=== PATIENT | female | born 1995 | race Hispanic/Latino ===

== ENCOUNTER 2019-02-08 10:06 | Emergency (ER) | payer OTHER ==
[2019-02-08 10:45] LABS: Absolute Lymphocytes (CBC) 0.9 K/uL (0.7-4.9); Basophils % 0.5 % (0-1.3); Hematocrit 38.2 % (36.0-45.0); Lymphocytes % 22.3 % (15.3-44.8); MPV 8.6 fL (7.6-11.3)
--- NOTE | 2019-02-08 11:03 | RAD REPORT ---
EXAM DESCRIPTION: CT - Head Brain Wo Cont - 02/08/2019 10:46 am CLINICAL HISTORY: WEAKNESS Headache, drowsiness COMPARISON: No comparisons TECHNIQUE: All CT scans are performed using dose optimization technique as appropriate and may inclu de automated exposure control or mA/KV adjustment according to patient size. FINDINGS: No intracranial hemorrhage, hydrocephalus or extra-axial fluid collection.No areas of brai n edema or evidence of midline shift. The paranasal sinuses and mastoids are clear. The calvarium is intact. IMPRESSION: No acute intracranial abnormality.
[2019-02-08 11:05] LABS: ALT/SGPT 16 U/L (12-78); AST/SGOT 16 U/L (15-37); Albumin 3.9 g/dL (3.4-5.0); Alkaline Phosphatase 38 U/L (45-117); BUN Blood Urea Nitrogen 9 mg/dL (7-18); Bicarbonate 28 mmol/L (21-32); Bilirubin Direct 0.1 mg/dL (0-0.2); Bilirubin Total 0.4 mg/dL (0.2-1.0); Glucose Level 89 mg/dL (74-106); Magnesium 2.2 mg/dL (1.8-2.4); Potassium 4.2 mmol/L (3.5-5.1); Sodium Level 140 mmol/L (136-145); Thyroid Stimulating Hormone 0.012 uIU/mL (0.360-3.740)
[2019-02-08 11:06] LABS: Barbiturates NEGATIVE (NEGATIVE); Benzodiazepines NEGATIVE (NEGATIVE); Cocaine NEGATIVE (NEGATIVE); METHAMPHETAM POSITIVE (NEGATIVE); Methadone NEGATIVE (NEGATIVE); Opiates NEGATIVE (NEGATIVE); Phencyclidine NEGATIVE (NEGATIVE); THC Cannibis NEGATIVE (NEGATIVE)
[2019-02-08 11:15] LABS: Urine RBC <5 /HPF (NONE SEEN)
[2019-02-08 11:16] LABS: Urine Bacteria NONE SEEN /HPF (<20); Urine Culture Reflex Order NOT NEEDED
--- NOTE | 2019-02-08 11:36 | EKG ---
Test Date: 2019-02-08 Test Time: 10:17:26 Overnight Caregiver: MEGAN MEASUREMENT RESULTS: Intervals: Rate: 88 NM: 122 QRSD: 78 QT: 364 QTc: 440 [place]: P: 29 NM: 122 QRS: 67 T: 59 INTERPRETIVE STATEMENTS: Normal sinus rhythm RSR' or QR pattern in V1 suggests right ventricular conduction delay Borderline ECG No previous ECG available for comparison Electronically Signed On 02-08-19 11:35:56 CDT by Boni Schneider
[2019-02-08] MEDS ORDERED: NA CHLORIDE 0.9% 1,000 ML ONE (12:50)
--- NOTE | 2019-02-08 13:13 | ER ---
Nurse's Notes [facility] Name: Brenda Moody Age: 23 yrs Sex: Female : 1995 Arrival Date: 02/08/2019 Time: 10:11 Bed 13 Private MD: Diagnosis: Chronic fatigue, unspecified Presentation: 02/08 10:13 Presenting complaint: EMS states: PT was in PCP office when EMS was called because of wh being lethargic. Pt states she is feeling weak and has chronic fatigue. Pt states she has Hx of Hypothyroidism and medication was just changed recently. Pt states she is always feeling tired and heavy. Transition of care: patient was received from another setting of care (ambulatory primary care physician practice), Dr Ronak PEDRO. Onset of symptoms was February 08, 2019. Risk Assessment: Do you want to hurt yourself or someone else? Patient reports no desire to harm self or others. Initial Sepsis Screen: Does the patient meet any 2 criteria? No. Patient's initial sepsis screen is negative. Does the patient have a suspected source of infection? No. Patient's initial sepsis screen is negative. Care prior to arrival: None. 10:13 Method Of Arrival: EMS: [facility] 10:13 Acuity: SHAHAB 3 Triage Assessment: 10:21 General: Appears in no apparent distress. General: Behavior is calm, cooperative, wh appropriate for age. Pain: Denies pain. 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 - Social history:: Smoking status: Patient/guardian denies using tobacco. - Ebola Screening: : Patient negative for fever greater than or equal to 101.5 degrees Fahrenheit, and additional compatible Ebola Virus Disease symptoms Patient denies exposure to infectious person. - Family history:: pertinent for chronic fatigue syndrome. - Hospitalizations: : No recent hospitalization is reported. Screenin:16 Abuse screen: Denies threats or abuse. Denies injuries from another. Nutritional wh screening: No deficits noted. Tuberculosis screening: No symptoms or risk factors identified. Fall Risk None identified. Assessment: 10:59 General: Appears in no apparent distress. General: Behavior is calm, lethargic. Reports wh fatigue for since 1 month ago. Pain: Denies pain. Neuro: Level of Consciousness is awake, alert, obeys commands, Oriented to person, place, time, situation, Appropriate for age Grain Combiner are equal bilaterally Reports weakness. Neuro: Reports. Cardiovascular: Heart tones S1 S2 Rhythm is regular. Respiratory: Airway is patent Respiratory effort is even, unlabored, Respiratory pattern is regular, symmetrical. GI: Abdomen is flat, non-distended, Abd is soft and non tender X 4 quads. : No signs and/or symptoms were reported regarding the genitourinary system. EENT: No signs and/or symptoms were reported regarding the EENT system. Derm: Skin is intact, is healthy with good turgor, Skin is pink, warm \T\ dry. normal. Musculoskeletal: Circulation, motion, and sensation intact. 11:45 Reassessment: Patient appears in no apparent distress at this time. No changes from previously documented assessment. Patient and/or family updated on plan of care and expected duration. Pain level reassessed. Patient is alert, oriented x 3, equal unlabored respirations, skin warm/dry/pink. 12:41 Reassessment: Patient appears in no apparent distress at this time. No changes from previously documented assessment. Patient and/or family updated on plan of care and expected duration. Pain level reassessed. Patient is alert, oriented x 3, equal unlabored respirations, skin warm/dry/pink. 13:36 Reassessment: Patient appears in no apparent distress at this time. No changes from previously documented assessment. Patient and/or family updated on plan of care and expected duration. Pain level reassessed. Patient is alert, oriented x 3, equal unlabored respirations, skin warm/dry/pink. Patient denies pain at this time. Patient states feeling better. Patient states symptoms have improved. Vital Signs: 10:20 BP 107 / 72; Pulse 96; Resp 20; Temp 99.2; Pulse Ox 100% ; wh 11:01 BP 111 / 73; Pulse 87; Resp 20; Pulse Ox 100% on R/A; 11:45 BP 101 / 69; Pulse 80; Resp 16; Pulse Ox 100% on R/A; 12:41 BP 96 / 65; Pulse 76; Resp 16; Pulse Ox 100% ; 13:36 BP 114 / 72; Pulse 70; Resp 18; Pulse Ox 99% on R/A; ED Course: 10:11 Patient arrived in ED. rn 10:11 Ulises Hussein MD is Attending Physician. rn 10:12 Jim Martinez is Primary Nurse. 10:16 Triage completed. 10:19 Arm band placed on right wrist. 10:20 Bed in low position. Call light in reach. Side rails up X 1. personnel monitor on. Pulse ox on. NIBP on. 10:20 Inserted saline lock: 20 gauge in right antecubital area, using aseptic technique. Blood collected. 10:21 Patient has correct armband on for positive identification. Warm blanket given. Cardiac [facility] monitor on. Pulse ox on. NIBP on. 10:46 CT Head Brain wo Cont In Process Unspecified. [facility] 11:02 Urine collected: clean catch specimen, clear, Amount Voided: 240mL EKG done, by ED [facility] staff, reviewed by Ulises Hussein MD. 11:02 Urine Drug Screen Sent. [facility] 11:02 Urine Microscopic Only Sent. [facility] 13:36 No provider procedures requiring assistance completed. 13:39 IV discontinued, intact, bleeding controlled, No redness/swelling at site. Administered Medications: 12:53 Drug: NS 0.9% 1000 ml Route: IV; Rate: 1000 ml; Site: right antecubital; 13:37 Follow up: Response: No adverse reaction; IV Status: Completed infusion Outcome: 13:12 Discharge ordered by . rn 13:40 Discharged to home ambulatory. 13:40 Condition: good 13:40 Discharge instructions given to patient, Instructed on discharge instructions, follow up and referral plans. POC Weakness and Fatigue Demonstrated understanding of instructions, follow-up care, POC 13:40 Patient left the ED. Signatures: Dispatcher [employer] EDKY Ulises Hussein MD MD rn Martinez, Maria Jim Lu Corrections: (The following items were deleted from the chart) 13:39 13:28 Patient did not have IV access during this emergency room visit. IV discontinued, wh Pressure dressing applied, mh5
--- NOTE | 2019-02-08 13:13 | EDPHYS ---
Physician Documentation [facility] Name: Brenda Moody Age: 23 yrs Sex: Female : 1995 Arrival Date: 02/08/2019 Time: 10:11 Bed 13 Private MD: ED Physician Ulises Hussein HPI: 02/08 10:43 This 23 yrs old Female presents to ER via EMS with complaints of weakness. rn 10:43 Reports has chronic fatigue syndrome and was seen by pcp today, sent here for fatigue. rn Patient reports takes her medication including thyroid supplement, vyvanse, and bipolar meds. This happens weekly to monthly, twin sister with same symptoms. Has been worked up numerous times and no diagnosis made. Reports eating well. No fever/injury/chest pain/sob/vomiting/diarrhea. Denies overdose.. Onset: The symptoms/episode began/occurred 1 week(s) ago. Severity of symptoms: At their worst the symptoms were moderate in the emergency department the symptoms are unchanged. The patient has experienced similar episodes in the past. The patient has been recently seen by a physician: the patient's primary care provider. 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 - Social history:: Smoking status: Patient/guardian denies using tobacco. - Ebola Screening: : Patient negative for fever greater than or equal to 101.5 degrees Fahrenheit, and additional compatible Ebola Virus Disease symptoms Patient denies exposure to infectious person. - Family history:: pertinent for chronic fatigue syndrome. - Hospitalizations: : No recent hospitalization is reported. ROS: 10:43 Constitutional: Negative for fever, chills, and weight loss, Eyes: Negative for injury, rn pain, redness, and discharge, Neck: Negative for injury, pain, and swelling, Cardiovascular: Negative for chest pain, palpitations, and edema, Respiratory: Negative for shortness of breath, cough, wheezing, and pleuritic chest pain, Abdomen/GI: Negative for abdominal pain, nausea, vomiting, diarrhea, and constipation, MS/Extremity: Negative for injury and deformity, Skin: Negative for injury, rash, and discoloration, Neuro: Negative for headache, numbness, tingling, and seizure. Exam: 10:43 Constitutional: This is a well developed, well nourished patient who is awake, alert, rn and in no acute distress. Flat affect and slow to respond. Head/Face: Normocephalic, atraumatic. Eyes: Pupils dilated but reactive and equal, no nystagmus ENT: MMM Neck: Trachea midline, no thyromegaly or masses palpated, and no cervical lymphadenopathy. Supple, full range of motion without nuchal rigidity, or vertebral point tenderness. No Meningismus. Cardiovascular: Regular rate and rhythm with a normal S1 and S2. No gallops, murmurs, or rubs. Normal PMI, no JVD. No pulse deficits. Respiratory: Lungs have equal breath sounds bilaterally, clear to auscultation and percussion. No rales, rhonchi or wheezes noted. No increased work of breathing, no retractions or nasal flaring. Abdomen/GI: Soft, non-tender, with normal bowel sounds. No distension or tympany. No guarding or rebound. No evidence of tenderness throughout. Skin: Warm, dry with normal turgor. Normal color with no rashes, no lesions, and no evidence of cellulitis. MS/ Extremity: Pulses equal, no cyanosis. Neurovascular intact. Full, normal range of motion. Equal circumference. Neuro: Awake and alert, GCS 15, oriented to person, place, time, and situation. Cranial nerves II-XII grossly intact. Motor strength 4/5 in all extremities. Sensory grossly intact. Cerebellar exam normal. Vital Signs: 10:20 BP 107 / 72; Pulse 96; Resp 20; Temp 99.2; Pulse Ox 100% ; wh 11:01 BP 111 / 73; Pulse 87; Resp 20; Pulse Ox 100% on R/A; wh 11:45 BP 101 / 69; Pulse 80; Resp 16; Pulse Ox 100% on R/A; wh 12:41 BP 96 / 65; Pulse 76; Resp 16; Pulse Ox 100% ; wh 13:36 BP 114 / 72; Pulse 70; Resp 18; Pulse Ox 99% on R/A; MDM: 10:12 Patient medically screened. rn 13:08 Differential Diagnosis dehydration, chronic fatigue syndrome, electrolyte disorder. . rn Data reviewed: vital signs, nurses notes, lab test result(s), radiologic studies, CT scan, and as a result, I will discharge patient. Counseling: I had a detailed discussion with the patient and/or guardian regarding: lab results, radiology results. Counseling: I had a detailed discussion with the patient and/or guardian regarding: the need for outpatient follow up, to return to the emergency department if symptoms worsen or persist or if there are any questions or concerns that arise at home. Response to treatment: the patient's symptoms have mildly improved after treatment, and as a result, I will discharge patient. Special discussion: I discussed with the patient/guardian in detail that at this point there is no indication for admission to the hospital. It is understood, however, that if the symptoms persist or worsen the patient needs to return immediately for re-evaluation. ED course: Pt states slightly improved, states this happens frequently. She tells me she drove herself to clinic today. And plans on walking back to clinic. No acute findings on ct head or bloodwork. Will dc home. Reeval does not show any meningeal signs, denies headache or neck pain. . 02/08 10:13 Order name: CBC with Diff; Complete Time: :41 rn 02/08 10:13 Order name: Basic Metabolic Panel; Complete Time: : rn 02/08 10:13 Order name: Urine Drug Screen; Complete Time: : rn 02/08 10:13 Order name: Urine Microscopic Only; Complete Time: :41 rn 02/08 10:13 Order name: Magnesium; Complete Time: :41 rn 02/08 10:13 Order name: TSH; Complete Time: :41 rn 02/08 10:13 Order name: T4 Free; Complete Time: : rn 02/08 10:13 Order name: Acetaminophen; Complete Time: :41 rn 02/08 10:13 Order name: ETOH Level; Complete Time: 11:41 rn 02/08 10:13 Order name: Hepatic Function; Complete Time: 11:41 rn 02/08 10:13 Order name: Salicylate; Complete Time: 12:47 rn 02/08 10:13 Order name: CT Head Brain wo Cont; Complete Time: 11:41 rn 02/08 11:20 Order name: Urine Dipstick--Ancillary (enter results) 02/08 11:21 Order name: Urine --Ancillary (enter results) 02/08 10:13 Order name: IV Start; Complete Time: 10:31 rn 02/08 10:13 Order name: Urine Test (obtain specimen); Complete Time: 10:53 rn 02/08 10:13 Order name: Urine Dipstick-Ancillary (obtain specimen); Complete Time: 10:53 rn 02/08 10:13 Order name: EKG; Complete Time: 10:15 rn 02/08 10:13 Order name: EKG - Nurse/Tech; Complete Time: 10:32 rn 02/08 10:13 Order name: Labs collected and sent; Complete Time: 10:32 rn Administered Medications: 12:53 Drug: NS 0.9% 1000 ml Route: IV; Rate: 1000 ml; Site: right antecubital; 13:37 Follow up: Response: No adverse reaction; IV Status: Completed infusion Disposition: 02/08/19 13:12 Discharged to Home. Impression: Chronic fatigue, unspecified. - Condition is Stable. - Discharge Instructions: Weakness, Fatigue. - Medication Reconciliation Form, Thank You Letter, Antibiotic Education, Prescription Opioid Use, Work release form form. - Follow up: Private Physician; When: As needed; Reason: Recheck today's complaints, Re-evaluation by your physician. - Problem is chronic. - Symptoms have improved. Signatures: Dispatcher [employer] EDUlises Smith MD MD rn Habalo, Winsy Corrections: (The following items were deleted from the chart) 13:40 13:12 02/08/2019 13:12 Discharged to Home. Impression: Chronic fatigue, unspecified. Condition is Stable. Forms are Medication Reconciliation Form, Thank You Letter, Antibiotic Education, Prescription Opioid Use. Follow up: Private Physician; When: As needed; Reason: Recheck today's complaints, Re-evaluation by your physician. Problem is chronic. Symptoms have improved. rn
[2019-02-08 13:58] VITALS: BP 114/72; O2SAT 99
[2019-02-08 14:04] VITALS: TEMP 97.5
[2019-02-08 14:16] LABS: Urine Blood NEGATIVE (NEG); Urine Glucose NEGATIVE (NEG); Urine Protein NEGATIVE (NEG); Urine pH 8.5 (5.0-7.0)
== END 2019-02-08 13:40 | disposition home or self-care (01) ==
LOC: ER 10:06
DX: R53.82 Chronic fatigue, unspecified (principal); E03.9 Hypothyroidism, unspecified
CPT/HCPCS: 93005; 85025; 80048; 36415; 80320; 83735; 80329 ×2; 81025; 80076; 80307 ×8; 84443; 84439; 70450; 96360; 99285; J7030; 81003; 81015

== ENCOUNTER 2019-04-11 12:40 | Emergency (ER) | payer OTHER ==
--- OUTSIDE RECORDS SUMMARY | 2019-04-11 12:42 | XMS REPORT ---
:1995 Author Organization e[employer] Care Team Providers Name Role Phone Adriano Simons Provider Role Unavailable Allergies No Known Allergies Problems Problem Type Condition Code Onset Dates Condition Status Problem Depression with anxiety F41.8 Active Problem Hypothyroidism, unspecified type E03.9 Active Problem Chronic fatigue R53.82 Active Assessment Hypothyroidism, unspecified type E03.9 Active Problem Bipolar II disorder major depressive F31.81 Active with atypical features Problem Seasonal allergies J30.2 Active Problem 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 Active Problem History of suicide attempt Z91.5 Active Problem Daytime somnolence R40.0 Active Problem Abnormal laboratory test R89.9 Active Problem Vitamin D insufficiency E55.9 Active Problem History of cold sores Z86.19 Active Problem Vitamin B12 deficiency E53.8 Active Medications Medication Code Code Instructions Start End Status Dosage System Date Date Synthroid [facility] 73993986625 125 MCG Orally Mar 16, Active 0.5 Once a day 2019 tablet on an empty stonach in the morning Levothyroxine ND 68674668151 50 MCG Orally Inactive 1 tablet Sodium Once a day on an empty stomach in the morning Results No Known Results Summary Purpose eClinicalWorks Submission
--- OUTSIDE RECORDS SUMMARY | 2019-04-11 12:42 | XMS REPORT ---
:1995 Author Organization [employer] Care Team Providers Name Role Phone SimonsAdriano Provider Role Unavailable Allergies, Adverse Reactions, Alerts Substance Reaction Event Type N.K.D.A. Info Not Available Non Drug Allergy Problems Problem Type Condition Code Onset Dates Condition Status Problem Depression with anxiety F41.8 Active Problem Hypothyroidism, unspecified type E03.9 Active Problem Chronic fatigue R53.82 Active Problem 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 Active Assessment History of cold sores Z86.19 Active Problem History of suicide attempt Z91.5 Active Assessment Encounter for surveillance of Z30.41 Active contraceptive pills Assessment History of suicide attempt Z91.5 Active Problem Daytime somnolence R40.0 Active Problem Abnormal laboratory test R89.9 Active Problem Vitamin D insufficiency E55.9 Active Problem History of cold sores Z86.19 Active Problem Vitamin B12 deficiency E53.8 Active Assessment Seasonal allergies J30.2 Active Assessment Depression with anxiety F41.8 Active Assessment Vitamin D insufficiency E55.9 Active Assessment Vitamin B12 deficiency E53.8 Active Assessment Bipolar II disorder major depressive F31.81 Active with atypical features Assessment Daytime somnolence R40.0 Active Assessment 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 Active Assessment Hypothyroidism, unspecified type E03.9 Active Problem Bipolar II disorder major depressive F31.81 Active with atypical features Assessment Noncompliance w/medication treatment Z91.14 Active due to intermit use of medication Assessment Chronic fatigue R53.82 Active Problem Seasonal allergies J30.2 Active Medications Medication Code Code Instructions Start End Status Dosage System Date Date Olanzapine [facility] 77531537670 2.5 MG Orally Active 1 tablet Once a day Prozac [facility] 37240507246 10 MG Orally Active 1 capsule Once a day Acyclovir ND 24578957177 400 MG Orally Active 1 tablet Three times a day Levothyroxine ND 22161162615 75 MCG Orally Active 1 tablet Sodium Once a day on an empty stomach in the morning Taytulla [facility] 47359706064 1-20 MG-MCG(24) Active 1 capsule Orally Once a day Brock [facility] 05006319360 50 MG Orally Mar 14, Active 1 capsule Once a day 2018 in the morning Josette [facility] 31488213709 2 MG Orally Active 1 tablet Once a day Results Name Result Date Reference Range Unit Abnormality Flag CBC With Differential/Platelet ----Lymphs 30 [id number] Not Estab. % ----Neutrophils 62 [id number] Not Estab. % ----Baso (Absolute) 0.0 [id number] 0.0-0.2 x10E3/uL ----Hemoglobin 12.2 45952486 11.1-15.9 g/dL ----Eos (Absolute) 0.1 [id number] 0.0-0.4 x10E3/uL ----Hematocrit 37.5 43692144 34.0-46.6 % ----Monocytes(Absolute) 0.4 [id number] 0.1-0.9 x10E3/uL ----MCV 80 04182261 79-97 fL ----Lymphs (Absolute) 1.7 95483728 0.7-3.1 x10E3/uL ----MCH 26.0 [id number] 26.6-33.0 pg L ----Neutrophils 3.4 [id number] 1.4-7.0 x10E3/uL (Absolute) ----MCHC 32.5 47280225 31.5-35.7 g/dL ----Immature 0 [id number] Not Estab. % Granulocytes ----Basos 0 [id number] Not Estab. % ----RDW 13.9 18213438 12.3-15.4 % ----Immature Grans (Abs) 0.0 [id number] 0.0-0.1 x10E3/uL ----Eos 1 79673842 Not Estab. % ----WBC 5.5 37239474 3.4-10.8 x10E3/uL ----Platelets 377 [id number] 150-450 x10E3/uL ----RBC 4.69 69594144 3.77-5.28 x10E6/uL ----Monocytes 7 [id number] Not Estab. % Thyroid Panel With TSH ----TSH 0.027 [id number] 0.450-4.500 uIU/mL L ----Thyroxine (T4) 9.5 05272779 4.5-12.0 ug/dL ----T3 Uptake 25 20190314 24-39 % ----Free Thyroxine Index 2.4 [id number] 1.2-4.9 Comp. Metabolic Panel (14) (CMP) ----Sodium 141 94151167 134-144 mmol/L ----BUN/Creatinine Ratio 16 [id number] 9-23 ----Chloride 103 03323659 96-106 mmol/L ----Potassium 4.1 36336868 3.5-5.2 mmol/L ----Calcium 9.1 70267313 8.7-10.2 mg/dL ----Protein, Total 6.8 89013680 6.0-8.5 g/dL ----Carbon Dioxide, 19 20190314 20-29 mmol/L L Total ----A/G Ratio 1.5 24318210 1.2-2.2 ----eGFR If NonAfricn Am 126 [id number] >59 mL/min/1.73 ----Bilirubin, Total <0.2 58926556 0.0-1.2 mg/dL ----eGFR If Africn Am 145 [id number] >59 mL/min/1.73 ----Albumin 4.1 98287742 3.5-5.5 g/dL ----BUN 10 18340154 6-20 mg/dL ----Globulin, Total 2.7 24928861 1.5-4.5 g/dL ----Creatinine 0.64 63438951 0.57-1.00 mg/dL ----ALT (SGPT) 7 [id number] 0-32 IU/L ----Glucose 143 11025084 65-99 mg/dL H ----Alkaline Phosphatase 37 [id number] 39-117 IU/L L ----AST (SGOT) 16 [id number] 0-40 IU/L Summary Purpose eClinicalWorks Submission
--- OUTSIDE RECORDS SUMMARY | 2019-04-11 12:42 | XMS REPORT ---
[...] Start End Status Dosage System Date Date Levothyroxine [facility] 03663832681 75 MCG Orally Active 1 tablet Sodium Once a day on an empty stomach in the morning Acyclovir [facility] 24198614282 400 MG Orally Active 1 tablet Three times a day Taytulla [facility] 36398450158 1-20 MG-MCG(24) Active 1 capsule Orally Once a day Vyvanse [facility] 58252363380 40 MG Orally Feb 24, Active 1 capsule Once a day 2019 in the morning Olanzapine [facility] 34509987954 2.5 MG Orally Active 1 tablet Once a day Prozac [facility] 03180180973 10 MG Orally Active 1 capsule Once a day Abilify [facility] 92975646675 2 MG Orally Active 1 tablet Once a day Results No Known Results Summary Purpose eClinicalWorks Submission
--- NOTE | 2019-04-11 12:58 | RAD REPORT ---
EXAM DESCRIPTION: CT - Ct Stroke Brain Wo Cont - 04/11/2019 12:53 pm CLINICAL HISTORY: stroke protocol CVA symptomology COMPARISON: Head Brain Wo Cont dated 02/08/2019 TECHNIQUE: All CT scans are performed using dose optimization technique as appropriate and may inclu de automated exposure control or mA/KV adjustment according to patient size. FINDINGS: No intracranial hemorrhage, hydrocephalus or extra-axial fluid collection.No areas of brai n edema or evidence of midline shift. The paranasal sinuses and mastoids are clear. The calvarium is intact. IMPRESSION: No acute intracranial abnormality. The findings were discussed with Rajendra Hendrix in the ER on 03/12/2019 at 12:50 p.m. by telephone.
[2019-04-11 13:16] LABS: Absolute Lymphocytes (CBC) 1.3 K/uL (0.7-4.9); Hematocrit 37.5 % (36.0-45.0); Lymphocytes % 25.6 % (15.3-44.8); MPV 7.6 fL (7.6-11.3); RBC Red Blood Cell Count 4.77 M/uL (3.86-4.86)
[2019-04-11 13:19] LABS: Protime INR 0.97
--- NOTE | 2019-04-11 13:24 | RAD REPORT ---
EXAM DESCRIPTION: RAD - Chest Single View - 04/11/2019 1:18 pm CLINICAL HISTORY: stroke protocol Chest pain. COMPARISON: No comparisons FINDINGS: Portable technique limits examination quality. The lungs are grossly clear. The heart is normal in size. No displaced fractures. IMPRESSION: No acute intrathoracic process suspected.
[2019-04-11 13:29] LABS: BUN Blood Urea Nitrogen 8 mg/dL (7-18); Bicarbonate 28 mmol/L (21-32); Glucose Level 70 mg/dL (74-106); Potassium 4.1 mmol/L (3.5-5.1); Sodium Level 141 mmol/L (136-145)
--- NOTE | 2019-04-11 13:45 | RAD REPORT ---
EXAM DESCRIPTION: MRI - Brain Wo Cont - 04/11/2019 1:37 pm CLINICAL HISTORY: right facial weakness and numbness CVA symptomology COMPARISON: Ct Stroke Brain Wo Cont dated 04/11/2019 TECHNIQUE: Multi-sequence, multiplanar MR imaging of the brain was performed without contrast. FINDINGS: No intracranial hemorrhage, hydrocephalus or extra-axial fluid collections. No edema or sh ift of midline structures. No findings to suspect brain mass. DWI is negative for acute CVA. Midline structures are normally formed. The paranasal sinuses appear clear. Trace bilateral mastoid effusion. IMPRESSION: Negative for acute CVA or other acute intracranial abnormality.
[2019-04-11 15:13] LABS: Urine Bacteria <20 /HPF (<20); Urine Culture Reflex Order NOT NEEDED; Urine RBC <5 /HPF (NONE SEEN)
--- NOTE | 2019-04-11 15:17 | ER ---
Nurse's Notes [facility] Name: Brenda Moody Age: 24 yrs Sex: Female : 1995 Arrival Date: 04/11/2019 Time: 12:43 Bed 25 Private MD: Diagnosis: Slurred speech;Paresthesia of skin Presentation: 04/11 12:40 No acute neurological deficit is noted. The patients blood glucose was checked before ca1 arriving to the hospital and was found to be normal. 12:45 Presenting complaint: Patient states: started 45 minutes ago. Pt started to have ca1 trouble speaking, facial drooping on the L side, numbness and tingling on the face, weakness side unspecified. Pt drove herself to the ER. Transition of care: patient was not received from another setting of care. Onset of symptoms was April 11, 2019 at 12:00. Risk Assessment: Do you want to hurt yourself or someone else? Patient reports no desire to harm self or others. Initial Sepsis Screen: Does the patient meet any 2 criteria? No. Patient's initial sepsis screen is negative. Does the patient have a suspected source of infection? No. Patient's initial sepsis screen is negative. Care prior to arrival: None. 12:45 Method Of Arrival: Wheelchair ca1 12:45 Acuity: SHAHAB 2 ca1 Triage Assessment: 12:45 The onset of the patients symptoms was April 11, 2019 at 12:00. ca1 12:45 Neuro: Reports difficulty speaking. ca1 12:45 General: Appears in no apparent distress. comfortable, Behavior is calm, cooperative, ca1 appropriate for age. 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 ca1 Stroke Activation: Symptom onset < 3 hours Physician: Stroke Attending; Name: ; Notified At: ; Arrived At: Physician: Chief Stroke Resident; Name: ; Notified At: ; Arrived At: Physician: Stroke Resident; Name: ; Notified At: ; Arrived At: Physician: ED Attending; Name: ; Notified At: ; Arrived At: Physician: ED Resident; Name: ; Notified At: ; Arrived At: Historical: - Allergies: 13:56 No Known Allergies; ca1 - Home Meds: 13:56 Abilify 2 mg Oral tab daily [Active]; levothyroxine 50 mcg tab 1 tab once daily ca1 [Active]; Taytulla ( Control Pills) [Active]; olanzapine oral oral [Active]; Fluoxetine Oral [Active]; - PMHx: 13:56 Hypothyroidism; Endometrosis; ca1 - Immunization history:: Adult Immunizations up to date, Flu vaccine is not up to date. - Family history:: not pertinent. - Ebola Screening: : Patient negative for fever greater than or equal to 101.5 degrees Fahrenheit, and additional compatible Ebola Virus Disease symptoms. - Social history:: Smoking status: Patient/guardian denies using tobacco, Patient uses alcohol, occasionally. - Hospitalizations: : No recent hospitalization is reported. Screenin:05 Abuse screen: Denies threats or abuse. Denies injuries from another. Nutritional ca1 screening: No deficits noted. Tuberculosis screening: No symptoms or risk factors identified. Fall Risk IV access (20 points). Gait- Weak (10 pts.). Total Holt Fall Scale indicates Low Risk Score (25-44 pts). Fall prevention measures have been instituted. Side Rails Up X 2 Frequent Obs/Assesments occuring. Assessment: 12:44 Reassessment: Code stroke called. Patient transported to CT VIA wheelchair by meño Zepeda RN. 13:05 General: Appears in no apparent distress. uncomfortable, Behavior is calm, cooperative, ca1 appropriate for age. Neuro: Level of Consciousness is awake, alert, obeys commands, Oriented to person, place, time, situation, Appropriate for age Electrotyper Helper are equal bilaterally Weakness in bilateral leg(s) Gait is unsteady, Speech is slurred, Facial droop on left, Pupils are PERRLA, Intact sensation on both extremities. C/O numbness on R side of face. . Cardiovascular: Heart tones S1 S2 present Capillary refill < 3 seconds Patient's skin is warm and dry. Respiratory: Airway is patent Respiratory effort is even, unlabored, Respiratory pattern is regular, symmetrical, Breath sounds are clear bilaterally. GI: Abdomen is flat, non-distended, Bowel sounds present X 4 quads. Abd is soft and non tender X 4 quads. : No deficits noted. No signs and/or symptoms were reported regarding the genitourinary system. EENT: No deficits noted. No signs and/or symptoms were reported regarding the EENT system. Derm: Skin is intact, is healthy with good turgor, Skin is pink, warm \T\ dry. Musculoskeletal: Circulation, motion, and sensation intact. Capillary refill < 3 seconds, Range of motion: intact in all extremities. 13:45 VAN Scoring: Arm Drift: Patients demonstrates NO arm weakness. Patient is VAN Negative. ca1 Patient has been NPO before screening. The patient is alert, and able to follow commands. The patient does not exhibit slurred or garbled speech. The patient is not exhibiting difficulty speaking. The patient is exhibiting difficulty understanding words. The patient is able to swallow own secretions with no drooling or need for suction. Patient tolerated one teaspoon of water. No drooling, immediate coughing, gurgling, or clearing of the throat was noted. The patient tolerated 90mL of water. No drooling, immediate coughing, gurgling, or clearing of the throat was noted. The patient passed the bedside swallow screening. Oral medications may be given as ordered. Contact Physician for further diet orders. Provider notified of bedside swallow screening results: Katelyn Woods RN. 13:47 Reassessment: Pt back from MRI. Reassessment: Patient appears in no apparent distress ca1 at this time. Speech is normal at this time. Swallow screen done. Passed. Requested for her cellphone to be handed to her. Using her phone at this time. Pain: Denies pain. Neuro: Speech is normal, Facial symmetry appears normal. 14:40 Reassessment: Patient appears in no apparent distress at this time. Patient is alert, ca1 oriented x 3, equal unlabored respirations, skin warm/dry/pink. Speech normal. Facial symmetry normal. 15:20 Reassessment: Patient appears in no apparent distress at this time. No changes from ca1 previously documented assessment. Patient is alert, oriented x 3, equal unlabored respirations, skin warm/dry/pink. Vital Signs: 12:45 BP 122 / 85; Pulse 83; Resp 17 S; Temp 99.5(O); Pulse Ox 100% on R/A; ca1 13:47 BP 131 / 82; Pulse 85; Resp 18 S; Pulse Ox 100% on R/A; Weight 54.43 kg (R); Height 5 ca1 ft. 3 in. (160.02 cm) (R); Pain 0/10; 14:40 BP 117 / 79; Pulse 84; Resp 16 S; Pulse Ox 100% on R/A; ca1 15:20 BP 110 / 79; Pulse 85; Resp 17 S; Pulse Ox 100% on R/A; ca1 13:47 Body Mass Index 21.26 (54.43 kg, 160.02 cm) ca1 NIH Stroke Scale Scores: 13:10 NIHSS Score: 3 ca1 13:35 NIHSS Score: 3 tavern operator Course: 12:43 Patient arrived in ED. aj1 12:44 Ulises Hussein MD is Attending Physician. rn 12:45 Arm band placed on right wrist. ca1 12:54 CT Stroke Brain w/o Contrast In Process Unspecified. EDMS 13:01 Katelyn Woods, RN is Primary Nurse. ca1 13:05 Patient has correct armband on for positive identification. Placed in gown. Bed in low ca1 position. Call light in reach. Side rails up X2. hall monitor on. Pulse ox on. NIBP on. Warm blanket given. 13:09 EKG done, by appliance service technician. reviewed by Ulises Hussein MD. at1 13:12 No provider procedures requiring assistance completed. Inserted saline lock: 20 gauge ca1 in left antecubital area, using aseptic technique. Blood collected. 13:16 Triage completed. ca1 13:19 Stroke CXR 1 View In Process Unspecified. EDMS 13:21 Brain Wo Cont MRI In Process Unspecified. EDMS 13:21 Patient moved to MRI via stretcher. ca1 15:30 IV discontinued, intact, bleeding controlled, No redness/swelling at site. Pressure ca1 dressing applied. Administered Medications: No medications were administered Point of Care Testing: Blood Glucose: 13:10 Blood Glucose: 78 mg/dL; ca1 Ranges: Outcome: 15:16 Discharge ordered by . rn 15:30 Discharged to home ambulatory. ca1 15:30 Condition: stable 15:30 Discharge instructions given to patient, Instructed on discharge instructions, follow up and referral plans. Demonstrated understanding of instructions, follow-up care. 15:34 Patient left the ED. ca1 NIH Stroke Scale - NIH Stroke Score Date: 04/11/2019 Time: 13:10 Total Score = 3 1a. Level of Consciousness (LOC) - 0(Alert) 1b. Level of Consciousness (LOC) (Year \T\ Age) - 0(Both) 1c. LOC Commands (Open \T\ Closes Eyes/Industrial Welder) - 0(Both) 2. Best Gaze (Lateral Gaze Paresis) - 0(Normal) 3. Visual Field Loss - 0(No visual loss) 4. Facial Palsy - 1(Minor Paralysis) 5a. Left Arm: Motor (10-second hold) - 0(No drift) 5b. Right Arm: Motor (10-second hold) - 0(No drift) 6a. Left Leg: Motor (5-second hold - always test supine) - 0(No drift) 6b. Right Leg: Motor (5-second hold - always test supine) - 0(No drift) 7. Limb Ataxia (finger/nose \T\ heel/nye - test with eyes open) - 0(Absent) 8. Sensory Loss (pinprick arms/legs/face) - 0(Normal) 9. Best Language: Aphasia (description/naming/reading) - 1(Mild to moderate aphasia) 10. Dysarthria (speech clarity - read or repeat words) - 1(Mild to Moderate) 11. Extinction and Inattention (visual/tactile/auditory/spatial/personal) - 0(No abnormality) Initials: ca1 NIH Stroke Scale - NIH Stroke Score Date: 04/11/2019 Time: 13:35 Total Score = 3 1a. Level of Consciousness (LOC) - 0(Alert) 1b. Level of Consciousness (LOC) (Year \T\ Age) - 0(Both) 1c. LOC Commands (Open \T\ Closes Eyes/Industrial Welder) - 0(Both) 2. Best Gaze (Lateral Gaze Paresis) - 0(Normal) 3. Visual Field Loss - 0(No visual loss) 4. Facial Palsy - 1(Minor Paralysis) 5a. Left Arm: Motor (10-second hold) - 0(No drift) 5b. Right Arm: Motor (10-second hold) - 0(No drift) 6a. Left Leg: Motor (5-second hold - always test supine) - 0(No drift) 6b. Right Leg: Motor (5-second hold - always test supine) - 0(No drift) 7. Limb Ataxia (finger/nose \T\ heel/nye - test with eyes open) - 0(Absent) 8. Sensory Loss (pinprick arms/legs/face) - 1(Mild to moderate loss) 9. Best Language: Aphasia (description/naming/reading) - 0(No aphasia) 10. Dysarthria (speech clarity - read or repeat words) - 1(Mild to Moderate) 11. Extinction and Inattention (visual/tactile/auditory/spatial/personal) - 0(No abnormality) Initials: rn Signatures: Dispatcher [employer] EDOmaira Juarez, RN RN aj1 Ulises Hussein MD MD rn Smirch, Shelby, RN RN ss [place], medical doctor EKG Tat1 Katelyn Woods RN RN ca1 Corrections: (The following items were deleted from the chart) 12:50 12:44 Reassessment: Code stroke called. Patient transported to CT VIA wheelchair by Darya Roberts RN 13:18 12:45 BP 122 / 85; Pulse 83bpm; Resp 17bpm; Spontaneous; Pulse Ox 100% RA; ca1 ca1 13:57 13:47 Neuro: Speech is normal, ca1 ca1 13:57 13:47 Reassessment: Patient appears in no apparent distress at this time. ca1 Speech is normal at this time. Swallow screen done. Passed. Requested for her cellphone to be handed to her. Using her phone at this time. ca1 15:21 15:20 Reassessment: Patient appears in no apparent distress at this time. ca1 Patient is alert, oriented x 3, equal unlabored respirations, skin warm/dry/pink. ca1
--- NOTE | 2019-04-11 15:18 | EDPHYS ---
Physician Documentation [facility] Name: Brenda Moody Age: 24 yrs Sex: Female : 1995 Arrival Date: 04/11/2019 Time: 12:43 Bed 25 Private MD: ED Physician Ulises Hussein HPI: 04/11 13:00 This 24 yrs old Female presents to ER via Unassigned with complaints of facial rn weakness and numbness. 13:00 Patient reports approx 45 min prior to arrival began with total body pain, generalized rn weakness, numbness and weakness of right side of face. I have seen her before for chronic fatigue syndrome where she becomes so weak that she cannot move or speak for hours, has had multiple negative stroke and neuro w/u, patient states feels similar except for facial symptoms. No head injury. + recent cold symptoms.. 13:00 The patient presents to the emergency department with weakness of the right side of the rn face, entire body, generalized weakness. Onset: The symptoms/episode began/occurred 45 minute(s) ago. Associated signs and symptoms: Pertinent positives: weakness, Pertinent negatives: chills, fever, neck stiffness, paresthesias, seizure, syncope, near-syncope, blurred vision, double vision, visual field changes, loss of vision. Severity of symptoms: At their worst the symptoms were moderate in the emergency department the symptoms have improved. Current symptoms: generalized weakness. The patient has experienced similar episodes in the past. 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 - Family history:: not pertinent. - Ebola Screening: : Patient negative for fever greater than or equal to 101.5 degrees Fahrenheit, and additional compatible Ebola Virus Disease symptoms. - Social history:: Smoking status: Patient/guardian denies using tobacco, Patient uses alcohol, occasionally. - Hospitalizations: : No recent hospitalization is reported. ROS: 13:00 Constitutional: Negative for fever, chills, and weight loss, Eyes: Negative for injury, rn pain, redness, and discharge, Neck: Negative for injury, pain, and swelling, Cardiovascular: Negative for chest pain, palpitations, and edema, Respiratory: Negative for shortness of breath, cough, wheezing, and pleuritic chest pain, Abdomen/GI: Negative for abdominal pain, nausea, vomiting, diarrhea, and constipation, MS/Extremity: Negative for injury and deformity, Skin: Negative for injury, rash, and discoloration, Neuro: Negative for headache, and seizure. Exam: 13:00 Constitutional: This is a well developed, well nourished patient who is awake, alert, rn and in no acute distress. Appears anxious and able to ambulate from wheelchair to bed Head/Face: Normocephalic, atraumatic. Eyes: Pupils equal round and reactive to light, extra-ocular motions intact. Lids and lashes normal. Conjunctiva and sclera are non-icteric and not injected. Cornea within normal limits. Periorbital areas with no swelling, redness, or edema. ENT: MMM Neck: Trachea midline, no thyromegaly or masses palpated, and no cervical lymphadenopathy. Supple, full range of motion without nuchal rigidity, or vertebral point tenderness. No Meningismus. Cardiovascular: Regular rate and rhythm. No pulse deficits. Respiratory: No increased work of breathing, no retractions or nasal flaring. Abdomen/GI: Soft, non-tender MS/ Extremity: Pulses equal, no cyanosis. Neurovascular intact. Full, normal range of motion. Equal circumference. Neuro: Awake and alert, GCS 15, oriented to person, place, time, and situation. Unable to elevated right eyebrow, unable to fully smile on left side of mouth, no ptosis. 4/5 strength in all extremities and able to ambulate without assistance. Normal sensation of all 4 extremities. + decreased sensation to soft touch right lower face. 13:07 ECG was reviewed by the Attending Physician. rn Vital Signs: 12:45 BP 122 / 85; Pulse 83; Resp 17 S; Temp 99.5(O); Pulse Ox 100% on R/A; ca1 13:47 BP 131 / 82; Pulse 85; Resp 18 S; Pulse Ox 100% on R/A; Weight 54.43 kg (R); Height 5 ca1 ft. 3 in. (160.02 cm) (R); Pain 0/10; 14:40 BP 117 / 79; Pulse 84; Resp 16 S; Pulse Ox 100% on R/A; ca1 15:20 BP 110 / 79; Pulse 85; Resp 17 S; Pulse Ox 100% on R/A; ca1 13:47 Body Mass Index 21.26 (54.43 kg, 160.02 cm) ca1 NIH Stroke Scale Scores: 13:10 NIHSS Score: 3 ca1 13:35 NIHSS Score: 3 rn MDM: 12:44 Patient medically screened. rn 15:11 Data reviewed: vital signs, nurses notes, lab test result(s), EKG, radiologic studies, rn CT scan, MRI, and as a result, I will discharge patient. Counseling: I had a detailed discussion with the patient and/or guardian regarding: the historical points, exam findings, and any diagnostic results supporting the discharge/admit diagnosis, lab results, radiology results, the need for outpatient follow up, to return to the emergency department if symptoms worsen or persist or if there are any questions or concerns that arise at home. Response to treatment: the patient's symptoms have markedly improved after treatment, the patient's symptoms have resolved after treatment, the patient's condition has returned to base line, the patient is now symptom free, patient is well hydrated. and as a result, I will discharge patient. Special discussion: I discussed with the patient/guardian in detail that at this point there is no indication for admission to the hospital. It is understood, however, that if the symptoms persist or worsen the patient needs to return immediately for re-evaluation. Based on the history and exam findings, there is no indication for further emergent testing or inpatient evaluation. I discussed with the patient/guardian the need to see the neurologist for further evaluation of the symptoms. ED course: Symptoms have entirely resolved, CT head/labs/ekg/MRI brain negative. Normal vitals. Will dc home given neg w/u, resolution of symptoms, and similar to previous severe fatigue/unexplained neurological episodes. . 04/11 12:49 Order name: Basic Metabolic Panel; Complete Time: 13:34 ss 04/11 12:49 Order name: CBC with Diff; Complete Time: 13:34 ss 04/11 12:49 Order name: Protime (+inr); Complete Time: 13:34 ss 04/11 12:49 Order name: Ptt, Activated; Complete Time: 13:34 ss 04/11 12:57 Order name: Urine Microscopic Only; Complete Time: 15:17 rn 04/11 13:21 Order name: Glucose, Ancillary Testing; Complete Time: 13:34 EDMS 12 12:49 Order name: CT Stroke Brain w/o Contrast; Complete Time: 13:34 ss 04/11 12:49 Order name: Stroke CXR 1 View; Complete Time: 13:34 ss 04/11 12:49 Order name: EKG; Complete Time: 12:50 ss 04/11 12:49 Order name: Accucheck; Complete Time: 14:00 ss 04/11 12:49 Order name: Cardiac monitoring; Complete Time: 13:02 ss 04/11 12:49 Order name: EKG - Nurse/Tech; Complete Time: 14:00 ss 04/11 12:49 Order name: IV Saline Lock; Complete Time: 13:02 ss 04/11 13:00 Order name: Brain Wo Cont MRI; Complete Time: 14:04 rn 04/11 12:49 Order name: Labs collected and sent; Complete Time: 13:02 ss 04/11 12:49 Order name: NPO; Complete Time: 13:02 ss 04/11 12:49 Order name: O2 Per Protocol; Complete Time: 13:02 ss 04/11 12:49 Order name: O2 Sat Monitoring; Complete Time: 13:02 ss 04/11 12:49 Order name: Stroke Swallow Screen; Complete Time: 14:00 ss 04/11 12:57 Order name: Urine Test (obtain specimen); Complete Time: 15:20 rn 04/11 12:57 Order name: Urine Dipstick-Ancillary (obtain specimen); Complete Time: 15:20 rn EC:07 Rate is 85 beats/min. Rhythm is regular. QRS [place] is Normal. ND interval is normal. QRS rn interval is normal. QT interval is normal. No Q waves. T waves are Normal. No ST changes noted. Clinical impression: Normal ECG. Interpreted by me. Reviewed by me. Administered Medications: No medications were administered Point of Care Testing: Blood Glucose: 13:10 Blood Glucose: 78 mg/dL; ca1 Ranges: Critical Glucose Levels:Adult <50 mg/dl or >400 mg/dl <40 mg/dl or >180 mg/dl Disposition: 04/11/19 15:16 Discharged to Home. Impression: Slurred speech, Paresthesia of skin. - Condition is Stable. - Discharge Instructions: Paresthesia, Weakness. - Medication Reconciliation Form, Thank You Letter, Antibiotic Education, Prescription Opioid Use, Work release form form. - Follow up: Private Physician; When: As needed; Reason: Recheck today's complaints, Re-evaluation by your physician. - Problem is new. - Symptoms have improved. NIH Stroke Scale - NIH Stroke Score Date: 04/11/2019 Time: 13:10 Total Score = 3 1a. Level of Consciousness (LOC) - 0(Alert) 1b. Level of Consciousness (LOC) (Year \T\ Age) - 0(Both) 1c. LOC Commands (Open \T\ Closes Eyes/Ammonia Technician) - 0(Both) 2. Best Gaze (Lateral Gaze Paresis) - 0(Normal) 3. Visual Field Loss - 0(No visual loss) 4. Facial Palsy - 1(Minor Paralysis) 5a. Left Arm: Motor (10-second hold) - 0(No drift) 5b. Right Arm: Motor (10-second hold) - 0(No drift) 6a. Left Leg: Motor (5-second hold - always test supine) - 0(No drift) 6b. Right Leg: Motor (5-second hold - always test supine) - 0(No drift) 7. Limb Ataxia (finger/nose \T\ heel/nye - test with eyes open) - 0(Absent) 8. Sensory Loss (pinprick arms/legs/face) - 0(Normal) 9. Best Language: Aphasia (description/naming/reading) - 1(Mild to moderate aphasia) 10. Dysarthria (speech clarity - read or repeat words) - 1(Mild to Moderate) 11. Extinction and Inattention (visual/tactile/auditory/spatial/personal) - 0(No abnormality) Initials: ca1 NIH Stroke Scale - NIH Stroke Score Date: 04/11/2019 Time: 13:35 Total Score = 3 1a. Level of Consciousness (LOC) - 0(Alert) 1b. Level of Consciousness (LOC) (Year \T\ Age) - 0(Both) 1c. LOC Commands (Open \T\ Closes Eyes/Ammonia Technician) - 0(Both) 2. Best Gaze (Lateral Gaze Paresis) - 0(Normal) 3. Visual Field Loss - 0(No visual loss) 4. Facial Palsy - 1(Minor Paralysis) 5a. Left Arm: Motor (10-second hold) - 0(No drift) 5b. Right Arm: Motor (10-second hold) - 0(No drift) 6a. Left Leg: Motor (5-second hold - always test supine) - 0(No drift) 6b. Right Leg: Motor (5-second hold - always test supine) - 0(No drift) 7. Limb Ataxia (finger/nose \T\ heel/nye - test with eyes open) - 0(Absent) 8. Sensory Loss (pinprick arms/legs/face) - 1(Mild to moderate loss) 9. Best Language: Aphasia (description/naming/reading) - 0(No aphasia) 10. Dysarthria (speech clarity - read or repeat words) - 1(Mild to Moderate) 11. Extinction and Inattention (visual/tactile/auditory/spatial/personal) - 0(No abnormality) Initials: rn Signatures: Dispatcher [employer] EDMS Ulises Hussein MD MD rn Smirch, Shelby, RN RN ss AcKatelyn watkins RN RN ca1 Corrections: (The following items were deleted from the chart) 15:34 15:16 04/11/2019 15:16 Discharged to Home. Impression: Slurred speech; ca1 Paresthesia of skin. Condition is Stable. Forms are Medication Reconciliation Form, Thank You Letter, Antibiotic Education, Prescription Opioid Use. Follow up: Private Physician; When: As needed; Reason: Recheck today's complaints, Re-evaluation by your physician. Problem is new. Symptoms have improved. rn
[2019-04-11 17:04] VITALS: O2SAT 100
[2019-04-11 17:05] VITALS: TEMP 99.5
[2019-04-11 17:08] VITALS: BP 110/79
--- NOTE | 2019-04-12 06:21 | EKG ---
Test Date: 2019-04-11 Test Time: 13:05:24 Per Diem Nurse: JAYJAY MEASUREMENT RESULTS: Intervals: Rate: 85 FL: 126 QRSD: 76 QT: 370 QTc: 440 [place]: P: 18 FL: 126 QRS: 53 T: 51 INTERPRETIVE STATEMENTS: Normal sinus rhythm Normal ECG Compared to ECG 02/08/2019 10:17:26 No significant changes Electronically Signed On 04-12-19 06:20:44 BLINDSTITCH LINING FELLER by Boni Schneider
== END 2019-04-11 15:34 | disposition home or self-care (01) ==
LOC: ER 12:40
DX: R47.81 Slurred speech (principal); E03.9 Hypothyroidism, unspecified
CPT/HCPCS: 36415; 70450; 70551; 71045; 80048; 81015; 82947; 85025; 85610; 85730; 93005; 99285

== ENCOUNTER 2019-06-01 10:22 | Emergency (ER) | payer OTHER ==
--- OUTSIDE RECORDS SUMMARY | 2019-06-01 10:25 | XMS REPORT ---
[...] End Status Dosage System Date Date Levothyroxine [facility] 10470493279 75 MCG Orally Active 1 tablet Sodium Once a day on an empty stomach in the morning Acyclovir [facility] 87921044625 400 MG Orally Active 1 tablet Three times a day Taytulla [facility] 99445033230 1-20 MG-MCG(24) Active 1 capsule Orally Once a day Vyvanse [facility] 57819628360 40 MG Orally Feb 24, Active 1 capsule Once a day 2019 in the morning Olanzapine [facility] 33671629003 2.5 MG Orally Active 1 tablet Once a day Prozac [facility] 98719054851 10 MG Orally Active 1 capsule Once a day Abilify [facility] 54670074030 2 MG Orally Active 1 tablet Once a day Results No Known Results Summary Purpose eClinicalWorks Submission
--- OUTSIDE RECORDS SUMMARY | 2019-06-01 10:25 | XMS REPORT ---
[...] End Status Dosage System Date Date Olanzapine [facility] 88250454686 2.5 MG Orally Active 1 tablet Once a day Prozac [facility] 19932126487 10 MG Orally Active 1 capsule Once a day Acyclovir ND 10226885833 400 MG Orally Active 1 tablet Three times a day Levothyroxine ND 00551589334 75 MCG Orally Active 1 tablet Sodium Once a day on an empty stomach in the morning Taytulla [facility] 79169701941 1-20 MG-MCG(24) Active 1 capsule Orally Once a day Brock [facility] 10147378067 50 MG Orally Mar 14, Active 1 capsule Once a day 2018 in the morning Josette [facility] 29790455575 2 MG Orally Active 1 tablet Once a day Results Name Result Date Reference Range Unit Abnormality Flag CBC With Differential/Platelet ----Lymphs 30 [id number] Not Estab. % ----Neutrophils 62 [id number] Not Estab. % ----Baso (Absolute) 0.0 [id number] 0.0-0.2 x10E3/uL ----Hemoglobin 12.2 34414476 11.1-15.9 g/dL ----Eos (Absolute) 0.1 52058888 0.0-0.4 x10E3/uL ----Hematocrit 37.5 96430635 34.0-46.6 % ----Monocytes(Absolute) 0.4 42203460 0.1-0.9 x10E3/uL ----MCV 80 16382976 79-97 fL ----Lymphs (Absolute) 1.7 90977083 0.7-3.1 x10E3/uL ----MCH 26.0 90884283 26.6-33.0 pg L ----Neutrophils 3.4 43393354 1.4-7.0 x10E3/uL (Absolute) ----MCHC 32.5 88487631 31.5-35.7 g/dL ----Immature 0 47057410 Not Estab. % Granulocytes ----Basos 0 04221663 Not Estab. % ----RDW 13.9 10353608 12.3-15.4 % ----Immature Grans (Abs) 0.0 73220051 0.0-0.1 x10E3/uL ----Eos 1 82960903 Not Estab. % ----WBC 5.5 73063462 3.4-10.8 x10E3/uL ----Platelets 377 36722241 150-450 x10E3/uL ----RBC 4.69 68205213 3.77-5.28 x10E6/uL ----Monocytes 7 08665886 Not Estab. % Thyroid Panel With TSH ----TSH 0.027 [id number] 0.450-4.500 uIU/mL L ----Thyroxine (T4) 9.5 86499954 4.5-12.0 ug/dL ----T3 Uptake 25 20190314 24-39 % ----Free Thyroxine Index 2.4 65707725 1.2-4.9 Comp. Metabolic Panel (14) (CMP) ----Sodium 141 31707621 134-144 mmol/L ----BUN/Creatinine Ratio 16 20190314 9-23 ----Chloride 103 99110949 96-106 mmol/L ----Potassium 4.1 81484553 3.5-5.2 mmol/L ----Calcium 9.1 52205293 8.7-10.2 mg/dL ----Protein, Total 6.8 78303396 6.0-8.5 g/dL ----Carbon Dioxide, 19 20190314 20-29 mmol/L L Total ----A/G Ratio 1.5 98870247 1.2-2.2 ----eGFR If NonAfricn Am 126 35218452 >59 mL/min/1.73 ----Bilirubin, Total <0.2 27005153 0.0-1.2 mg/dL ----eGFR If Africn Am 145 99573114 >59 mL/min/1.73 ----Albumin 4.1 77337176 3.5-5.5 g/dL ----BUN 10 28982875 6-20 mg/dL ----Globulin, Total 2.7 28418827 1.5-4.5 g/dL ----Creatinine 0.64 00000603 0.57-1.00 mg/dL ----ALT (SGPT) 7 12819736 0-32 IU/L ----Glucose 143 25071414 65-99 mg/dL H ----Alkaline Phosphatase 37 34592750 39-117 IU/L L ----AST (SGOT) 16 20190314 0-40 IU/L Summary Purpose eClinicalWorks Submission
--- OUTSIDE RECORDS SUMMARY | 2019-06-01 10:26 | XMS REPORT ---
:1995 Author Organization eClinicalWorks Care Team Providers Name Role Phone SimonsAbbieh Provider Role Unavailable Allergies, Adverse Reactions, Alerts [...] depressive F31.81 Active with atypical features Assessment Multiple joint pain M25.50 Active Assessment Hypothyroidism, unspecified type E03.9 Active Problem Bipolar II disorder major depressive F31.81 Active with atypical features Assessment Noncompliance w/medication treatment Z91.14 Active due to intermit use of medication Assessment Chronic fatigue R53.82 Active Problem Seasonal allergies J30.2 Active Medications Medication Code Code Instructions Start End Status Dosage System Date Date Levothyroxine [facility] 24996494241 75 MCG Orally Inactive 1 tablet Sodium Once a day on an empty stomach in the morning Prozac [facility] 84324317474 10 MG Orally Active 1 capsule Once a day Olanzapine ND 42310265353 2.5 MG Orally Active 1 tablet Once a day Vyvanse [facility] 31437561866 50 MG Orally Apr 12, Active 1 capsule Once a day 2019 in the morning Abilify [facility] 45505574250 2 MG Orally Active 1 tablet Once a day Acyclovir [facility] 88747332188 400 MG Orally Active 1 tablet Three times a day Synthroid [facility] 05807832663 125 MCG Orally Active 0.5 Once a day tablet on an empty stonach in the morning [facility] 00542941811 1-20 MG-MCG(24) Active 1 capsule Orally Once a day Results No Known Results Summary Purpose eClinicalWorks Submission
--- OUTSIDE RECORDS SUMMARY | 2019-06-01 10:26 | XMS REPORT ---
[...] End Status Dosage System Date Date Synthroid [facility] 54836321693 125 MCG Orally Mar 16, Active 0.5 Once a day 2019 tablet on an empty stonach in the morning Levothyroxine ND 15496789478 50 MCG Orally Inactive 1 tablet Sodium Once a day on an empty stomach in the morning Results No Known Results Summary Purpose eClinicalWorks Submission
--- OUTSIDE RECORDS SUMMARY | 2019-06-01 10:26 | XMS REPORT ---
:1995 Author Organization eClinicalWorks Care Team Providers Name Role Phone Ronak Adriano Provider Role Unavailable Allergies No Known Allergies [...] Problem Vitamin B12 deficiency E53.8 Active Assessment Hypothyroidism, unspecified type E03.9 Active Problem Bipolar II disorder major depressive F31.81 Active with atypical features Assessment Chronic fatigue R53.82 Active Problem Seasonal allergies J30.2 Active Medications No Known Medications Results No Known Results Summary Purpose eClinicalWorks Submission
--- OUTSIDE RECORDS SUMMARY | 2019-06-01 10:26 | XMS REPORT ---
:1995 Author Organization eClinicalWorks Care Team Providers Name Role Phone Abbie Simonsh Provider Role Unavailable Allergies, Adverse Reactions, Alerts Substance Reaction Event Type N.K.D.A. Info Not Available Non Drug Allergy Problems Problem Type Condition Code Onset Dates Condition Status Assessment Family history of attention deficit Z81.8 Active hyperactivity disorder (ADHD) Assessment Inattention R41.840 Active Assessment Multiple joint pain M25.50 Active Problem Seasonal allergies J30.2 Active Assessment Noncompliance w/medication Z91.14 Active treatment due to intermit use of medication Problem Depression with anxiety F41.8 Active Assessment History of suicide attempt Z91.5 Active Problem Chronic fatigue R53.82 Active Problem Vitamin D insufficiency E55.9 Active Problem Hypothyroidism, unspecified type E03.9 Active Problem Daytime somnolence R40.0 Active Problem 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 Active Assessment Vitamin D insufficiency E55.9 Active Assessment History of cold sores Z86.19 Active Problem Inattention R41.840 Active Assessment Encounter for surveillance of Z30.41 Active contraceptive pills Problem History of cold sores Z86.19 Active Problem Abnormal laboratory test R89.9 Active Problem Vitamin B12 deficiency E53.8 Active Problem History of suicide attempt Z91.5 Active Assessment Depression with anxiety F41.8 Active Assessment Hypothyroidism, unspecified type E03.9 Active Assessment Vitamin B12 deficiency E53.8 Active Assessment Seasonal allergies J30.2 Active Problem Bipolar II disorder major F31.81 Active depressive with atypical features Assessment Chronic fatigue R53.82 Active Assessment Bipolar II disorder major F31.81 Active depressive with atypical features Medications Medication Code Code Instructions Start End Status Dosage System Date Date Levothyroxine [facility] 83280571465 75 MCG Orally Inactive 1 tablet Sodium Once a day on an empty stomach in the morning Synthroid ND 11597146516 125 MCG Orally Inactive 0.5 Once a day tablet on an empty stonach in the morning Taytulla [facility] 96068534002 1-20 MG-MCG(24) Active 1 capsule Orally Once a day Acyclovir [facility] 65623464086 400 MG Orally Active 1 tablet Three times a day Prozac [facility] 45393523849 10 MG Orally Active 1 capsule Once a day Vyvanse [facility] 16332982239 50 MG Orally Active 1 capsule Once a day in the morning Olanzapine [facility] 85938999950 2.5 MG Orally Active 1 tablet Once a day Abilify [facility] 93052221411 2 MG Orally Active 1 tablet Once a day Results No Known Results Summary Purpose eClinicalWorks Submission
--- OUTSIDE RECORDS SUMMARY | 2019-06-01 10:26 | XMS REPORT ---
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
--- OUTSIDE RECORDS SUMMARY | 2019-06-01 10:27 | XMS REPORT ---
:1995 Author Organization eClinicalWorks Care Team Providers Name Role Phone Ronak [facility] Provider Role Unavailable Allergies No Known Allergies Problems Problem Type Condition Code Onset Dates Condition Status Problem Hypothyroidism, unspecified type E03.9 Active Problem Abnormal laboratory test R89.9 Active Problem Vitamin D insufficiency E55.9 Active Problem Bipolar II disorder major F31.81 Active depressive with atypical features Problem Seasonal allergies J30.2 Active Problem Depression with anxiety F41.8 Active Problem Chronic fatigue R53.82 Active Problem Non-seasonal allergic rhinitis, J30.89 Active unspecified trigger Problem 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 Active Problem Inattention R41.840 Active Problem History of cold sores Z86.19 Active Problem Vitamin B12 deficiency E53.8 Active Problem Daytime somnolence R40.0 Active Problem History of suicide attempt Z91.5 Active Medications No Known Medications Results No Known Results Summary Purpose eClinicalWorks Submission
--- OUTSIDE RECORDS SUMMARY | 2019-06-01 10:27 | XMS REPORT ---
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 Active Problem Inattention R41.840 Active Problem History of cold sores Z86.19 Active Problem Vitamin B12 deficiency E53.8 Active Problem Daytime somnolence R40.0 Active Problem History of suicide attempt Z91.5 Active Assessment History of suicide attempt Z91.5 Active Assessment Depression with anxiety F41.8 Active Problem Bipolar II disorder major F31.81 Active depressive with atypical features Problem Seasonal allergies J30.2 Active Assessment Bipolar II disorder major F31.81 Active depressive with atypical features Problem Depression with anxiety F41.8 Active Problem Chronic fatigue R53.82 Active Medications No Known Medications Results No Known Results Summary Purpose eClinicalWorks Submission
--- OUTSIDE RECORDS SUMMARY | 2019-06-01 10:27 | XMS REPORT ---
:1995 Author Organization eClinicalWorks Care Team Providers Name Role Phone Ronak Adriano Provider Role Unavailable Allergies, Adverse Reactions, Alerts Substance Reaction Event Type N.K.D.A. Info Not Available Non Drug Allergy Problems Problem Type Condition Code Onset Dates Condition Status Assessment Non-seasonal allergic rhinitis, J30.89 Active unspecified trigger Assessment Family history of attention deficit Z81.8 Active hyperactivity disorder (ADHD) Assessment Inattention R41.840 Active Assessment Multiple joint pain M25.50 Active Assessment Noncompliance w/medication Z91.14 Active treatment due to intermit use of medication Problem Depression with anxiety F41.8 Active Assessment History of suicide attempt Z91.5 Active Problem Chronic fatigue R53.82 Active Assessment Encounter for surveillance of Z30.41 Active contraceptive pills Problem Hypothyroidism, unspecified type E03.9 Active Problem Abnormal laboratory test R89.9 Active Problem Vitamin D insufficiency E55.9 Active Problem Non-seasonal allergic rhinitis, J30.89 Active unspecified trigger Problem 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 Active Assessment Vitamin B12 deficiency E53.8 Active Assessment Vitamin D insufficiency E55.9 Active Problem Inattention R41.840 Active Assessment History of cold sores Z86.19 Active Problem History of cold sores Z86.19 Active Problem Vitamin B12 deficiency E53.8 Active Problem Daytime somnolence R40.0 Active Problem History of suicide attempt Z91.5 Active Assessment Hypothyroidism, unspecified type E03.9 Active Assessment Chronic fatigue R53.82 Active Assessment Seasonal allergies J30.2 Active Assessment Depression with anxiety F41.8 Active Problem Bipolar II disorder major F31.81 Active depressive with atypical features Problem Seasonal allergies J30.2 Active Assessment Bipolar II disorder major F31.81 Active depressive with atypical features Medications Medication Code Code Instructions Start End Status Dosage System Date Date Lamotrigine ND 15093374001 25 MG Orally May 16, Active 1 tablet Once a day 2019 Acyclovir ND 07020895053 400 MG Orally Active 1 tablet Three times a day Levothyroxine ND 18511075413 75 MCG Orally Inactive 1 tablet Sodium Once a day on an empty stomach in the morning Prozac [facility] 02241307465 10 MG Orally Active 1 capsule Once a day Taytulla [facility] 63376830974 1-20 MG-MCG(24) Active 1 capsule Orally Once a day Olanzapine [facility] 17330597787 2.5 MG Orally Inactive 1 tablet Once a day Synthroid [facility] 29302607496 125 MCG Orally Inactive 0.5 Once a day tablet on an empty stonach in the morning Fluoxetine HCl [facility] 37226687357 10 MG Orally Active 1 capsule Once a day Vyvanse [facility] 31538361895 50 MG Orally May 16, Active 1 capsule Once a day 2019 in the morning Abilify [facility] 40742296948 2 MG Orally Active 1 tablet Once a day Results No Known Results Summary Purpose eClinicalWorks Submission
--- OUTSIDE RECORDS SUMMARY | 2019-06-01 10:28 | XMS REPORT ---
[...] features Problem Seasonal allergies J30.2 Active Assessment Chronic fatigue R53.82 Active Problem Depression with anxiety F41.8 Active Problem Chronic fatigue R53.82 Active Medications Medication Code Code Instructions Start End Date Status Dosage System Date Vyvanse ND 19483258522 60 MG Orally May 31, Active 1 capsule Once a day 2019 in the morning Vyvanse [facility] 04429181270 40 MG Orally Feb 24, Inactive 1 capsule Once a day 2018 in the morning Results No Known Results Summary Purpose eClinicalWorks Submission
[2019-06-01] MEDS ORDERED: KETOROLAC 30 MG/ML INJ ONE (10:37)
[2019-06-01] MEDS ORDERED: NA CHLORIDE 0.9% 1,000 ML ONE (10:37)
[2019-06-01 10:49] LABS: Absolute Lymphocytes (CBC) 1.5 K/uL (0.7-4.9); Basophils % 0.7 % (0-1.3); Hematocrit 38.7 % (36.0-45.0); Lymphocytes % 27.5 % (15.3-44.8); MPV 7.8 fL (7.6-11.3); RBC Red Blood Cell Count 4.82 M/uL (3.86-4.86)
[2019-06-01 10:54] LABS: Protime INR 1.19
[2019-06-01 11:10] LABS: ALT/SGPT 25 U/L (12-78); AST/SGOT 16 U/L (15-37); Albumin 3.6 g/dL (3.4-5.0); Alkaline Phosphatase 53 U/L (45-117); BUN Blood Urea Nitrogen 10 mg/dL (7-18); Bicarbonate 25 mmol/L (21-32); Bilirubin Direct 0.1 mg/dL (0-0.2); Bilirubin Total 0.5 mg/dL (0.2-1.0); Glucose Level 83 mg/dL (74-106); Protein, Total 7.1 g/dL (6.4-8.2); Sodium Level 140 mmol/L (136-145)
[2019-06-01 11:48] LABS: Urine Blood TRACE (NEG); Urine Glucose NEGATIVE (NEG); Urine Protein NEGATIVE (NEG); Urine Specific Gravity 1.015 (1.005-1.030); Urine pH 7.5 (5.0-7.0)
[2019-06-01 11:50] LABS: Barbiturates NEGATIVE (NEGATIVE); Benzodiazepines NEGATIVE (NEGATIVE); Cocaine NEGATIVE (NEGATIVE); METHAMPHETAM POSITIVE (NEGATIVE); Methadone NEGATIVE (NEGATIVE); Opiates NEGATIVE (NEGATIVE); Phencyclidine NEGATIVE (NEGATIVE); THC Cannibis NEGATIVE (NEGATIVE)
--- NOTE | 2019-06-01 12:05 | EDPHYS ---
Physician Documentation [facility] Name: Brenda Moody Age: 24 yrs Sex: Female : 1995 Arrival Date: 06/01/2019 Time: 10: Bed 5 Private MD: ED Physician Ulises Hussein HPI: 06/01 10:32 This 24 yrs old Female presents to ER via EMS with complaints of Lethargy. cp 10:32 fatigue, joint pain and body aches. cp 10:32 Onset: The symptoms/episode began/occurred 3 day(s) ago. cp 10:32 Severity of symptoms: in the emergency department the symptoms are unchanged despite cp home interventions. Historical: - Allergies: 10:31 No Known Allergies; hb - Home Meds: 10:31 Abilify 2 mg Oral tab daily [Active]; acyclovir 400 mg Oral tab 1 tab three times a day hb [Active]; Fluoxetine Oral [Active]; levothyroxine 50 mcg tab 1 tab once daily [Active]; olanzapine Oral [Active]; Taytulla ( Control Pills) [Active]; Vyvanse 60 mg Oral cap 1 cap once daily [Active]; - PMHx: 10:31 Hypothyroidism; Endometrosis; Bipolar disorder; hb - Immunization history:: Adult Immunizations up to date. - Social history:: Smoking status: Patient denies any tobacco usage or history of. - Ebola Screening: : No symptoms or risks identified at this time. ROS: 10:40 Constitutional: Positive for fatigue, Negative for chills, fever, poor PO intake. cp 10:40 Eyes: Negative for injury, pain, redness, and discharge. cp 10:40 ENT: Negative for drainage from ear(s), ear pain, sore throat, difficulty swallowing, difficulty handling secretions. 10:40 Cardiovascular: Negative for chest pain, edema, palpitations. 10:40 Respiratory: Negative for cough, shortness of breath, wheezing. 10:40 Abdomen/GI: Negative for abdominal pain, nausea, vomiting, and diarrhea, anorexia. 10:40 : Negative for urinary symptoms. 10:40 Skin: Negative for cellulitis, rash. 10:40 Neuro: Positive for weakness, Negative for altered mental status, dizziness, headache. 10:40 All other systems are negative. Exam: 10:45 Constitutional: The patient appears in no acute distress, alert, awake, cp non-diaphoretic, non-toxic, well developed, well nourished. 10:45 Head/Face: Normocephalic, atraumatic. cp 10:45 Eyes: Periorbital structures: appear normal, Pupils: equal, round, and reactive to cp light and accomodation, Extraocular movements: intact throughout, Conjunctiva: normal, no exudate, no injection, Sclera: no appreciated abnormality, Lids and lashes: appear normal, bilaterally. 10:45 ENT: External ear(s): are unremarkable, Ear canal(s): are normal, clear, TM's: cp dullness, bilaterally, Nose: is normal, Mouth: Lips: moist, Oral mucosa: pink and intact, moist, Posterior pharynx: Airway: no evidence of obstruction, patent, erythema, is not appreciated, exudate, is not appreciated. 10:45 Neck: ROM/movement: is normal, is supple, no meningismus, no nuchal rigidity, Lymph nodes: no appreciated lymphadenopathy. 10:45 Chest/axilla: Inspection: normal, Palpation: crepitus, is not appreciated, tenderness, that is moderate, of the anterior aspect of right upper chest and anterior aspect of left upper chest. 10:45 Cardiovascular: Rate: normal, Rhythm: regular, Heart sounds: murmur, not appreciated, rub, not appreciated, gallop, not appreciated, JVD: is not appreciated. 10:45 Respiratory: the patient does not display signs of respiratory distress, Respirations: normal, no use of accessory muscles, no retractions, no splinting, no tachypnea, labored breathing, is not present, Breath sounds: are clear throughout, no decreased breath sounds, no stridor, no wheezing. 10:45 Abdomen/GI: Inspection: abdomen appears normal, Bowel sounds: active, all quadrants, Palpation: abdomen is soft and non-tender, in all quadrants, rebound tenderness, is not appreciated, voluntary guarding, is not appreciated, involuntary guarding, is not appreciated. 10:45 Skin: cellulitis, is not appreciated, no rash present. 10:45 Neuro: Orientation: to person, place \T\ time. Mentation: is normal, Motor: moves all fours, general weakness without focal deficits, Sensation: no obvious gross deficits. 11:11 ECG was reviewed by the Attending Physician. Vital Signs: 10:31 BP 127 / 89; Pulse 95; Resp 16; Temp 97.9; Pulse Ox 100% on R/A; Weight 58.97 kg; hb Height 5 ft. 5 in. (165.10 cm); Pain 0/10; 10:31 Body Mass Index 21.63 (58.97 kg, 165.10 cm) hb MDM: 10:32 Patient medically screened. 11:50 Data reviewed: vital signs, nurses notes, lab test result(s), EKG. 11:50 Test interpretation: by ED physician or midlevel provider: ECG. cp 11:50 ED course: Patient found to have left ED without notifying staff and prior to cp reevaluation and discussion of labs, EKG. 06/01 10:31 Order name: Acetaminophen; Complete Time: 11:12 cp 06/01 11:12 Interpretation: Within normal limits. 06/01 10:31 Order name: Basic Metabolic Panel; Complete Time: 11:12 cp 06/01 11:12 Interpretation: Normal except: CL 108; GFR 80; CA 8.2. cp 06/01 10:31 Order name: CBC with Diff; Complete Time: 11:12 cp 06/01 11:13 Interpretation: Normal except: MCH 26.4. cp 06/01 10:31 Order name: ETOH Level; Complete Time: 11:12 cp 06/01 11:13 Interpretation: Within normal limits. cp 06/01 10:31 Order name: Hepatic Function; Complete Time: 11:12 cp 06/01 11:45 Interpretation: Normal except: A/G 1.0. cp 06/01 10:31 Order name: PT-INR; Complete Time: 11:12 cp 06/01 10:31 Order name: Ptt, Activated; Complete Time: 11:12 cp 06/01 10:31 Order name: Salicylate; Complete Time: 11:44 cp 06/01 11:44 Interpretation: Within normal limits. 06/01 10:31 Order name: Urine Drug Screen cp 06/01 11:37 Order name: Urine Dipstick--Ancillary (enter results) em1 06/01 11:37 Order name: Urine --Ancillary (enter results) em1 06/01 10:31 Order name: Urine Test (obtain specimen); Complete Time: 11:15 06/01 10:31 Order name: EKG; Complete Time: 10:32 cp 06/01 10:31 Order name: EKG - Nurse/Tech; Complete Time: 11:15 cp 06/01 10:31 Order name: IV Saline Lock; Complete Time: 10:34 cp 06/01 10:31 Order name: Labs collected and sent; Complete Time: 10:46 cp 06/01 10:31 Order name: Urine Dipstick-Ancillary (obtain specimen); Complete Time: 11:15 cp EC:11 Rate is 89 beats/min. Rhythm is regular. [place] interval is normal. QRS interval is normal. cp QT interval is normal. Interpreted by me. Reviewed by me. Administered Medications: 10:40 Drug: NS 0.9% 1000 ml Route: IV; Rate: 1 bolus; Site: right antecubital; sg 11:15 Follow up: IV Status: Completed infusion; IV Intake: 1000ml em 11:13 Drug: TORadol - Ketorolac 15 mg Route: IVP; Site: right antecubital; em Disposition: 12:07 Co-signature as Attending Physician, Ulises Hussein MD. rn Disposition: 06/01/19 12:05 Patient left the facility after being seen by provider. - Patient left due to unknown. Signatures: Dispatcher [employer] Chaitanya Pires RN RN sg Munoz, Edgar, RN RN em Nieto, Roman, MD MD rn Page, Corey, PA PA cp Baxter, Heather, RN RN Corrections: (The following items were deleted from the chart) 11:12 11:12 Normal except: CL 108; GFR 80. cp cp 12:05/31 10:45 Constitutional: The patient appears in no acute distress, alert, awake, cp non-diaphoretic, non-toxic, well developed, well nourished, cp 06/01 12:05/31 10:45 Head/Face: Normocephalic, atraumatic. cp cp 06/01 12:05/31 10:45 Eyes: Periorbital structures: appear normal, Pupils: equal, round, and cp reactive to light and accomodation, Extraocular movements: intact throughout, Conjunctiva: normal, no exudate, no injection, Sclera: no appreciated abnormality, Lids and lashes: appear normal, bilaterally, cp 06/01 11:05/31 10:45 ENT: External ear(s): are unremarkable, Ear canal(s): are normal, clear, cp TM's: dullness, bilaterally, Nose: is normal, Mouth: Lips: moist, Oral mucosa: pink and intact, moist, Posterior pharynx: is normal, airway is patent, no erythema, no exudate, cp 06/01 11:05/31 10:45 Neck: ROM/movement: is normal, is supple, without pain, no range of motions cp limitations, no meningismus, no nuchal rigidity, Lymph nodes: no appreciated lymphadenopathy, cp 06/01 11:05/31 10:45 Chest/axilla: Inspection: normal, Palpation: is normal, no crepitus, no cp tenderness, cp 06/01 11:05/31 10:45 Cardiovascular: Rate: normal, Rhythm: regular, cp cp 06/01 11:05/31 10:45 Respiratory: the patient does not display signs of respiratory distress, cp Respirations: normal, no use of accessory muscles, no retractions, no splinting, no tachypnea, labored breathing, is not present, Breath sounds: are clear throughout, no decreased breath sounds, no stridor, no wheezing, cp 06/01 11:05/31 10:45 Abdomen/GI: Inspection: abdomen appears normal, Palpation: abdomen is soft cp and non-tender, in all quadrants, cp 06/01 11:05/31 10:45 Skin: cellulitis, is not appreciated, no rash present. cp cp 06/01 11:05/31 10:45 Neuro: Orientation: to person, place \T\ time. Mentation: is normal, Motor: cp moves all fours, general weakness without focal deficits, Sensation: no obvious gross deficits, cp
--- NOTE | 2019-06-01 12:05 | ER ---
Nurse's Notes [facility] Name: Brenda Moody Age: 24 yrs Sex: Female : 1995 Arrival Date: 06/01/2019 Time: : Bed 5 Private MD: Diagnosis: Presentation: 06/01 10:24 Presenting complaint: EMS states: Mother called EMS because she stopped answering hb questions while on the phone, on scene pt was initially slow to answer or ignoring prompts, then reported feeling lethargic for 2-3 days. AOx4, NS 500 mls administered to 18g RAC SEC ACCOUNTANT. Transition of care: patient was not received from another setting of care. Onset of symptoms was June 01, 2019. Risk Assessment: Do you want to hurt yourself or someone else? Patient reports no desire to harm self or others. Initial Sepsis Screen: Does the patient meet any 2 criteria? No. Patient's initial sepsis screen is negative. Does the patient have a suspected source of infection? No. Patient's initial sepsis screen is negative. Care prior to arrival: IV initiated. 18 GA, in the right antecubital area. 10:24 Method Of Arrival: EMS: [facility] 10:24 Acuity: SHAHAB 3 hb Triage Assessment: 10:31 General: Appears in no apparent distress. Behavior is cooperative, flat. Pain: Denies hb pain. EENT: No signs and/or symptoms were reported regarding the EENT system. Neuro: Level of Consciousness is awake, alert, obeys commands, Oriented to person, place, time, situation. Cardiovascular: Capillary refill < 3 seconds Patient's skin is warm and dry. Respiratory: Airway is patent Respiratory effort is even, unlabored, Respiratory pattern is regular, symmetrical, Breath sounds are clear bilaterally. GI: No signs and/or symptoms were reported involving the gastrointestinal system. : No signs and/or symptoms were reported regarding the genitourinary system. Derm: Skin is pink, warm \T\ dry. Musculoskeletal: No signs and/or symptoms reported regarding the musculoskeletal system. Historical: - Allergies: : No Known Allergies; hb - Home Meds: : Abilify 2 mg Oral tab daily [Active]; acyclovir 400 mg Oral tab 1 tab three times a day hb [Active]; Fluoxetine Oral [Active]; levothyroxine 50 mcg tab 1 tab once daily [Active]; olanzapine Oral [Active]; Taytulla ( Control Pills) [Active]; Vyvanse 60 mg Oral cap 1 cap once daily [Active]; - PMHx: 10:31 Hypothyroidism; Endometrosis; Bipolar disorder; hb - Immunization history:: Adult Immunizations up to date. - Social history:: Smoking status: Patient denies any tobacco usage or history of. - Ebola Screening: : No symptoms or risks identified at this time. Screenin:32 Abuse screen: Denies threats or abuse. Denies injuries from another. Nutritional hb screening: No deficits noted. Tuberculosis screening: No symptoms or risk factors identified. Fall Risk None identified. Assessment: 10:32 General: see triage. hb Vital Signs: 10:31 BP 127 / 89; Pulse 95; Resp 16; Temp 97.9; Pulse Ox 100% on R/A; Weight 58.97 kg; hb Height 5 ft. 5 in. (165.10 cm); Pain 0/10; 10:31 Body Mass Index 21.63 (58.97 kg, 165.10 cm) hb ED Course: 10:23 Patient arrived in ED. hb 10:24 Randy Qiu PA is PHCP. cp 10:24 Ulises Hussein MD is Attending Physician. cp 10:27 Emmanuel Nation RN is Primary Nurse. em 10:28 Triage completed. hb 10:31 Arm band placed on. hb 10:31 Maintain EMS IV. Dressing intact. Good blood return noted. Site clean \T\ dry. Gauge \T\ sg site: 18 RAC. 10:32 Patient has correct armband on for positive identification. Bed in low position. Call hb light in reach. Side rails up X 1. 10:40 Initial lab(s) drawn, by me, sent to lab. sg 11:16 EKG done, by supply tech. reviewed by Randy RUCKER. at1 Administered Medications: 10:40 Drug: NS 0.9% 1000 ml Route: IV; Rate: 1 bolus; Site: right antecubital; sg 11:15 Follow up: IV Status: Completed infusion; IV Intake: 1000ml em 11:13 Drug: TORadol - Ketorolac 15 mg Route: IVP; Site: right antecubital; em Intake: 11:15 IV: 1000ml; Total: 1000ml. em Outcome: 12:05 Patient left the ED. hb Signatures: Chaitanya Anand, RN RN sg Emmanuel Nation, RN RN em Nano [employer]s, internet ecommerce specialist EKG Tat1 Randy Qiu PA PA cp Baxter, Heather, RN RN hb
[2019-06-01 12:23] VITALS: BP 127/89; TEMP 97.9; O2SAT 100
--- NOTE | 2019-06-02 08:37 | EKG ---
Test Date: 2019-06-01 Test Time: 11:11:31 Director Of Physical Education: JAYJAY MEASUREMENT RESULTS: Intervals: Rate: 89 FL: 134 QRSD: 80 QT: 378 QTc: 459 Ferron: P: 36 FL: 134 QRS: 68 T: 56 INTERPRETIVE STATEMENTS: Normal sinus rhythm Normal ECG Compared to ECG 04/11/2019 13:05:24 No significant changes Electronically Signed On 06-02-19 08:36:28 ROOFING LABORER by Boni Schneider
== END 2019-06-01 12:05 | disposition left against medical advice (07) ==
LOC: ER 10:22
DX: R53.1 Weakness (principal); E03.9 Hypothyroidism, unspecified; F31.9 Bipolar disorder, unspecified
CPT/HCPCS: 96361; 93005; 85025; 80048; 36415; 80320; 80329 ×2; 81025; 85610; 80076; 80307 ×8; 85730; 81003; 96374; 99284; J7030

== ENCOUNTER 2019-06-27 07:54 | Emergency (ER) | payer OTHER ==
--- OUTSIDE RECORDS SUMMARY | 2019-06-27 07:55 | XMS REPORT ---
[...] End Status Dosage System Date Date Levothyroxine [facility] 97158357974 75 MCG Orally Active 1 tablet Sodium Once a day on an empty stomach in the morning Acyclovir [facility] 68067940638 400 MG Orally Active 1 tablet Three times a day Taytulla [facility] 18427231770 1-20 MG-MCG(24) Active 1 capsule Orally Once a day Vyvanse [facility] 63551422320 40 MG Orally Feb 24, Active 1 capsule Once a day 2019 in the morning Olanzapine [facility] 80403310966 2.5 MG Orally Active 1 tablet Once a day Prozac [facility] 00253013264 10 MG Orally Active 1 capsule Once a day Abilify [facility] 88589692391 2 MG Orally Active 1 tablet Once a day Results No Known Results Summary Purpose eClinicalWorks Submission
--- OUTSIDE RECORDS SUMMARY | 2019-06-27 07:56 | XMS REPORT ---
[...] End Status Dosage System Date Date Levothyroxine [facility] 30659799127 75 MCG Orally Inactive 1 tablet Sodium Once a day on an empty stomach in the morning Prozac [facility] 31963717030 10 MG Orally Active 1 capsule Once a day Olanzapine ND 27205451335 2.5 MG Orally Active 1 tablet Once a day Vyvanse [facility] 26685822031 50 MG Orally Apr 12, Active 1 capsule Once a day 2019 in the morning Abilify [facility] 95460813520 2 MG Orally Active 1 tablet Once a day Acyclovir [facility] 41763191536 400 MG Orally Active 1 tablet Three times a day Synthroid [facility] 80515507841 125 MCG Orally Active 0.5 Once a day tablet on an empty stonach in the morning [facility] 77800831647 1-20 MG-MCG(24) Active 1 capsule Orally Once a day Results No Known Results Summary Purpose eClinicalWorks Submission
--- OUTSIDE RECORDS SUMMARY | 2019-06-27 07:56 | XMS REPORT ---
[...] End Status Dosage System Date Date Synthroid [facility][NOTE 3] 90944590063 125 MCG Orally Mar 16, Active 0.5 Once a day 2019 tablet on an empty stonach in the morning Levothyroxine ND 62699531090 50 MCG Orally Inactive 1 tablet Sodium Once a day on an empty stomach in the morning Results No Known Results Summary Purpose eClinicalWorks Submission
--- OUTSIDE RECORDS SUMMARY | 2019-06-27 07:56 | XMS REPORT ---
[...] End Status Dosage System Date Date Levothyroxine [facility] 80133664084 75 MCG Orally Inactive 1 tablet Sodium Once a day on an empty stomach in the morning Synthroid ND 17136606940 125 MCG Orally Inactive 0.5 Once a day tablet on an empty stonach in the morning Taytulla [facility] 43950881522 1-20 MG-MCG(24) Active 1 capsule Orally Once a day Acyclovir [facility] 41689110384 400 MG Orally Active 1 tablet Three times a day Prozac [facility] 03635502186 10 MG Orally Active 1 capsule Once a day Vyvanse [facility] 40598605156 50 MG Orally Active 1 capsule Once a day in the morning Olanzapine [facility] 47613587224 2.5 MG Orally Active 1 tablet Once a day Abilify [facility] 20313911904 2 MG Orally Active 1 tablet Once a day Results No Known Results Summary Purpose eClinicalWorks Submission
--- OUTSIDE RECORDS SUMMARY | 2019-06-27 07:56 | XMS REPORT ---
:1995 Author Organization eClinicalWorks Care Team Providers Name Role Phone [facility] Provider Role Unavailable Allergies No Known Allergies [...]
--- OUTSIDE RECORDS SUMMARY | 2019-06-27 07:56 | XMS REPORT ---
[...] End Status Dosage System Date Date Olanzapine [facility] 22898919928 2.5 MG Orally Active 1 tablet Once a day Prozac [facility] 39311439759 10 MG Orally Active 1 capsule Once a day Acyclovir ND 34805109581 400 MG Orally Active 1 tablet Three times a day Levothyroxine ND 17528278691 75 MCG Orally Active 1 tablet Sodium Once a day on an empty stomach in the morning Taytulla [facility] 31123594575 1-20 MG-MCG(24) Active 1 capsule Orally Once a day Brock [facility] 69349812038 50 MG Orally Mar 14, Active 1 capsule Once a day 2018 in the morning Josette [facility] 77217722865 2 MG Orally Active 1 tablet Once a day Results Name Result Date Reference Range Unit Abnormality Flag CBC With Differential/Platelet ----Lymphs 30 [id number] Not Estab. % ----Neutrophils 62 [id number] Not Estab. % ----Baso (Absolute) 0.0 [id number] 0.0-0.2 x10E3/uL ----Hemoglobin 12.2 89752955 11.1-15.9 g/dL ----Eos (Absolute) 0.1 [id number] 0.0-0.4 x10E3/uL ----Hematocrit 37.5 29929275 34.0-46.6 % ----Monocytes(Absolute) 0.4 [id number] 0.1-0.9 x10E3/uL ----MCV 80 85142200 79-97 fL ----Lymphs (Absolute) 1.7 [id number] 0.7-3.1 x10E3/uL ----MCH 26.0 [id number] 26.6-33.0 pg L ----Neutrophils 3.4 [id number] 1.4-7.0 x10E3/uL (Absolute) ----MCHC 32.5 84573317 31.5-35.7 g/dL ----Immature 0 [id number] Not Estab. % Granulocytes ----Basos 0 [id number] Not Estab. % ----RDW 13.9 85987588 12.3-15.4 % ----Immature Grans (Abs) 0.0 91041155 0.0-0.1 x10E3/uL ----Eos 1 [id number] Not Estab. % ----WBC 5.5 [id number] 3.4-10.8 x10E3/uL ----Platelets 377 [id number] 150-450 x10E3/uL ----RBC 4.69 76313332 3.77-5.28 x10E6/uL ----Monocytes 7 37671280 Not Estab. % Thyroid Panel With TSH ----TSH 0.027 [id number] 0.450-4.500 uIU/mL L ----Thyroxine (T4) 9.5 81059320 4.5-12.0 ug/dL ----T3 Uptake 25 20190314 24-39 % ----Free Thyroxine Index 2.4 [id number] 1.2-4.9 Comp. Metabolic Panel (14) (CMP) ----Sodium 141 [id number] 134-144 mmol/L ----BUN/Creatinine Ratio 16 [id number] 9-23 ----Chloride 103 53290490 96-106 mmol/L ----Potassium 4.1 79061727 3.5-5.2 mmol/L ----Calcium 9.1 95839814 8.7-10.2 mg/dL ----Protein, Total 6.8 08459518 6.0-8.5 g/dL ----Carbon Dioxide, 19 [id number] 20-29 mmol/L L Total ----A/G Ratio 1.5 72931425 1.2-2.2 ----eGFR If NonAfricn Am 126 [id number] >59 mL/min/1.73 ----Bilirubin, Total <0.2 37928517 0.0-1.2 mg/dL ----eGFR If Africn Am 145 [id number] >59 mL/min/1.73 ----Albumin 4.1 27599891 3.5-5.5 g/dL ----BUN 10 81334356 6-20 mg/dL ----Globulin, Total 2.7 09207108 1.5-4.5 g/dL ----Creatinine 0.64 28970646 0.57-1.00 mg/dL ----ALT (SGPT) 7 99997512 0-32 IU/L ----Glucose 143 99468970 65-99 mg/dL H ----Alkaline Phosphatase 37 90685681 39-117 IU/L L ----AST (SGOT) 16 [id number] 0-40 IU/L Summary Purpose eClinicalWorks Submission
--- OUTSIDE RECORDS SUMMARY | 2019-06-27 07:57 | XMS REPORT ---
[...] Active Assessment Chronic fatigue R53.82 Active Assessment Non-seasonal allergic rhinitis, J30.89 Active unspecified trigger Assessment Depression with anxiety F41.8 Active Problem Bipolar II disorder major F31.81 Active depressive with atypical features Problem Seasonal allergies J30.2 Active Assessment Bipolar II disorder major F31.81 Active depressive with atypical features Medications Medication Code Code Instructions Start End Status Dosage System Date [facility] 34942397518 2 MG Orally Active 1 tablet Once a day Taytulla [facility] 44936799317 1-20 MG-MCG(24) Active 1 capsule Orally Once a day Acyclovir [facility] 48629422165 400 MG Orally Active 1 tablet Three times a day Vyvanse [facility] 48633073320 60 MG Orally May 31, Active 1 capsule Once a day 2019 in the morning Olanzapine ND 68437035452 2.5 MG Orally Inactive 1 tablet Once a day Vyvanse [facility] 76077351737 60 MG Orally Jun 19, Active 1 capsule Once a day 2019 in the morning Venlafaxine HCl [facility] 47587151723 37.5 MG Orally Jun 08, Active 1 tablet ER Once a day 2019 with food Prozac [facility] 59213852798 10 MG Orally Inactive 1 capsule Once a day Lamotrigine [facility] 67630953616 25 MG Orally Active 1 tablet Once a day Results No Known Results Summary Purpose eClinicalWorks Submission
--- OUTSIDE RECORDS SUMMARY | 2019-06-27 07:57 | XMS REPORT ---
:1995 Author Organization eClinicalWorks Care Team Providers Name Role Phone Ronak [facility]ending [facility] Provider Role Unavailable Allergies No Known [...]
--- OUTSIDE RECORDS SUMMARY | 2019-06-27 07:57 | XMS REPORT ---
:1995 Author Organization eClinicalWorks Care Team Providers Name Role Phone Ronak [facility] Provider Role Unavailable Allergies No Known [...]
--- OUTSIDE RECORDS SUMMARY | 2019-06-27 07:57 | XMS REPORT ---
[...] features Problem Seasonal allergies J30.2 Active Assessment Pharyngitis, unspecified etiology J02.9 Active Problem Depression with anxiety F41.8 Active Problem Chronic fatigue R53.82 Active Medications Medication Code Code Instructions Start End Status Dosage System Date [facility] 52777119414 2 MG Orally Once Active 1 tablet a day Vyvanse [facility] 68655492824 60 MG Orally May 31, Active 1 capsule Once a day 2019 in the morning Venlafaxine HCl [facility] 85360638558 37.5 MG Orally Jun 08, Active 1 tablet ER Once a day 2019 with food Taytulla [facility] 88160389236 1-20 MG-MCG(24) Active 1 capsule Orally Once a day Amoxicillin ND 99782537806 500 MG Orally Jun 09, Jun 19, Active 1 capsule Twice a day 2019 2019 Acyclovir ND 93635755406 400 MG Orally Active 1 tablet Three times a day Results Name Result Date Reference Range Unit Abnormality Flag STREP A RAPID ----Result Negative [id number] Summary Purpose eClinicalWorks Submission
--- OUTSIDE RECORDS SUMMARY | 2019-06-27 07:57 | XMS REPORT ---
[...] History of suicide attempt Z91.5 Active Assessment Bipolar II disorder major F31.81 Active depressive with atypical features Assessment Depression with anxiety F41.8 Active Problem Bipolar II disorder major F31.81 Active depressive with atypical features Problem Seasonal allergies J30.2 Active Assessment Chronic fatigue R53.82 Active Problem Depression with anxiety F41.8 Active Problem Chronic fatigue R53.82 Active Medications Medication Code Code Instructions Start End Status Dosage System Date Date Acyclovir [facility] 60931894554 400 MG Orally Active 1 tablet Three times a day Lamotrigine [facility] 04966669748 25 MG Orally May 16, Inactive 1 tablet Once a day 2019 Venlafaxine HCl [facility] 62383430294 37.5 MG Orally Jun 08, Active 1 tablet ER Once a day 2019 with food Taytulla [facility] 93499059837 1-20 MG-MCG(24) Active 1 capsule Orally Once a day Abilify [facility] 20103324988 2 MG Orally Active 1 tablet Once a day Fluoxetine HCl ND 80038181148 10 MG Orally Inactive 1 capsule Once a day Prozac [facility] 79891099153 10 MG Orally Inactive 1 capsule Once a day Vyvanse [facility] 48662438470 50 MG Orally May 16, Inactive 1 capsule Once a day 2019 in the morning Vyvanse [facility] 47865595011 60 MG Orally May 31, Active 1 capsule Once a day 2019 in the morning Results No Known Results Summary Purpose eClinicalWorks Submission
--- OUTSIDE RECORDS SUMMARY | 2019-06-27 07:57 | XMS REPORT ---
[...] Date Status Dosage System Date Vyvanse ND 91650168186 60 MG Orally May 31, Active 1 capsule Once a day 2019 in the morning Vyvanse NDC 54152774566 40 MG Orally Feb 24, Inactive 1 capsule Once a day 2018 in the morning Results No Known Results Summary Purpose eClinicalWorks Submission
--- OUTSIDE RECORDS SUMMARY | 2019-06-27 07:57 | XMS REPORT ---
[...] Status Dosage System Date Date Lamotrigine ND 52037884175 25 MG Orally May 16, Active 1 tablet Once a day 2019 Acyclovir ND 21979217921 400 MG Orally Active 1 tablet Three times a day Levothyroxine ND 52266872804 75 MCG Orally Inactive 1 tablet Sodium Once a day on an empty stomach in the morning Prozac [facility] 14848987953 10 MG Orally Active 1 capsule Once a day Taytulla [facility] 75261522382 1-20 MG-MCG(24) Active 1 capsule Orally Once a day Olanzapine [facility] 22139797903 2.5 MG Orally Inactive 1 tablet Once a day Synthroid [facility] 52020910290 125 MCG Orally Inactive 0.5 Once a day tablet on an empty stonach in the morning Fluoxetine HCl [facility] 37436268401 10 MG Orally Active 1 capsule Once a day Vyvanse [facility] 13388901058 50 MG Orally May 16, Active 1 capsule Once a day 2019 in the morning Abilify [facility] 32428629496 2 MG Orally Active 1 tablet Once a day Results No Known Results Summary Purpose eClinicalWorks Submission
--- OUTSIDE RECORDS SUMMARY | 2019-06-27 07:58 | XMS REPORT ---
:1995 Author Organization eClinicalWorks Care Team Providers Name Role Phone Ronak [facility] Provider Role Unavailable Allergies No Known [...]
--- NOTE | 2019-06-27 08:23 | ER ---
Nurse's Notes [facility] Name: Brenda Moody Age: 24 yrs Sex: Female : 1995 Arrival Date: 06/27/2019 Time: 07:56 Bed 8 Private MD: Adriano Simons Diagnosis: Malaise and fatigue-secondary to medication change Presentation: 06/27 08:03 Presenting complaint: Patient states: c/o bodyaches, generalized weakness, fatigue. sv Reports being switched from Vyvanse to Adderall today, took 1 pill at 0500 and another at 0700. Transition of care: patient was not received from another setting of care. Onset of symptoms was June 27, 2019. Risk Assessment: Do you want to hurt yourself or someone else? Patient reports no desire to harm self or others. Initial Sepsis Screen: Does the patient meet any 2 criteria? No. Patient's initial sepsis screen is negative. Does the patient have a suspected source of infection? No. Patient's initial sepsis screen is negative. Care prior to arrival: None. 08:03 Method Of Arrival: Ambulatory sv 08:03 Acuity: SHAHAB 4 sv Triage Assessment: 08:07 General: Appears in no apparent distress. comfortable, slender, well developed, sv Behavior is cooperative, flat. General: Reports fatigue for >3 days. Pain: Denies pain. Neuro: Level of Consciousness is awake, alert, obeys commands, Oriented to person, place, time, situation, Moves all extremities. Full function Gait is steady, Speech is normal, Reports weakness. Respiratory: Airway is patent Respiratory effort is even, unlabored, Respiratory pattern is regular, symmetrical. Derm: Skin is intact, Skin is pink, warm \T\ dry. 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 - Coronavirus screen:: The patient has NOT traveled to [place] in the past 14 days. Proceed with normal triage process as indicated. The patient has NOT had contact with known/suspected case of Coronavirus? Proceed with normal triage procedures. - Social history:: Smoking status: Patient denies any tobacco usage or history of. Patient/guardian denies using alcohol. - Ebola Screening: : No symptoms or risks identified at this time. Screenin:07 Abuse screen: Denies threats or abuse. Denies injuries from another. Nutritional sv screening: No deficits noted. Tuberculosis screening: No symptoms or risk factors identified. Fall Risk None identified. Vital Signs: 08:06 BP 116 / 86; Pulse 103; Resp 14; Temp 98; Pulse Ox 100% ; Weight 56.7 kg; Height 5 ft. sv 3 in. (160.02 cm); 08:06 Body Mass Index 22.14 (56.70 kg, 160.02 cm) sv ED Course: 07:56 Patient arrived in ED. ag5 07:57 Adriano Simons DO is Private Physician. ag5 07:57 Nataly Wells FNP-C is [facility]. kb 07:57 Ulises Hussein MD is Attending Physician. kb 08:03 Catrina Workman, KUMAR is Primary Nurse. sv 08:05 Triage completed. sv 08:07 Arm band placed on Patient placed in an exam room, on a stretcher. sv 08:07 Patient has correct armband on for positive identification. Bed in low position. Call sv light in reach. Pulse ox on. NIBP on. Door closed. Head of bed elevated. 08:08 Nurse Practitioner and/or Physician Commutator Inspector to see patient. sv 08:43 No provider procedures requiring assistance completed. Patient did not have IV access sv during this emergency room visit. Administered Medications: No medications were administered Outcome: 08:20 Discharge ordered by . kb 08:43 Discharged to home ambulatory, Pt left before signing discharge paperwork. sv 08:43 Condition: stable 08:43 Patient left the ED. sv Signatures: Nataly Wells FNP-C FNP-Ckb Verde, Stephanie, KUMAR RN Simran Swift ag5 Corrections: (The following items were deleted from the chart) 08:06 08:03 Presenting complaint: Patient states: c/o bodyaches, generalized weakness, sv fatigue. Reports being switched from Vivance to Adderal today, took 1 pill at 0500 and another at 0700. sv
--- NOTE | 2019-06-27 08:24 | EDPHYS ---
Physician Documentation [facility] Name: Brenda Moody Age: 24 yrs Sex: Female : 1995 Arrival Date: 06/27/2019 Time: 07:56 Bed 8 Private MD: Adriano Simons ED Physician Ulises Hussein HPI: 06/27 09:14 This 24 yrs old Female presents to ER via Ambulatory with complaints of kb Headache, Body Aches. 09:14 Pt reports she was changed from vyvance to adderal for chronic fatigue. Today was the kb first day of the new medication and she is more fatigued than normal. . Onset: The symptoms/episode began/occurred today. Severity of symptoms: At their worst the symptoms were moderate in the emergency department the symptoms are unchanged. The patient has not experienced similar symptoms in the past. The patient has not recently seen a physician. 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 - Coronavirus screen:: The patient has NOT traveled to [place] in the past 14 days. Proceed with normal triage process as indicated. The patient has NOT had contact with known/suspected case of Coronavirus? Proceed with normal triage procedures. - Social history:: Smoking status: Patient denies any tobacco usage or history of. Patient/guardian denies using alcohol. - Ebola Screening: : No symptoms or risks identified at this time. ROS: 09:10 ENT: Negative for injury, pain, and discharge, Neck: Negative for injury, pain, and kb swelling, Cardiovascular: Negative for chest pain, palpitations, and edema, Respiratory: Negative for shortness of breath, cough, wheezing, and pleuritic chest pain, Abdomen/GI: Negative for abdominal pain, nausea, vomiting, diarrhea, and constipation, MS/Extremity: Negative for injury and deformity, Skin: Negative for injury, rash, and discoloration, Neuro: Negative for headache, weakness, numbness, tingling, and seizure. 09:10 Constitutional: Positive for body aches, fatigue, malaise. Exam: 09:13 Constitutional: This is a well developed, well nourished patient who is awake, alert, kb and in no acute distress. Head/Face: Normocephalic, atraumatic. Neck: Trachea midline, no thyromegaly or masses palpated, and no cervical lymphadenopathy. Supple, full range of motion without nuchal rigidity, or vertebral point tenderness. No Meningismus. Chest/axilla: Normal chest wall appearance and motion. Nontender with no deformity. No lesions are appreciated. Cardiovascular: Regular rate and rhythm with a normal S1 and S2. No gallops, murmurs, or rubs. Normal PMI, no JVD. No pulse deficits. Respiratory: Lungs have equal breath sounds bilaterally, clear to auscultation and percussion. No rales, rhonchi or wheezes noted. No increased work of breathing, no retractions or nasal flaring. Abdomen/GI: Soft, non-tender, with normal bowel sounds. No distension or tympany. No guarding or rebound. No evidence of tenderness throughout. Skin: Warm, dry with normal turgor. Normal color with no rashes, no lesions, and no evidence of cellulitis. MS/ Extremity: Pulses equal, no cyanosis. Neurovascular intact. Full, normal range of motion. Neuro: Awake and alert, GCS 15, oriented to person, place, time, and situation. Cranial nerves II-XII grossly intact. Motor strength 5/5 in all extremities. Sensory grossly intact. Cerebellar exam normal. Normal gait. 09:13 ENT: External ear(s): are unremarkable, Ear canal(s): are normal, TM's: fluid levels, bilaterally, Nose: is normal, Mouth: is normal, Posterior pharynx: erythema, that is moderate. Vital Signs: 08:06 BP 116 / 86; Pulse 103; Resp 14; Temp 98; Pulse Ox 100% ; Weight 56.7 kg; Height 5 ft. sv 3 in. (160.02 cm); 08:06 Body Mass Index 22.14 (56.70 kg, 160.02 cm) sv MDM: 07:58 Patient medically screened. kb 08:22 Data reviewed: vital signs, nurses notes. Data interpreted: Pulse oximetry: on room air kb is 100 %. Interpretation: normal. 08:22 Differential Diagnosis flu, medication reaction, fatigue. Counseling: I had a detailed kb discussion with the patient and/or guardian regarding: the historical points, exam findings, and any diagnostic results supporting the discharge/admit diagnosis, the need for outpatient follow up, a family practitioner, a psychiatrist, to return to the emergency department if symptoms worsen or persist or if there are any questions or concerns that arise at home. ED course: Strep and flu tests were offered due to symptoms and exam findings. Pt requests something to take the adderal out of her system. When I told pt there was not a way to take the adderal out of her system she said she would rather go home and sleep it off. does not want to be tested for flu or strep. Administered Medications: No medications were administered Disposition: 10:01 Co-signature as Attending Physician, Ulisse Hussein MD. rn Disposition: 06/27/19 08:20 Discharged to Home. Impression: Malaise and fatigue - secondary to medication change. - Condition is Stable. - Discharge Instructions: Fatigue, Weakness, Etvg-ed-[id number]. - Medication Reconciliation Form, Thank You Letter, Antibiotic Education, Prescription Opioid Use form. - Follow up: Emergency Department; When: As needed; Reason: Worsening of condition. Follow up: Private Physician; When: 2 - 3 days; Reason: Recheck today's complaints, Continuance of care, Re-evaluation by your physician. Signatures: Nataly Wells FNP-C FNP-Catrina Hinds, RN RN Ulises Godoy MD MD pattern scratcher: (The following items were deleted from the chart) 08:43 08:20 06/27/2019 08:20 Discharged to Home. Impression: Malaise and fatigue - secondary sv to medication change. Condition is Stable. Forms are Medication Reconciliation Form, Thank You Letter, Antibiotic Education, Prescription Opioid Use. Follow up: Emergency Department; When: As needed; Reason: Worsening of condition. Follow up: Private Physician; When: 2 - 3 days; Reason: Recheck today's complaints, Continuance of care, Re-evaluation by your physician. kb
== END 2019-06-27 08:43 | disposition home or self-care (01) ==
LOC: ER 07:54
DX: R53.83 Other fatigue (principal); T50.995A Adverse effect of other drugs, medicaments and biological substances, initial encounter
CPT/HCPCS: 99283

== ENCOUNTER 2019-10-06 08:02 | Emergency (ER) | payer OTHER ==
--- NOTE | 2019-10-06 08:59 | RAD REPORT ---
EXAM DESCRIPTION: CT - Head Brain Wo Cont - 10/06/2019 8:51 am CLINICAL HISTORY: Headache;Trauma, persistent headache, dizziness and blurred vision following traum a September 23 COMPARISON: Ct Stroke Brain Wo Cont dated 04/11/2019 TECHNIQUE: Axial 5 mm thick images of the head were obtained without IV contrast. All CT scans are performed using dose optimization technique as appropriate and may include automated exposure control or mA/KV adjustment according to patient size. FINDINGS: No intracranial hemorrhage, mass, edema or shift of mid-line structures. No acute infarcti on changes seen. No abnormal extra-axial fluid collections. Ventricles are normal. Mastoid air cells and visualized portions of the paranasal sinuses are clear. No acute bony findings. No identifiable changes from 2019 comparison study IMPRESSION: Negative non-contrast CT head examination.
--- OUTSIDE RECORDS SUMMARY | 2019-10-06 09:05 | XMS REPORT | Clinical Summary ---
:1995 Author Organization [facility] Address [address] [place] [address] Care Team Providers Name Role Phone Asked, No Pcp Primary Care Provider Unavailable Allergies No Known Allergies Medications Medication Sig Dispensed Refills Start Date End Date Status ibuprofen (ADVIL) Take 1 tablet 30 tablet 0 07/04/2019 020 600 MG tablet (600 mg total) by mouth every 8 (eight) hours as needed for moderate pain for up to 30 days. diazePAM (VALIUM) 2 Take 1 tablet (2 12 tablet 0 07/04/2019 MG tablet mg total) by mouth every 6 (six) hours as needed for muscle spasms for up to 3 days. Active Problems Not on file Encounters Date Type Specialty Care Team Description 07/03/2019 - Emergency Emergency Medicine José Antonio Oliveira Acute nec k pain (Primary Dx); 07/04/2019 MD Todd Pain in thoraci c spine; Blunt trauma; Neck sprain, in itial encounter; Sprain of upper back, initial encounter after 10/05/2018 Social History Tobacco Use Types Packs/Day Years Used Date Never Smoker Smokeless Tobacco: Never Used Alcohol Use Drinks/Week oz/Week Comments Never Alcohol Habits Answer Date Recorded How often do you have a drink containing alcohol? Never 07/03/2019 How many drinks containing alcohol do you have on a typical Not asked day when you are drinking? How often do you have six or more drinks on one occasion? No t asked Sex Assigned at Date Recorded Not on file Job Start Date Occupation Industry Not on file Not on file Not on file Travel History Travel Start Travel End No recent travel history available. 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 Pulse 86 07/04/2019 1:15 AM [employer] REPORT [employer]ICE SALES AGENT Temperature 36.8 C (98.3 F) 07/03/2019 7:06 PM FIN[employer]CIAL REPORT SERVICE SALES AGENT Respiratory Rate 16 07/04/2019 1:15 AM FINANCIAL REPORT SERVICE SALES AGENT Oxygen Saturation 98% 07/04/2019 1:15 AM FINANCIAL REPORT SERVICE SALES AGENT Inhaled Oxygen Concentration - - Weight 59 kg (130 lb) 07/03/2019 7:04 PM FINANCIAL REPORT SERVICE SALES AGENT Height 160 cm (5' 3") 07/03/2019 7:04 PM FINANCIAL REPORT SERVICE SALES AGENT Body Mass Index 23.03 07/03/2019 7:04 PM FINANCIAL REPORT [employer]ICE SALES AGENT Plan of Treatment Health Maintenance Due Date Last Done Comments CHLAMYDIA SCREENING 2011 CERVICAL CANCER SCREENING 2016 INFLUENZA VACCINE 12/09/2019 Procedures Procedure Name Priority Date/Time Associated Comments Diagnosis CT MAXILLOFACIAL WO STAT 07/04/2019 1:14 Resu lts for this CONTRAST AM [employer] SALES AGENT procedure are i n the results section. CT THORACIC SPINE WO STAT 07/04/2019 1:13 Res ults for this CONTRAST AM [employer]PORT [employer] SALES AGENT procedure are i n the results section. POC , URINE STAT 07/04/2019 12:28 Res ults for this AM [employer] REPORT [employer] SALES AGENT procedure are i n the results section. after 10/05/[address] Maxillofacial Wo Contrast (07/04/2019 1:14 AM FINANCIAL REPORT SERVICE SALES AGENT) Specimen Narrative Performed At EXAMINATION: CT MAXILLOFACIAL WO CONTR AST [facility] CLINICAL HISTORY: fall mg COMPARISON: None. TECHNIQUE: Maxillofacial CT with multiplanar reconstru ction performed using radiation dose reduction techniques. Technical factors are evaluated and adjusted to ensure appropriate moderatio n of exposure. Automated dose management technology i s applied to adjust radiation exposure while achieving a diagnos tic quality image. FINDINGS: Bones are intact with no evidence of acute fracture. O rbits are intact with no evidence of intraorbital hematoma. Paranasal s inuses and visualized mastoid air cells are well aerated. There i s slight rightward deviation of the nasal septum with a sma ll spur noted on the right. The cribriform plate appears intact. Mandible and temporomandibular joints are intact. No significan t soft tissue abnormality is appreciated. IMPRESSION: Unremarkable maxillofacial CT with no ac [place] abnormality. [facility]-[id number] Procedure Note Hm Interface, Radiology Results Incoming - 07/04/2019 1:49 AM FINANCIAL REPORT SERVICE SALES AGENT EXAMINATION: CT MAXILLOFACIAL WO CONTRAST CLINICAL HISTORY: fall mg COMPARISON: None. TECHNIQUE: Maxillofacial CT with multipl alexa reconstruction performed using radiation dose reduction techniques. Technical factors are evaluated and adjusted to ensure appropriate moderation of exposure. Automated dose management technology is applied to adjust radiation exposure while achie ving a diagnostic quality image. FINDINGS: Bones are intact with no evidence of acu te fracture. Orbits are intact with no evidence of intraorbital hematoma. Paranasal sinuses and visualized mastoid air cells are well aerated. There is slight rightward deviation of the nasal septum with a sma ll spur noted on the right. The cribriform plate appears intact. Mandible and temporomandibular joints are intact. No significant soft tissue abnormality is appreciated. IMPRESSION: Unremarkable maxillofacial CT with no ac [place] abnormality. [facility]-[id number] Performing Organization Address [facility] Phone Number [facility] [address] [place] [address] CT Thoracic Spine Wo Contrast (07/04/2019 1:13 AM FINANCIAL REPORT SERVICE SALES AGENT) Specimen Narrative Performed At EXAMINATION: CT THORACIC SPINE WO CONT RAST RADIANT CT IMAGING WAS PERFORMED WITH ITERATIVE RECONSTRUCTION TECHNIQUE AND/OR AUTOMATED EXPOSURE CONTROL TO REDUCE RAD IATION DOSE. CLINICAL HISTORY: fall pain COMPARISON: None. FINDINGS: There is no acute abnormality demonstrated. Specifica lly there is no fracture. There is no significant spondylosis or s tenosis. IMPRESSION: No significant abnormality. [facility]-[id number] Procedure Note Hm Interface, Radiology Results Incoming - 07/04/2019 1:22 AM FINANCIAL REPORT SERVICE SALES AGENT EXAMINATION: CT THORACIC SPINE WO CONTRAST CT IMAGING WAS PERFORMED WITH ITERATIVE RECONSTRUCTION TECHNIQUE AND/OR AUTOMATED EXPOSURE CONTROL TO REDUCE RADIATION DOSE. CLINICAL HISTORY: fall pain COMPARISON: None. FINDINGS: There is no acute abnormality demonstra fabi. Specifically there is no fracture. There is no significant spondylosis or s tenosis. IMPRESSION: No significant abnormality. [facility]-[id number] Performing Organization Address [facility]/[employer] Phone Number [employer] [address] [place] [address] POC , urine (07/04/2019 12:28 AM FINANCIAL REPORT SERVICE SALES AGENT) Pathologist Sig nature test urine, POC Negative Internal QC QC acceptable Specimen Urine after 10/05/2018 Advance Directives For more information, please contact: [phone] Type Date Recorded Patient Infirmary Attendant Explanati on Advance Directives, Living Will and Medical Power of Machine Crater
--- OUTSIDE RECORDS SUMMARY | 2019-10-06 09:07 | XMS REPORT ---
:1995 Author Organization eClinicalWorks Care Team Providers Name Role Phone Alisha Bender Provider Role Unavailable Allergies, Adverse Reactions, Alerts Substance Reaction Event Type N.K.D.A. Info Not Available Non Drug Allergy Problems Problem Type Condition Code Onset Dates Condition Statu s Problem History of cold sores Z86.19 Active Problem Vitamin B12 deficiency E53.8 Activ e Problem History of suicide attempt Z91.5 A ctive Problem Fever, unspecified R50.9 Active Assessment Fever, unspecified R50.9 Active Problem Contact with and (suspected) Z20.828 Active exposure to other viral communicable diseases Problem Cough R05 Active Problem 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 Active Problem Daytime somnolence R40.0 Active Problem Inattention R41.840 Active Problem Non-seasonal allergic rhinitis, J30.89 Active unspecified trigger Problem Chronic fatigue R53.82 Active Assessment Contact with and (suspected) Z20.828 Active exposure to other viral communicable diseases Assessment Cough R05 Active Problem Depression with anxiety F41.8 Acti ve Problem Bipolar II disorder major F31.81 Ac tive depressive with atypical features Problem Hypothyroidism, unspecified type E03.9 Active Problem Vitamin D insufficiency E55.9 Acti ve Problem Seasonal allergies J30.2 Active Problem Abnormal laboratory test R89.9 Act rupinder Medications Medication Code Code Instructions Start End Status Dosage System Date Date Acyclovir [facility] 09366599207 400 MG Orally Active 1 ta blet Three times a day Abilify [facility] 90092074295 2 MG Orally Active 1 tablet Once a day Taytulla [facility] 43954935248 1-20 MG-MCG(24) Active 1 c apsule Orally Once a day Lamotrigine ND 94496669588 25 MG Orally Active 1 t ablet Once a day Vyvanse [facility] 08088741802 60 MG Orally Active 1 capsu le Once a day in the morning Cyclobenzaprine [facility] 43140242875 5 MG Orally Jul 06July Active 1 tablet HCl Once a day 2019, at 2019 bedtime as needed Results No Known Results Summary Purpose eClinicalWorks Submission
--- OUTSIDE RECORDS SUMMARY | 2019-10-06 09:07 | XMS REPORT ---
:1995 Author Organization eClinicalWorks Care Team Providers Name Role Phone Abbie Simonsh Provider Role Unavailable Allergies No Known Allergies Problems Problem Type Condition Code Onset Dates Condition Statu s Problem Hypothyroidism, unspecified type E03.9 Active Problem Abnormal laboratory test R89.9 Act rupinder Problem Vitamin D insufficiency E55.9 Acti ve Problem Non-seasonal allergic rhinitis, J30.89 Active unspecified trigger Problem 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 Active Problem Inattention R41.840 Active Problem History of cold sores Z86.19 Active Problem Vitamin B12 deficiency E53.8 Activ e Problem Daytime somnolence R40.0 Active Problem History of suicide attempt Z91.5 A ctive Assessment Depression with anxiety F41.8 Acti ve Assessment Daytime somnolence R40.0 Active Problem Bipolar II disorder major F31.81 Ac tive depressive with atypical features Problem Seasonal allergies J30.2 Active Assessment Chronic fatigue R53.82 Active Problem Depression with anxiety F41.8 Acti ve Problem Chronic fatigue R53.82 Active Medications No Known Medications Results No Known Results Summary Purpose eClinicalWorks Submission
--- OUTSIDE RECORDS SUMMARY | 2019-10-06 09:07 | XMS REPORT ---
:1995 Author Organization eClinicalWorks Care Team Providers Name Role Phone Adriano Simons Provider Role Unavailable Allergies No Known Allergies Problems Problem Type Condition Code Onset Dates Condition Statu s Problem History of cold sores Z86.19 Active Problem Daytime somnolence R40.0 Active Problem History of suicide attempt Z91.5 A ctive Problem Fever, unspecified R50.9 Active Problem Contact with and (suspected) Z20.828 Active exposure to other viral communicable diseases Problem Abnormal menstrual cycle N92.6 Act rupinder Problem Non-seasonal allergic rhinitis, J30.89 Active unspecified trigger Problem 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 Active Problem Cough R05 Active Problem Inattention R41.840 Active Problem Seasonal allergies J30.2 Active Problem Depression with anxiety F41.8 Acti ve Assessment Abnormal menstrual cycle N92.6 Act rupinder Problem Hypothyroidism, unspecified type E03.9 Active Problem Vitamin D insufficiency E55.9 Acti ve Problem Chronic fatigue R53.82 Active Problem Abnormal laboratory test R89.9 Act rupinder Problem Bipolar II disorder major F31.81 Ac tive depressive with atypical features Problem Vitamin B12 deficiency E53.8 Activ e Medications No Known Medications Results No Known Results Summary Purpose eClinicalWorks Submission
--- OUTSIDE RECORDS SUMMARY | 2019-10-06 09:07 | XMS REPORT ---
:1995 Author Organization eClinicalWorks Care Team Providers Name Role Phone SimonsAdriano Provider Role Unavailable Allergies No Known Allergies [...] unspecified trigger Problem Chronic fatigue R53.82 Active Problem Depression with anxiety F41.8 Acti ve Problem Bipolar II disorder major F31.81 Ac tive depressive with atypical features Problem Hypothyroidism, unspecified type E03.9 Active Problem Vitamin D insufficiency E55.9 Acti ve Problem Seasonal allergies J30.2 Active Problem Abnormal laboratory test R89.9 Act rupinder Medications No Known Medications Results No Known Results Summary Purpose eClinicalWorks Submission
--- OUTSIDE RECORDS SUMMARY | 2019-10-06 09:07 | XMS REPORT ---
:1995 Author Organization [facility] t Address [address] [place] [address] Care Team Providers Name Role Phone Asked, Pcp Primary Care Physician Unavailable Todd Oliveira MD Attending Clinician Blaine VALDEZ Attending Clinician Payers Payer Name Policy Type Policy Number Effective Date Expiration Date Kika prieto AETNAAETNA PPO xxxxxxxxx 2018 [place] OPEN 00:00:00 [employer] CHOICExxxxxxxx-Present PPO Problems Condition Condition Condition Status Onset Resolution Last Treating Co mments Source Name Details Category Date Date Treatment Clinician Date Chronic Chronic Problem Active [facility] Bipolar II Bipolar II Problem Active [facility] disorder disorder [facility] - major major Memoria depressive 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 Clinic s Vitamin D Vitamin D Problem Active [facility] insufficie insufficie [place] kes - ncy ncy [facility]ics Abnormal Abnormal Problem Active [facility] laboratory laboratory [place] k[facility] - test test [facility] Depression Depression Problem Active [facility] with with [facility] - anxiety anxiety [facility] l [facility] Seasonal Seasonal Problem Active [facility] allergies allergies [facility] - [facility] Hypothyroi Hypothyroi Problem Active [facility] dism, dism, [facility] - unspecifie unspecifie Me moria d type d type l [facility] Clinics History of History of Problem Active [facility] suicide suicide [facility] - attempt attempt [facility] l [facility] Vitamin Vitamin Problem Active [facility] B12 B12 [facility] - deficiency deficiency Me moria l [facility] Clinics History of History of Problem Active [facility] cold sores cold sores [place] kes - Memoria l [facility] ent Clinics Repetitive Repetitive Problem Active [facility] intrusions intrusions [place] kes - of sleep of sleep Memori a l [facility] ent Clinics Daytime Daytime Problem Active [facility] somnolence somnolence [facility] kes - Memoria l [facility] ent Clinics Inattentio Inattentio Problem Active [facility] n n [facility] Clinics Non-season Non-season Problem Active [facility] al al [facility] - allergic allergic Memori a rhinitis, rhinitis, l unspecifie unspecifie Ou tpati d trigger d trigger ent Clinics Fever, Fever, Problem Active [facility] unspecifie unspecifie [place] kes - d d Memoria l [facility] ent Clinics Contact Contact Problem Active [facility] with and with and [facility] - (suspected (suspected Me moria ) exposure ) exposure l to other to other Outpat i viral viral ent communicab communicab Cl inics le le diseases diseases Cough Cough Problem Active [facility] ent Clinics Abnormal Abnormal Problem Active [facility] menstrual menstrual Luke s - cycle cycle Memoria l [facility] ent Clinics Allergic Allergic Problem Active [facility] reaction reaction [facility] - to insect to insect Saulo radha bite bite l [facility] ent [facility] Allergies, Adverse Reactions, Alerts This patient has no known allergies or adverse reactions. Social History Social Habit Start Date Stop Date Quantity Comments Source History [facility] Alcohol Std Drinks History [facility] Alcohol Binge Sex Assigned At [facility] ethodist Alcohol intake 2019-07-03 2019-07-03 [facility] thodist 00:00:00 00:00:00 non-drinker (finding) History [facility] 2019-07-03 2019-07-03 [facility] [place] [facility] Alcohol Frequency 00:00:00 00:00:00 Smoking Status Start Date Stop Date Source Never smoker [facility] Medications Ordered Filled Start Stop Current Ordering Indication Dosage Frequency Signature Comments Components Source Medication Medication Date Date Medication? Clinician (SIG) Name Name Triamcinolo Triamcinolo Yes Adriano [address] [facility] ne ne 5-11 Simons applicatio [facility] - Acetonide Acetonide 00:00: n Mem oria 00 l [facility] ent Clinics ibuprofen 2020-0 2020- No 600mg Q8H Take 1 [place] (ADVIL) 600 07-04 tablet Metho di MG tablet 00:00: 23:59 ([address] 00 :00 total) by mouth every 8 (eight) hours as needed for moderate pain for up to 30 days. diazePAM 2mg Q6H Take 1 Antoniato n (VALIUM) 2 07-04 tablet (2 Met hodi MG tablet 00:00: 23:59 mg total) st 00 :00 by mouth every 6 (six) hours as needed for muscle spasms for up to 3 days. Acyclovir Acyclovir Yes Adriano [address] [facility] ent Clinics Abilify Abilify Yes Adriano [address] [facility] ent Clinics Lamotrigine Lamotrigine Yes Adriano [address] [facility] ent Clinics Vyvanse Vyvanse Yes Adriano [address] [facility]ics Taytulla Taytulla Yes Adriano [address] [facility] ent Clinics Vital Signs Vital Name Observation Time Observation Value Comments Source Systolic blood 2019-07-04 01:15:00 105 mm[Hg] Bobby n [employer] pressure Diastolic blood 2019-07-04 01:15:00 67 mm[Hg] Renee on [employer] pressure Heart rate 2019-07-04 01:15:00 86 /min Reyes Anderson Respiratory rate 2019-07-04 01:15:00 16 /min Antonia abarham [employer] Oxygen saturation in 2019-07-04 01:15:00 98 /min Reyes Anderson Arterial blood by Pulse oximetry Body temperature 2019-07-03 19:06:09 36.83 Laura Antonia ton [employer] Body height 2019-07-03 19:04:00 160 cm Reyes Anderson Body weight 2019-07-03 19:04:00 58.968 kg Reyes Anderson BMI 2019-07-03 19:04:00 23.03 kg/m2 Reyes Anderson Procedures Procedure Date / Time Performed Performing Clinician Sour e CT MAXILLOFACIAL WO 2019-07-04 01:14:00 Briese, Beau Todd [place] [facility] CONTRAST CT THORACIC SPINE WO 2019-07-04 01:13:49 José Antonio Oliveira on [employer] CONTRAST POC , URINE 2019-07-04 00:28:00 José Antonio Oliveira on [employer] Plan of Care Planned Activity Planned Date Details Comments Source Future Scheduled 2019-12-09 INFLUENZA VACCINE [place] [facility] Test 00:00:00 [code = INFLUENZA VACCINE] Future Scheduled 2016 Screening for [facility] thodist Test 00:00:00 malignant neoplasm of cervix (procedure) [code = 192272219] Future Scheduled 2011 CHLAMYDIA SCREENING [place] [facility] Test 00:00:00 [code = CHLAMYDIA SCREENING] Encounters Start End Encounter Admission Attending Care Care Encounter Source Date/Time Date/Time Type Type Clinicians Facility Department ID 2019-09-25 2019-09-25 [facility] [id number] [facility] [address] 11:24:00 11:24:00 t [employer] [facility] Family Medicine l Medicine Outpati ent Clinics 2019-09-18 2019-09-18 [facility] [id number] 13:00:00 13:00:00 t [employer] [facility] Family Medicine l Medicine Outpati ent Clinics 2019-09-05 2019-09-05 [facility] [id number] 14:53:00 14:53:00 t [employer] [facility] Family Medicine l Medicine Outpati ent Clinics 2019-08-15 2019-08-15 [facility] [id number] 11:03:00 11:03:00 t [employer] [facility] Family Medicine l Medicine Outpati ent Clinics 2019-08-03 2019-08-03 [facility] [id number] 11:13:00 11:13:00 t [employer] [facility] Medicine l Medicine Outpati ent Clinics 2019-08-01 2019-08-01 [facility] [id number] 11:00:00 11:00:00 t [facility] [employer] [facility] Family Medicine l Medicine Outpati ent Clinics 2019-08-01 2019-08-01 [facility] [id number] 08:16:00 08:16:00 t [employer] [facility] Medicine l Medicine Outpati ent Clinics 2019-07-13 2019-07-13 [facility] [id number] 16:32:00 16:32:00 t [employer] [facility] l Medicine Outpati ent Clinics 2019-07-06 2019-07-06 [facility] [id number] 13:00:00 13:00:00 t [employer] [facility] l Medicine Outpati ent Clinics 2019-07-03 2019-07-04 Emergency [facility] [id number] [place] [address] 00:00:00 00:00:[address] BEAU [address] 2019-07-03 2019-07-03 [facility] [id number] 11:42:00 11:42:00 t [employer] [facility] Medicine Outpati ent Clinics 2019-06-27 2019-06-27 [facility] [id number] 10:00:00 10:00:00 t [employer] [facility] l Medicine Outpati ent Clinics 2019-06-21 2019-06-21 [facility] [id number] 10:19:00 10:19:00 t [employer] [facility] l Medicine Outpati ent Clinics 2019-06-20 2019-06-20 [facility] [id number] 10:22:00 10:22:00 t [employer] [facility] Medicine l Medicine Outpati ent Clinics 2019-06-19 2019-06-19 [facility] [id number] 16:00:00 16:00:00 t [employer] [facility] l Medicine Outpati ent Clinics 2019-06-09 2019-06-09 [facility] [id number] 10:45:00 10:45:00 t [employer] [facility] Medicine l Medicine Outpati ent Clinics 2019-06-08 2019-06-08 [facility] [id number] 15:31:00 15:31:00 t Moberly [employer] - [facility] Medicine l Medicine Outpati ent Clinics 2019-05-24 2019-05-24 [facility] [id number] 08:28:00 08:28:00 t [employer]oberly [employer] - Drive [facility] Medicine l Medicine Outpati ent Clinics 2019-05-19 2019-05-19 [facility] [id number] 16:07:00 16:07:00 t Moberly [employer] - Drive [facility] Medicine l Medicine Outpati ent Clinics 2019-05-19 2019-05-19 [facility] [id number] 10:34:00 10:34:00 t Moberly [employer] s - Drive [facility] Medicine l Medicine Outpati ent Clinics 2019-05-16 2019-05-16 [facility] [id number] 16:30:00 16:30:00 t [employer] s - Drive [facility] Medicine l Medicine Outpati ent Clinics 2019-04-26 2019-04-26 [facility] [id number] 08:11:00 08:11:00 t [employer] - Drive [facility] Medicine l Medicine Outpati ent Clinics 2019-04-25 2019-04-25 [facility] [id number] 10:00:00 10:00:00 t [employer] [facility] Medicine l Medicine Outpati ent Clinics 2019-04-14 2019-04-14 [facility] [id number] 09:47:00 09:47:00 t Moberly [employer] - Drive [facility] Medicine l Medicine Outpati ent Clinics 2019-04-12 2019-04-12 [facility] [id number] 16:30:00 16:30:00 t Moberly [employer] - Drive [facility] Medicine l Medicine Outpati ent Clinics 2019-03-15 2019-03-15 [facility] [id number] 11:45:00 11:45:00 t Moberly [employer] - Drive [facility] Medicine l Medicine Outpati ent Clinics 2019-03-14 2019-03-14 [facility] [id number] 16:30:00 16:30:00 t [employer] [facility] Medicine Outpati ent Clinics 2019-02-27 2019-02-27 Office Liv Valladares [id number] 13:53:45 14:23:45 Visit AMBULATOR [id number] 2019-02-24 2019-02-24 [facility] [id number] 09:30:00 09:30:00 t [employer] [facility] Medicine Outpati ent Clinics 2019-02-10 2019-02-10 [facility] [id number] 08:30:00 08:30:00 t [employer] [facility] Medicine Outpati ent Clinics 2019-02-09 2019-02-09 [facility] [id number] 11:48:00 11:48:00 t [employer] s - Drive [facility] Medicine Outpati ent Clinics 2019-02-08 2019-02-08 [facility] [id number] 09:30:00 09:30:00 t [employer] [facility] Medicine Outpati ent Clinics 2019-01-31 2019-01-31 [facility] [id number] 16:15:00 16:15:00 t [employer] [facility] Medicine Outpati ent Clinics 2019-01-17 2019-01-17 [facility] [id number] 11:15:00 11:15:00 t [employer] [facility] Medicine Outpati ent Clinics Results Test Description Test Time Test Results Result Source Comments Comments CT Maxillofacial 2019-06-11 Hm Interface, [place] Contrast 5 Radiology Results Method ist 01:46:21 07/04/2019 1:49 AM CSTEXAMINATION: CT MAXILLOFACIAL WO CONTRASTCLINICAL HISTORY: fall haCOMPARISON: None.TECHNIQUE: Maxillofacial CT with multiplanar reconstruction performed using radiation dose reduction techniques. Technical factors are evaluated and adjusted to ensure appropriate moderation of exposure. Automated dose management technology is applied to adjust radiation exposure while achieving a diagnostic quality image. FINDINGS:Bones are intact with no evidence of acute fracture. Orbits are intact with no evidence of intraorbital hematoma. Paranasal sinuses and visualized mastoid air cells are well aerated. There is slight rightward deviation of the nasal septum with a small spur noted on the right. The cribriform plate appears intact. Mandible and temporomandibular joints are intact. No significant soft tissue abnormality is appreciated.IMPRESSIO N:Unremarkable maxillofacial CT with no acute abnormality.[facility]-[id number] CT Thoracic Spine 2019-06-11 [facility], [place] ton [place] Contrast 5 Radiology Results Method ist 01:19:01 - 07/04/2019 1:22 AM CSTEXAMINATION: CT THORACIC SPINE WO CONTRASTCT IMAGING WAS PERFORMED WITH ITERATIVE RECONSTRUCTION TECHNIQUE AND/OR AUTOMATED EXPOSURE CONTROL TO REDUCE RADIATION DOSE.CLINICAL HISTORY: fall painCOMPARISON: None.FINDINGS: There is no acute abnormality demonstrated. Specifically there is no fracture.There is no significant spondylosis or stenosis.IMPRESSION:N o significant abnormality.[facility]-[id number] POC , urine 2019-07-04 00:28:00 Test Item Value Reference Range Interpretation Comme nts test urine, POC (test code = 0329693) Negative Internal QC (test code = 257) QC acceptable Reyes Anderson
--- OUTSIDE RECORDS SUMMARY | 2019-10-06 09:08 | XMS REPORT ---
:1995 Author Organization eClinicalWorks Care Team Providers Name Role Phone Ronak [facility] Provider Role Unavailable Allergies, Adverse Reactions, Alerts Substance Reaction Event Type N.K.D.A. 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 Active Problem Daytime somnolence R40.0 Active Problem Abnormal menstrual cycle N92.6 Act rupinder Assessment Mosquito bite, initial encounter W57.XXXA Active Problem Fever, unspecified R50.9 Active Assessment Allergic reaction to insect bite Z91.038 Active Problem Allergic reaction to insect bite Z91.038 Active Problem Inattention R41.840 Active Problem Non-seasonal allergic rhinitis, J30.89 Active unspecified trigger Problem Contact with and (suspected) Z20.828 Active exposure to other viral communicable diseases Problem Cough R05 Active Problem Depression with anxiety F41.8 Acti ve Problem Chronic fatigue R53.82 Active Problem Seasonal allergies J30.2 Active Problem Vitamin D insufficiency E55.9 Acti ve Problem Abnormal laboratory test R89.9 Act rupinedr Problem Bipolar II disorder major F31.81 Ac tive depressive with atypical features Problem Vitamin B12 deficiency E53.8 Activ e Problem Hypothyroidism, unspecified type E03.9 Active Problem History of cold sores 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 Active Medications Medication Code Code Instructions Start End Status Dosage System Date Date Abili [facility] 86402632670 2 MG Orally Active 1 tablet Once a day Lamotrigine ND 09175899044 25 MG Orally Active 1 t ablet Once a day Vyvanse [facility] 64343375812 70 MG Orally Active 1 capsu le in Once a day the morning Triamcinolone ND 17446373713 0.1 % September 17, Active 1 appl ication Acetonide Externally Two 2020 times a Week Taytulla [facility] 85331004395 1-20 MG-MCG(24) Active 1 c apsule Orally Once a day Acyclovir NDC 48784750364 400 MG Orally Active 1 ta blet Three times a day Results No Known Results Summary Purpose eClinicalWorks Submission
--- OUTSIDE RECORDS SUMMARY | 2019-10-06 09:08 | XMS REPORT ---
[...] Depression with anxiety F41.8 Acti ve Problem Hypothyroidism, unspecified type E03.9 Active Problem Vitamin D insufficiency E55.9 Acti ve Problem Chronic fatigue R53.82 Active Problem Abnormal laboratory test R89.9 Act rupinder Problem Bipolar II disorder major F31.81 Ac tive depressive with atypical features Problem Vitamin B12 deficiency E53.8 Activ e Medications No Known Medications Results No Known Results Summary Purpose eClinicalWorks Submission
--- OUTSIDE RECORDS SUMMARY | 2019-10-06 09:08 | XMS REPORT ---
[...] Abnormal menstrual cycle N92.6 Act rupinder Problem Fever, unspecified R50.9 Active Problem Allergic reaction to insect bite [...] ve Problem Abnormal laboratory test R89.9 Act rupinder Problem Bipolar II disorder major F31.81 Ac tive depressive with atypical features Problem Vitamin B12 deficiency E53.8 Activ e Problem Hypothyroidism, unspecified type E03.9 Active Problem History of cold sores Z86.19 Active Medications No Known Medications Results No Known Results Summary Purpose eClinicalWorks Submission
[2019-10-06 09:33] VITALS: BP 107/72; TEMP 98; O2SAT 99
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
== END 2019-10-06 09:26 | disposition home or self-care (01) ==
LOC: ER 08:02
DX: F07.81 Postconcussional syndrome (principal); W22.8XXS Striking against or struck by other objects, sequela; F31.9 Bipolar disorder, unspecified; E03.9 Hypothyroidism, unspecified
CPT/HCPCS: 70450; 99283

== ENCOUNTER 2019-10-06 14:37 | Emergency (ER) | payer OTHER ==
--- OUTSIDE RECORDS SUMMARY | 2019-10-06 14:39 | XMS REPORT | Clinical Summary ---
:1995 Author Organization [facility] Address [address] [place] [address] Care Team Providers Name Role Phone Asked, [...] Comments Blood Pressure 105/67 07/04/2019 1:15 AM AUTOMATIC SPREADER OPERATOR Pulse 86 07/04/2019 1:15 AM AUTOMATIC SPREADER OPERATOR Temperature 36.8 C (98.3 F) 07/03/2019 7:06 PM AUTOMATIC SPREADER OPERATOR Respiratory Rate 16 07/04/2019 1:15 AM AUTOMATIC SPREADER OPERATOR Oxygen Saturation 98% 07/04/2019 1:15 AM AUTOMATIC SPREADER OPERATOR Inhaled Oxygen Concentration - - Weight 59 kg (130 lb) 07/03/2019 7:04 PM AUTOMATIC SPREADER OPERATOR Height 160 cm (5' 3") 07/03/2019 7:04 PM AUTOMATIC SPREADER OPERATOR Body Mass Index 23.03 07/03/2019 7:04 PM AUTOMATIC SPREADER OPERATOR Plan of Treatment Health Maintenance Due Date Last Done Comments CHLAMYDIA SCREENING 2011 CERVICAL CANCER SCREENING 2016 INFLUENZA VACCINE 12/09/2019 Procedures Procedure Name Priority Date/Time Associated Comments Diagnosis CT MAXILLOFACIAL WO STAT 07/04/2019 1:14 Resu lts for this CONTRAST AM AUTOMATIC SPREADER OPERATOR procedure are i n the results section. CT THORACIC SPINE WO STAT 07/04/2019 1:13 Res ults for this CONTRAST AM AUTOMATIC SPREADER OPERATOR procedure are i n the results section. POC , URINE STAT 07/04/2019 12:28 Res ults for this AM AUTOMATIC SPREADER OPERATOR procedure are i n the results section. after 10/05/[address] Maxillofacial Wo Contrast (07/04/2019 1:14 AM AUTOMATIC SPREADER OPERATOR) Specimen Narrative Performed At EXAMINATION: CT MAXILLOFACIAL [...] IMPRESSION: Unremarkable maxillofacial CT with no ac wiyot abnormality. [facility]-[id number] Procedure Note Hm Interface, Radiology Results Incoming - 07/04/2019 1:49 AM AUTOMATIC SPREADER OPERATOR EXAMINATION: CT MAXILLOFACIAL WO CONTRAST CLINICAL HISTORY: [...] IMPRESSION: Unremarkable maxillofacial CT with no ac wiyot abnormality. [facility]-[id number] Performing Organization Address [facility] Phone Number [employer] [address] [place] [address] CT Thoracic Spine Wo Contrast (07/04/2019 1:13 AM AUTOMATIC SPREADER OPERATOR) Specimen Narrative Performed At EXAMINATION: CT THORACIC SPINE WO CONT RAST RADIANT CT IMAGING WAS PERFORMED WITH ITERATIVE RECONSTRUCTION TECHNIQUE AND/OR AUTOMATED EXPOSURE CONTROL TO REDUCE RAD IATION DOSE. CLINICAL HISTORY: fall pain COMPARISON: None. FINDINGS: There is no acute abnormality demonstrated. Specifica lly there is no fracture. There is no significant spondylosis or s tenosis. IMPRESSION: No significant abnormality. [facility]-[id number] Procedure Note Hm Interface, Radiology Results Incoming - 07/04/2019 1:22 AM AUTOMATIC SPREADER OPERATOR EXAMINATION: CT THORACIC SPINE WO CONTRAST CT IMAGING WAS PERFORMED WITH ITERATIVE RECONSTRUCTION TECHNIQUE AND/OR AUTOMATED EXPOSURE CONTROL TO REDUCE RADIATION DOSE. CLINICAL HISTORY: fall pain COMPARISON: None. FINDINGS: There is no acute abnormality demonstra fabi. Specifically there is no fracture. There is no significant spondylosis or s tenosis. IMPRESSION: No significant abnormality. [facility]-[id number] Performing Organization Address 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
--- OUTSIDE RECORDS SUMMARY | 2019-10-06 14:40 | XMS REPORT ---
:1995 Author Organization [facility] t Address [address] [place] [address] Care Team Providers Name Role Phone Asked, Pcp Primary Care Physician Unavailable Todd Oliveira MD Attending Clinician Blaine VALDEZ Attending Clinician Payers Payer Name Policy Type Policy Number Effective Date Expiration Date Kika prieto AETNAAETNA PPO xxxxxxxxx 2018 [place] OPEN 00:00:00 [facility] CHOICExxxxxxxx-Present PPO Problems Condition Condition Condition Status Onset Resolution Last Treating Co mments Source Name Details Category Date Date Treatment Clinician Date Chronic Chronic Problem Active [facility] Bipolar II Bipolar II Problem Active [facility] disorder disorder [facility] - major major Memoria depressive 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 Clinic s Vitamin D Vitamin D Problem Active [facility] insufficie insufficie [place] kes - ncy ncy [facility] Abnormal Abnormal Problem Active [facility] laboratory laboratory [place] [facility] - test test [facility] Depression Depression Problem Active [facility] with with [facility] - anxiety anxiety [facility] Seasonal Seasonal Problem Active [facility] allergies allergies [facility] - [facility] Hypothyroi Hypothyroi Problem Active [facility] dism, dism, [facility] - unspecifie unspecifie Me moria d type d type l [facility] History of History of Problem Active [facility] suicide suicide [facility] attempt attempt [facility] Vitamin Vitamin Problem Active [facility] B12 B12 [facility] - deficiency deficiency Me moria l [facility] History of History of Problem Active [facility] cold sores cold sores [facility] kes - [facility]oria l [facility]ics Repetitive Repetitive Problem Active [facility] intrusions intrusions [place] kes - of sleep of sleep Memori a l [facility] ent Clinics Daytime Daytime Problem Active [facility] somnolence somnolence [facility] k[facility] - [facility]oria l [facility]ics Inattentio Inattentio Problem Active [facility] n n [facility] Non-season Non-season Problem Active [facility] al al [facility] - allergic allergic Memori a rhinitis, rhinitis, l unspecifie unspecifie Ou tpati d trigger d trigger ent Clinics Fever, Fever, Problem Active [facility] unspecifie unspecifie [place] kes - d d Memoria l [facility] ent Clinics Contact Contact Problem Active [facility] with and with and [facility] - (suspected (suspected Me moria ) exposure ) exposure l to other to other Outpat i viral viral ent communicab communicab Cl inics le le diseases diseases Cough Cough Problem Active [facility] Abnormal Abnormal Problem Active [facility] menstrual menstrual Luke s - cycle cycle Memoria l [facility] ent [facility] Allergic Allergic Problem Active [facility] reaction reaction [facility] - to insect to insect Saulo radha bite bite l [facility] ent Clinics Allergies, Adverse Reactions, Alerts This patient has no known allergies or adverse reactions. Social History Social Habit Start Date Stop Date Quantity Comments Source History [facility] Meth odist Alcohol Std Drinks History [facility] Meth odist Alcohol Binge Sex Assigned At [facility] ethodist Alcohol intake 2019-07-03 2019-07-03 Lifetime [facility] thodist 00:00:00 00:00:00 non-drinker (finding) History [facility] 2019-07-03 2019-07-03 1 [place] Meth odist Alcohol Frequency 00:00:00 00:00:00 Smoking Status Start Date Stop Date Source Never smoker [place] Methodis Medications Ordered Filled Start Stop Current Ordering Indication Dosage Frequency Signature Comments Components Source Medication Medication Date Date Medication? Clinician (SIG) Name Name Triamcinolo Triamcinolo Yes Adriano [address] [facility] [facility] ne ne 5-11 [facility] applicatio [facility] - Acetonide Acetonide 00:00: n Mem oria 00 [facility] ibuprofen 2020-0 2020- No 600mg Q8H Take 1 [place] (ADVIL) 600 07-04-26 tablet Metho di MG tablet 00:00: 23:59 [...] [facility] Abilify Abilify Yes Adriano [address] [facility] Lamotrigine Lamotrigine Yes Adriano [address] [facility] Vyvanse Vyvanse Yes Adriano [address] [facility]ics Taytulla Taytulla Yes Adriano [address] [facility] [facility] Vital Signs Vital Name Observation Time Observation Value Comments Source Systolic blood 2019-07-04 01:15:00 105 mm[Hg] Bobby n Restorationist pressure Diastolic blood 2019-07-04 01:15:00 67 mm[Hg] Renee on Restorationist pressure Heart rate 2019-07-04 01:15:00 86 /min Reyes [place] Respiratory rate 2019-07-04 01:15:00 16 /min Antonia abraham [facility] Oxygen saturation in 2019-07-04 01:15:00 98 /min Reyes [place] Arterial blood by Pulse oximetry Body temperature 2019-07-03 19:06:09 36.83 Laura Antonia ton Restorationist Body height 2019-07-03 19:04:00 160 cm Reyes [place] Body weight 2019-07-03 19:04:00 58.968 kg Reyes [place] BMI 2019-07-03 19:04:00 23.03 kg/m2 Reyes [place] Procedures Procedure Date / Time Performed Performing Clinician Sourc e CT MAXILLOFACIAL WO 2019-07-04 01:14:00 Briese, Beau Todd [place] [facility]ist CONTRAST CT THORACIC SPINE WO 2019-07-04 01:13:49 José Antonio Oliveira on Restorationist CONTRAST POC , URINE 2019-07-04 00:28:00 José Antonio Oliveira on Restorationist Plan of Care Planned Activity Planned Date Details Comments Source Future Scheduled 2019-12-09 INFLUENZA VACCINE [place] [facility] Test 00:00:00 [code = INFLUENZA VACCINE] Future Scheduled 2016 Screening for [facility] thodist Test 00:00:00 malignant neoplasm of cervix (procedure) [code = 971401765] Future Scheduled 2011 CHLAMYDIA SCREENING [place] [facility] Test 00:00:00 [code = CHLAMYDIA SCREENING] Encounters Start End Encounter Admission Attending Care Care Encounter Source Date/Time Date/Time Type Type Clinicians Facility Department ID 2019-09-25 2019-09-25 [facility] [id number] [facility] 11:24:00 11:24:00 t [employer] [facility] Family [facility] l Medicine Outpati ent Clinics 2019-09-18 2019-09-18 [facility] [id number] 13:00:00 13:00:00 t [employer] [facility] Medicine l Medicine Outpati ent Clinics 2019-09-05 2019-09-05 [facility] [id number] 14:53:00 14:53:00 t [employer] [facility] l Medicine Outpati ent Clinics 2019-08-15 2019-08-15 [facility] [id number] 11:03:00 11:03:00 t [employer] [facility] l Medicine Outpati ent Clinics 2019-08-03 2019-08-03 [facility] [id number] 11:13:00 11:13:00 t [employer] [facility] Medicine l Medicine Outpati ent Clinics 2019-08-01 2019-08-01 [facility] [id number] 11:00:00 11:00:00 t [facility] [employer] [facility] Family Medicine l Medicine Outpati ent Clinics 2019-08-01 2019-08-01 [facility] [id number] 08:16:00 08:16:00 [place] [employer] [facility] Medicine l Medicine Outpati ent Clinics 2019-07-13 2019-07-13 [facility] [id number] 16:32:00 16:32:00 t [place] [employer] [facility] l Medicine Outpati ent Clinics 2019-07-06 2019-07-06 [facility] [id number] 13:00:00 13:00:00 t [employer] [facility] l Medicine Outpati ent Clinics 2019-07-03 2019-07-04 Emergency [facility] [id number] [place] [address] 00:00:00 00:00:[address] [address] 2019-07-03 2019-07-03 [facility] [id number] 11:42:00 11:42:00 t [employer] [facility] l Medicine Outpati ent Clinics 2019-06-27 2019-06-27 [facility] [id number] 10:00:00 10:00:00 t [employer] [facility] l Medicine Outpati ent Clinics 2019-06-21 2019-06-21 [facility] [id number] 10:19:00 10:19:00 t [employer] [facility] l Medicine Outpati ent Clinics 2019-06-20 2019-06-20 [facility] [id number] 10:22:00 10:22:00 t [place] [employer] [facility] Medicine l Medicine Outpati ent Clinics 2019-06-19 2019-06-19 [facility] [id number] 16:00:00 16:00:00 t [employer] [facility] l Medicine Outpati ent Clinics 2019-06-09 2019-06-09 [facility] [id number] 10:45:00 10:45:00 t [employer] [facility] Medicine l Medicine Outpati ent Clinics 2019-06-08 2019-06-08 [facility] [id number] 15:31:00 15:31:00 t [place] [employer] [place] [facility] - [facility] l Medicine Outpati ent Clinics 2019-05-24 2019-05-24 [facility] [id number] 08:28:00 08:28:00 t [place] [employer] - Drive [facility] Medicine l Medicine Outpati ent Clinics 2019-05-19 2019-05-19 [facility] [id number] 16:07:00 16:07:00 t [place] [employer] - Drive [facility] Medicine l Medicine Outpati ent Clinics 2019-05-19 2019-05-19 [facility] [id number] 10:34:00 10:34:00 t [place] [employer] s - Drive [facility] Medicine l Medicine Outpati ent Clinics 2019-05-16 2019-05-16 [facility] [id number] 16:30:00 16:30:00 t [place] [employer] s - Drive [facility] Medicine l Medicine Outpati ent Clinics 2019-04-26 2019-04-26 [facility] [id number] 08:11:00 08:11:00 t [place] [employer] - Drive [facility] Medicine l Medicine Outpati ent Clinics 2019-04-25 2019-04-25 [facility] [id number] 10:00:00 10:00:00 t [place] [employer] - [address] [facility] Medicine l Medicine Outpati ent Clinics 2019-04-14 2019-04-14 [facility] [id number] 09:47:00 09:47:00 t [place] [employer] - Drive [facility] Medicine l Medicine Outpati ent Clinics 2019-04-12 2019-04-12 [facility] [id number] 16:30:00 16:30:00 t [place] [employer] - Drive [facility] Medicine l Medicine Outpati ent Clinics 2019-03-15 2019-03-15 [facility] [id number] 11:45:00 11:45:00 t [place] [employer] - Drive [facility] Medicine l Medicine Outpati ent Clinics 2019-03-14 2019-03-14 [facility] [id number] 16:30:00 16:30:00 t [place] [employer] [facility] [facility] Medicine Outpati ent Clinics 2019-02-27 2019-02-27 Office Liv Valladares [id number] 13:53:45 14:23:45 Visit AMBULATOR [id number] 2019-02-24 2019-02-24 [facility] [id number] 09[facility]30:00 09:30:00 t [place] [employer] [facility] Medicine Outpati ent Clinics 2019-02-10 2019-02-10 [facility] [id number] 08:30:00 08:30:00 t [employer] - [employer] [facility] [facility] Medicine Outpati ent Clinics 2019-02-09 2019-02-09 [facility] [id number] 11:48:00 11:48:00 t [place] [employer] - Drive [facility] Medicine Outpati ent Clinics 2019-02-08 2019-02-08 [facility] [id number] 09:30:00 09:30:00 t [place] [employer] [facility] [facility] Medicine Outpati ent Clinics 2019-01-31 2019-01-31 [facility] [id number] 16:15:00 16:15:00 t [place] [employer] [facility] [facility] Medicine Outpati ent Clinics 2019-01-17 2019-01-17 [facility] [id number] 11:15:00 11:15:00 t [employer] - [employer] [facility] Medicine Outpati ent Clinics Results Test Description [...] appreciated.IMPRESSIO N:Unremarkable maxillofacial CT with no acute abnormality.[facility]-[id number] CT Thoracic Spine 2019-06-11 Antonia Lynn Wo Contrast 5 Radiology Results Method ist 01:19:01 - 07/04/2019 1:22 AM CSTEXAMINATION: CT THORACIC SPINE WO CONTRASTCT IMAGING WAS PERFORMED WITH ITERATIVE RECONSTRUCTION TECHNIQUE AND/OR AUTOMATED EXPOSURE CONTROL TO REDUCE RADIATION DOSE.CLINICAL HISTORY: fall painCOMPARISON: None.FINDINGS: There is no acute abnormality demonstrated. Specifically there is no fracture.There is no significant spondylosis or stenosis.IMPRESSION:N o significant abnormality.[facility]-[id number] POC , urine 2019-07-04 00:28:00 Test Item Value Reference Range Interpretation Comme nts test urine, POC (test code = 1804251) Negative Internal QC (test code = 257) QC acceptable Reyes Anderson
--- OUTSIDE RECORDS SUMMARY | 2019-10-06 14:40 | XMS REPORT ---
[...] End Status Dosage System Date Date Acyclovir [facility] 13798176723 400 MG Orally Active 1 ta blet Three times a day Abilify [facility] 78438455827 2 MG Orally Active 1 tablet Once a day Taytulla [facility] 53085917547 1-20 MG-MCG(24) Active 1 c apsule Orally Once a day Lamotrigine ND 05885151785 25 MG Orally Active 1 t ablet Once a day Vyvanse [facility] 96862223895 60 MG Orally Active 1 capsu le Once a day in the morning Cyclobenzaprine [facility] 06707463950 5 MG Orally Jul 06July Active 1 tablet HCl Once a day 2019, at 2019 bedtime as needed Results No Known Results Summary Purpose eClinicalWorks Submission
--- OUTSIDE RECORDS SUMMARY | 2019-10-06 14:41 | XMS REPORT ---
:1995 Author Organization [employer] Care Team Providers Name Role Phone Ronak [facility] Provider Role Unavailable Allergies, Adverse Reactions, Alerts [...] End Status Dosage System Date Date Abili [facility] 27083321924 2 MG Orally Active 1 tablet Once a day Lamotrigine ND 37814255142 25 MG Orally Active 1 t ablet Once a day Vyvanse [facility] 10655078404 70 MG Orally Active 1 capsu le in Once a day the morning Triamcinolone ND 58624645027 0.1 % September 17, Active 1 appl ication Acetonide Externally Two 2020 times a Week Taytulla [facility] 58215907411 1-20 MG-MCG(24) Active 1 c apsule Orally Once a day Acyclovir NDC 73312923555 400 MG Orally Active 1 ta blet Three times a day Results No Known Results Summary Purpose eClinicalWorks Submission
[2019-10-06] MEDS ORDERED: ONDANSETRON 4 MG (ODT) TAB ONE (15:02)
[2019-10-06 15:20] VITALS: BP 109/75; TEMP 97.9; O2SAT 100
--- NOTE | 2019-10-09 17:05 | EDPHYS ---
Physician Documentation [facility] Name: Brenda Moody Age: 24 yrs Sex: Female : 1995 Arrival Date: 10/06/2019 Time: 14:38 Bed 9 Private MD: Abbie Simonsh ED Physician Randy Smith HPI: 10/05 15:16 This 24 yrs old Female presents to ER via Ambulatory with complaints of jr8 Vomiting. 15:16 The patient presents to the emergency department with nausea, vomiting. Onset: The jr8 symptoms/episode began/occurred acutely, today. Possible causes: Recent diagnosis of concussion. The symptoms are aggravated by nothing. The symptoms are alleviated by nothing. Associated signs and symptoms: The patient has no apparent associated signs or symptoms. Severity of symptoms: At their worst the symptoms were mild in the emergency department the symptoms are unchanged. Patient seen earlier today. Had not been able to fill prescriptions yet because pharmacy power was out. Started to vomit after nap. Historical: - Allergies: 14:49 No Known Allergies; ph - PMHx: 14:49 Bipolar disorder; chronic fatigue; Endometrosis; Hypothyroidism; ph - PSHx: 14:49 laproscopy for endometriosis; ph - Immunization history:: Adult Immunizations unknown. - Social history:: Smoking status: Patient denies any tobacco usage or history of. ROS: 15:16 Eyes: Negative for injury, pain, redness, and discharge, ENT: Negative for injury, jr8 pain, and discharge, Neck: Negative for injury, pain, and swelling, Cardiovascular: Negative for chest pain, palpitations, and edema, Respiratory: Negative for shortness of breath, cough, wheezing, and pleuritic chest pain, Back: Negative for injury and pain, MS/Extremity: Negative for injury and deformity, Skin: Negative for injury, rash, and discoloration, Neuro: Negative for headache, weakness, numbness, tingling, and seizure. 15:16 Abdomen/GI: Positive for nausea and vomiting, Negative for abdominal pain. Exam: 15:16 Eyes: Pupils equal round and reactive to light, extra-ocular motions intact. Lids and jr8 lashes normal. Conjunctiva and sclera are non-icteric and not injected. Cornea within normal limits. Periorbital areas with no swelling, redness, or edema. ENT: Nares patent. No nasal discharge, no septal abnormalities noted. Tympanic membranes are normal and external auditory canals are clear. Oropharynx with no redness, swelling, or masses, exudates, or evidence of obstruction, uvula midline. Mucous membranes moist. Neck: Trachea midline, no thyromegaly or masses palpated, and no cervical lymphadenopathy. Supple, full range of motion without nuchal rigidity, or vertebral point tenderness. No Meningismus. Cardiovascular: Regular rate and rhythm with a normal S1 and S2. No gallops, murmurs, or rubs. Normal PMI, no JVD. No pulse deficits. Respiratory: Lungs have equal breath sounds bilaterally, clear to auscultation and percussion. No rales, rhonchi or wheezes noted. No increased work of breathing, no retractions or nasal flaring. Abdomen/GI: Soft, non-tender, with normal bowel sounds. No distension or tympany. No guarding or rebound. No evidence of tenderness throughout. Back: No spinal tenderness. No costovertebral tenderness. Full range of motion. Skin: Warm, dry with normal turgor. Normal color with no rashes, no lesions, and no evidence of cellulitis. MS/ Extremity: Pulses equal, no cyanosis. Neurovascular intact. Full, normal range of motion. Neuro: Awake and alert, GCS 15, oriented to person, place, time, and situation. Cranial nerves II-XII grossly intact. Motor strength 5/5 in all extremities. Sensory grossly intact. Cerebellar exam normal. Normal gait. Vital Signs: 14:47 BP 109 / 75; Pulse 107; Resp 18; Temp 97.9; Pulse Ox 100% on R/A; ph MDM: 14:57 Patient medically screened. [facility] 15:07 Data reviewed: vital signs, nurses notes, and as a result, I will discharge patient. jr8 Data interpreted: Pulse oximetry: on room air is 100 %. Interpretation: normal. Counseling: I had a detailed discussion with the patient and/or guardian regarding: the historical points, exam findings, and any diagnostic results supporting the discharge/admit diagnosis, the need for outpatient follow up, a family practitioner, to return to the emergency department if symptoms worsen or persist or if there are any questions or concerns that arise at home. Response to treatment: the patient's symptoms have markedly improved after treatment. Administered Medications: 14:57 Drug: Zofran (Ondansetron) 4 mg Route: PO; ph 15:15 Follow up: Response: Nausea is decreased ss Disposition: 10/06 07:42 Co-signature as Attending Physician, Randy Smith MD I agree with the assessment and [facility] plan of care. Disposition: 10/06/19 15:08 Discharged to Home. Impression: Nausea and vomiting. - Condition is Stable. - Discharge Instructions: Nausea and Vomiting, Adult. - Medication Reconciliation Form, Thank You Letter, Antibiotic Education, Prescription Opioid Use form. - Follow up: Adriano Simons DO; When: 5 - 6 days; Reason: Recheck today's complaints, Continuance of care, Re-evaluation by your physician. - Problem is new. - Symptoms have improved. Signatures: Randy Smith MD MD cha Smirch, Shelby RN RN Ravi Brooks, PA PA jr8 Kathleen Dennis RN RN ph Corrections: (The following items were deleted from the chart) 10/05 15:14 15:08 10/06/2019 15:08 Discharged to Home. Impression: Nausea and vomiting. Condition ss is Stable. Forms are Medication Reconciliation Form, Thank You Letter, Antibiotic Education, Prescription Opioid Use. Follow up: Adriano Simons; When: 5 - 6 days; Reason: Recheck today's complaints, Continuance of care, Re-evaluation by your physician. Problem is new. Symptoms have improved. jr8
--- NOTE | 2019-10-09 17:05 | ER ---
Nurse's Notes [facility] Name: Brenda Moody Age: 24 yrs Sex: Female : 1995 Arrival Date: 10/06/2019 Time: 14:38 Bed 9 Private MD: Adriano Simons Diagnosis: Nausea and vomiting Presentation: 10/05 14:47 Chief complaint: Patient states: Seen here this morning and dx w/ concussion, states, " ph I have been vomiting and can't keep anything down." Pt sent home w/ prescription for Zofran but states that she was unable to get prescription filled. Coronavirus screen: Patient denies a cough. Patient denies shortness of breath or difficulty breathing. Patient denies measured and/or subjective temperature greater than 100.4F prior to today's visit. Patient denies travel on a cruise ship or to a country the [facility] currently lists as an affected area. Patient denies contact with known and/or suspected case of COVID-19. Ebola Screen: No symptoms or risks identified at this time. Initial Sepsis Screen: Does the patient meet any 2 criteria? No. Patient's initial sepsis screen is negative. Does the patient have a suspected source of infection? No. Patient's initial sepsis screen is negative. Risk Assessment: Do you want to hurt yourself or someone else? Patient reports no desire to harm self or others. Onset of symptoms was October 06, 2019. 14:47 Method Of Arrival: Ambulatory ph 14:47 Acuity: SHAHAB 4 ph Historical: - Allergies: 14:49 No Known Allergies; ph - PMHx: 14:49 Bipolar disorder; chronic fatigue; Endometrosis; Hypothyroidism; ph - PSHx: 14:49 laproscopy for endometriosis; ph - Immunization history:: Adult Immunizations unknown. - Social history:: Smoking status: Patient denies any tobacco usage or history of. Screenin:56 Abuse screen: Denies threats or abuse. Denies injuries from another. Nutritional ph screening: No deficits noted. Tuberculosis screening: No symptoms or risk factors identified. Fall Risk None identified. Assessment: 14:55 General: Appears in no apparent distress. comfortable, slender, well groomed, Behavior ph is calm, cooperative, appropriate for age. Pain: Denies pain. Neuro: Level of Consciousness is awake, alert, obeys commands, Oriented to person, place, time, situation, Reports dizziness. Cardiovascular: Capillary refill < 3 seconds in bilateral fingers Patient's skin is warm and dry. Respiratory: Airway is patent Respiratory effort is even, unlabored, Respiratory pattern is regular, symmetrical. GI: Abdomen is flat, non-distended, Reports nausea, vomiting. Derm: Skin is intact, is healthy with good turgor, Skin is pink, warm \\T\\ dry. Musculoskeletal: Circulation, motion, and sensation intact. Range of motion: intact in all extremities. Vital Signs: 14:47 BP 109 / 75; Pulse 107; Resp 18; Temp 97.9; Pulse Ox 100% on R/A; ph ED Course: 14:38 Patient arrived in ED. ag5 14:41 Adriano Simons DO is Private Physician. ag5 14:49 Triage completed. ph 14:50 Arm band placed on. ph 14:55 Kathleen Dennis, RN is Primary Nurse. ph 14:56 Patient has correct armband on for positive identification. Bed in low position. Call ph light in reach. Side rails up X 1. Pulse ox on. NIBP on. Door closed. Noise minimized. Warm blanket given. 14:57 Randy Smith MD is Attending Physician. [facility] 14:57 No provider procedures requiring assistance completed. Patient did not have IV access ph during this emergency room visit. 15:07 Ravi Brooks PA is PHCP. jrSondra 15:07 Adriano Simons DO is Referral Physician. jr8 Administered Medications: 14:57 Drug: Zofran (Ondansetron) 4 mg Route: PO; ph 15:15 Follow up: Response: Nausea is decreased ss Outcome: 15:08 Discharge ordered by MD. elliott 15:14 Discharged to home ambulatory. ss 15:14 Condition: good 15:14 Discharge instructions given to patient, Instructed on discharge instructions, follow up and referral plans. Demonstrated understanding of instructions, follow-up care. 15:14 Patient left the ED. ss Signatures: Randy Smith MD MD cha Smirch, Shelby RN RN Ravi Brooks PA PA jr8 Kathleen Dennis RN RN Simran Hernandez 5
== END 2019-10-06 15:14 | disposition home or self-care (01) ==
LOC: ER 14:37
DX: R11.2 Nausea with vomiting, unspecified (principal)
CPT/HCPCS: 99283

== ENCOUNTER 2020-02-05 18:42 | Emergency (ER) | payer OTHER ==
--- OUTSIDE RECORDS SUMMARY | 2020-02-05 18:44 | XMS REPORT | Clinical Summary ---
:1995 Author Organization [facility] Address [address] [place] [address] Care Team Providers Name Role Phone Asked, No Pcp Primary Care Provider Unavailable Allergies No Known Active Allergies Medications Medication Sig Dispensed Refills Start [...] Sprain of upper back, initial encounter after 02/04/2019 Social History Tobacco Use Types Packs/Day Years [...] Assigned at Date Recorded Not on file Last Filed Vital Signs Vital Sign Reading Time Taken Comments Blood Pressure 105/67 07/04/2019 1:15 AM GRAIN TRIMMER Pulse 86 07/04/2019 1:15 AM GRAIN TRIMMER Temperature 36.8 C (98.3 F) 07/03/2019 7:06 PM GRAIN TRIMMER Respiratory Rate 16 07/04/2019 1:15 AM GRAIN TRIMMER Oxygen Saturation 98% 07/04/2019 1:15 AM GRAIN TRIMMER Inhaled Oxygen Concentration - - Weight 59 kg (130 lb) 07/03/2019 7:04 PM GRAIN TRIMMER Height 160 cm (5' 3") 07/03/2019 7:04 PM GRAIN TRIMMER Body Mass Index 23.03 07/03/2019 7:04 PM GRAIN TRIMMER Plan of Treatment Health Maintenance Due Date Last Done Comments CHLAMYDIA SCREENING 2011 CERVICAL CANCER SCREENING 2016 INFLUENZA VACCINE 12/09/2019 Procedures Procedure Name Priority Date/Time Associated Comments Diagnosis CT MAXILLOFACIAL WO STAT 07/04/2019 1:14 Resu lts for this CONTRAST AM GRAIN TRIMMER procedure are i n the results section. CT THORACIC SPINE WO STAT 07/04/2019 1:13 Res ults for this CONTRAST AM GRAIN TRIMMER procedure are i n the results section. POC , URINE STAT 07/04/2019 12:28 Res ults for this AM GRAIN TRIMMER procedure are i n the results section. after 02/04/[address] Maxillofacial Wo Contrast (07/04/2019 1:14 AM GRAIN TRIMMER) Specimen Narrative Performed At EXAMINATION: CT MAXILLOFACIAL [...] IMPRESSION: Unremarkable maxillofacial CT with no ac ho-chunk abnormality. [facility]-[id number] Procedure Note Hm Interface, Radiology Results Incoming - 07/04/2019 1:49 AM GRAIN TRIMMER EXAMINATION: CT MAXILLOFACIAL WO CONTRAST CLINICAL HISTORY: [...] IMPRESSION: Unremarkable maxillofacial CT with no ac ho-chunk abnormality. [facility]-[id number] Performing Organization Address [facility] [place] Phon e Number RADIANT [address] [place] [address] CT Thoracic Spine Wo Contrast (07/04/2019 1:13 AM GRAIN TRIMMER) Specimen Narrative Performed At EXAMINATION: CT THORACIC SPINE WO CONT RAST RADIANT CT IMAGING WAS PERFORMED WITH ITERATIVE RECONSTRUCTION TECHNIQUE AND/OR AUTOMATED EXPOSURE CONTROL TO REDUCE RAD IATION DOSE. CLINICAL HISTORY: fall pain COMPARISON: None. FINDINGS: There is no acute abnormality demonstrated. Specifica lly there is no fracture. There is no significant spondylosis or s tenosis. IMPRESSION: No significant abnormality. [facility]-[id number] Procedure Note Hm Interface, Radiology Results Incoming - 07/04/2019 1:22 AM GRAIN TRIMMER EXAMINATION: CT THORACIC SPINE WO CONTRAST CT IMAGING WAS PERFORMED WITH ITERATIVE RECONSTRUCTION TECHNIQUE AND/OR AUTOMATED EXPOSURE CONTROL TO REDUCE RADIATION DOSE. CLINICAL HISTORY: fall pain COMPARISON: None. FINDINGS: There is no acute abnormality demonstra fabi. Specifically there is no fracture. There is no significant spondylosis or s tenosis. IMPRESSION: No significant abnormality. [facility]-[id number] Performing Organization Address [facility] Phon e Number RADIANT [address] [place] [address] POC , urine (07/04/2019 12:28 AM GRAIN TRIMMER) Pathologist Sig nature test urine, POC Negative Internal QC QC acceptable Specimen Urine after 02/04/2019 Advance Directives For more information, please contact: [phone] Type Date Recorded Patient Probate Clerk Explanati on Advance Directives, Living Will and Medical Power of Legal Internship
--- OUTSIDE RECORDS SUMMARY | 2020-02-05 18:44 | XMS REPORT | Continuity of Care Document ---
:1995 Author Organization [facility] t Address [address] [place] [address] Care Team Providers Name Role Phone Asked, Pcp Primary Care Physician Unavailable Otilia Peck Attending Clinician Lorenzo Isaacs MD Attending Clinician Todd Oliveira MD Attending Clinician Blaine VALDEZ Attending Clinician Payers Payer Name Policy Type Policy Effective Date Expiration Date [facility] ce Number AETNAAETNA PPO [id number] 2018 [place] OPEN 00:00:00 [facility] [id number] /-Present PPO Problems Condition Condition Condition Status Onset Resolution Last Treating Co mments Source Name Details Category Date Date Treatment Clinician Date Chronic Chronic Problem Active [facility] fatigue fatigue [facility] Bipolar II Bipolar II Problem Active [facility] disorder disorder [facility] - major major Memoria depressive 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 Clinic s Vitamin D Vitamin D Problem Active [facility] insufficie insufficie [facility] - ncy ncy Memoria l [facility] Abnormal Abnormal Problem Active [facility] laboratory laboratory [place] [facility] - test test Memoria l [facility] Depression Depression Problem Active [facility] with with [facility] - anxiety anxiety Memoria l [facility] Seasonal Seasonal Problem Active [facility] allergies allergies Luke s - Memoria l [facility] Hypothyroi Hypothyroi Problem Active [facility] dism, dism, [facility] - unspecifie unspecifie Me moria d type d type l [facility] Clinics History of History of Problem Active [facility] suicide suicide [facility] attempt attempt Memoria l [facility] Vitamin Vitamin Problem Active [facility] B12 B12 [facility] - deficiency deficiency Me moria l [facility]ics History of History of Problem Active [facility] cold sores cold sores [facility] - Memoria l [facility] Clinics Repetitive Repetitive Problem Active [facility] intrusions intrusions [place] [facility] - of sleep of sleep Memori a l [facility] ent Clinics Daytime Daytime Problem Active [facility] somnolence somnolence [facility] - Memoria l [facility] Clinics Inattentio Inattentio Problem Active [facility] n n [facility] Non-season Non-season Problem Active [facility] al al [facility] - allergic allergic Memori a rhinitis, rhinitis, l unspecifie unspecifie Ou tpati d trigger d trigger ent Clinics Fever, Fever, Problem Active [facility] unspecifie unspecifie [place] kes - d d Memoria l [facility] ent Clinics Contact Contact Problem Active [facility] with and with and [facility] - (suspected (suspected Me moria ) exposure ) exposure l to other to other Outpat i viral viral ent communicab communicab Cl inics le le diseases diseases Cough Cough Problem Active [facility] Abnormal Abnormal Problem Active [facility] menstrual menstrual Luke s - cycle cycle Memoria l [facility] Clinics Allergic Allergic Problem Active [facility] reaction reaction [facility] - to insect to insect Saulo radha bite bite l [facility] Clinics Allergies, Adverse Reactions, Alerts This patient has no known allergies or adverse reactions. Social History Social Habit Start Date Stop Date Quantity Comments Source History [facility] odist Alcohol Std Drinks History [facility] Meth odist Alcohol Binge Sex Assigned At [facility] ethodist Tobacco use and 2019-07-03 2019-07-03 Never used [facility] ethodist exposure 00:00:00 00:00:00 Alcohol intake 2019-07-03 2019-07-03 Lifetime [facility] thodist 00:00:00 00:00:00 non-drinker (finding) History [facility] 2019-07-03 2019-07-03 1 [place] [facility] Alcohol Frequency 00:00:00 00:00:00 Smoking Status Start Date Stop Date Source Never smoker [place] [facility] cruzito Medications Ordered Filled Start Stop Current Ordering Indication Dosage Frequency Signature Comments Components Source Medication Medication Date Date Medication? Clinician (SIG) Name Name Naa Jacome Yes Adriano [address] [facility] ne ne 5-11 [place] applicatio [facility] - Acetonide Acetonide 00:00: n Mem oria 00 l [facility] ent [facility] ibuprofen 2019- No 600mg Q8H Take 1 [place] (ADVIL) 600 07-04- tablet Metho di MG tablet 00:00: 23:59 ([address] 00 :00 total) by mouth every 8 (eight) hours as needed for moderate pain for up to 30 days. diazePAM 2019- No 2mg Q6H Take 1 [place] (VALIUM) 2 07-04 tablet (2 Met hodi MG tablet 00:00: 23:59 mg total) st 00 :00 by mouth every 6 (six) hours as needed for muscle spasms for up to 3 days. Acyclovir Acyclovir Yes Adriano [address] [facility] [facility] ent [facility] Abilify Abilify Yes Adriano [address] [facility] Lamotrigine Lamotrigine Yes Adriano [address] [facility] Vyvanse Vyvanse Yes Adriano [address] [facility] Yes Adriano [address] [facility] l [facility] Vital Signs Vital Name Observation Time Observation Value Comments Source Systolic blood 2019-07-04 01:15:00 105 mm[Hg] [place] [facility] pressure Diastolic blood 2019-07-04 01:15:00 67 mm[Hg] [place] [facility] pressure Heart rate 2019-07-04 01:15:00 86 /min [facility] Respiratory rate 2019-07-04 01:15:00 16 /min [place] [facility] Oxygen saturation in 2019-07-04 01:15:00 98 /min Reyes [facility] Arterial blood by Pulse oximetry Body temperature 2019-07-03 19:06:09 36.83 Laura [place] [facility] Body height 2019-07-03 19:04:00 160 cm Reyes Anderson Body weight 2019-07-03 19:04:00 58.968 kg [facility] BMI 2019-07-03 19:04:00 23.03 kg/m2 [facility] Procedures Procedure Date / Time Performed Performing Clinician Sourc e CT MAXILLOFACIAL WO 2019-07-04 01:14:00 José Antonio Oliveira [facility] CONTRAST CT THORACIC SPINE WO 2019-07-04 01:13:49 José Antonio Oliveira [facility] CONTRAST POC , URINE 2019-07-04 00:28:00 José Antonio Oliveira on [facility] Plan of Care Planned Activity Planned Date Details Comments Source Future Scheduled 2019-12-09 INFLUENZA VACCINE [place] [facility] Test 00:00:00 [code = INFLUENZA VACCINE] Future Scheduled 2016 Screening for [facility] Test 00:00:00 malignant neoplasm of cervix (procedure) [code = 713172362] Future Scheduled 2011 CHLAMYDIA SCREENING [place] [facility] Test 00:00:00 [code = CHLAMYDIA SCREENING] Encounters Start End Encounter Admission Attending Care Care Encounter Source Date/Time Date/Time Type Type Clinicians Facility Department ID 2020-01-25 2020-01-25 [facility] [id number] [facility] 11:13:00 11:13:00 t [facility] 2019-11-21 2019-11-22 Emergency Nannette Bravo [facility] [id number] 20:56:19 00:16:00 Benjamin Isaacs [id number] [place] [id number] [place] [id number] 2019-11-03 2019-11-03 [facility] [id number] 11:00:00 11:00:00 t [facility] Medicine [facility] 2019-10-10 2019-10-10 [facility] [id number] 09:51:00 09:51:00 t [employer] [facility] 2019-10-04 2019-10-04 [facility] [id number] 15:07:00 15:07:00 [place] [facility] Medicine l Medicine Outpati ent Clinics 2019-09-25 2019-09-25 [facility] [id number] 11:24:00 11:24:00 [place] [facility] Medicine l Medicine Outpati ent Clinics 2019-09-18 2019-09-18 [facility] [id number] 13:00:00 13:00:00 [place] [facility] Medicine l Medicine Outpati ent Clinics 2019-09-05 2019-09-05 [facility] [id number] 14:53:00 14:53:00 [place] Drive [facility] l Medicine Outpati ent Clinics 2019-08-15 2019-08-15 [facility] [id number] 11:03:00 11:03:00 [place] [facility] l Medicine Outpati ent Clinics 2019-08-03 2019-08-03 [facility] [id number] 11:13:00 11:13:00 [place] [facility] Medicine l Medicine Outpati ent Clinics 2019-08-01 2019-08-01 [facility] [id number] 11:00:00 11:00:[address] [facility] l Medicine Outpati ent Clinics 2019-08-01 2019-08-01 [facility] [id number] 08:16:00 08:16:00 [place] [facility] Medicine l Medicine Outpati ent Clinics 2019-07-13 2019-07-13 [facility] [id number] 16:32:00 16:32:00 t [place] [facility] Medicine l Medicine Outpati ent Clinics 2019-07-06 2019-07-06 [facility] [id number] 13:00:00 13:00:00 [place] [facility] l Medicine Outpati ent Clinics 2019-07-03 2019-07-04 [place] [id number] [place] [address] 00:00:00 00:00:[address] [place] [address] 2019-07-03 2019-07-03 [facility] [id number] 11:42:00 11:42:00 t [employer] [facility] Medicine Outpati ent Clinics 2019-06-27 2019-06-27 [facility] [id number] 10:00:00 10:00:00 t [employer] [facility] Medicine Outpati ent Clinics 2019-06-21 2019-06-21 [facility] [id number] 10:19:00 10:19:00 t [employer] [facility] l Medicine Outpati ent Clinics 2019-06-20 2019-06-20 [facility] [id number] 10:22:00 10:22:00 t [employer] [facility] l Medicine Outpati ent Clinics 2019-06-19 2019-06-19 [facility] [id number] 16:00:00 16:00:00 t [employer] [facility] Medicine Outpati ent Clinics 2019-06-09 2019-06-09 [facility] [id number] 10:45:00 10:45:00 t [employer] [facility] l Medicine Outpati ent Clinics 2019-06-08 2019-06-08 [facility] [id number] 15:31:00 15:31:00 t [employer] [facility] Medicine Outpati ent Clinics 2019-05-24 2019-05-24 [facility] [id number] 08:28:00 08:28:00 t [employer] [facility] Medicine Outpati ent Clinics 2019-05-19 2019-05-19 [facility] [id number] 16:07:00 16:07:00 t [employer] [facility] l Medicine Outpati ent Clinics 2019-05-19 2019-05-19 [facility] [id number] 10:34:00 10:34:[address] [place] [address] [place] - Drive [facility] Medicine Outpati ent Clinics 2019-05-16 2019-05-16 [facility] [id number] 16:30:00 16:30:[address] [place] [address] [place] - Drive [facility] Medicine Outpati ent Clinics 2019-04-26 2019-04-26 [facility] [id number] 08:11:00 08:11:00 [address] [place] [address] [place] - Drive [facility] Medicine Outpati ent Clinics 2019-04-25 2019-04-25 [facility] [id number] 10:00:00 10:00:[address] [place] [address] [place] - Drive [facility] Medicine Outpati ent Clinics 2019-04-14 2019-04-14 [facility] [id number] 09:47:00 09:47:00 [address] [place] [address] [place] - Drive [facility] Medicine Outpati ent Clinics 2019-04-12 2019-04-12 [facility] [id number] 16:30:00 16:30:[address] [place] [address] [address] [place] - Drive [facility] Medicine Outpati ent Clinics 2019-03-15 2019-03-15 [facility] [id number] 11:45:00 11:45:00 [place] [employer] [place] - Drive [facility] Medicine Outpati ent Clinics 2019-03-14 2019-03-14 [facility] [id number] 16:30:00 16:30:00 [place] [employer] [place] [place] - Drive [facility] Medicine Outpati ent Clinics 2019-02-27 2019-02-27 Office Liv Valladares [facility] [id number] 13:53:45 14:23:45 Visit AMBULATOR [id number] Y [id number] 2019-02-24 2019-02-24 [facility] [id number] 09:30:00 09:30:00 [place] [employer] [place] Drive [facility] Outpati ent Clinics 2019-02-10 2019-02-10 Outpatient [facility] Gutiérrezt [id number] 08:30:00 08:30:00 [place] [address] [place] [address] [facility] Outpati ent Clinics 2019-02-09 2019-02-09 Outpatient [facility] Guti[facility]rezt [id number] 11:48:00 11:48:[address] [place] [address] ke s [facility] Outpati ent Clinics 2019-02-08 2019-02-08 Outpatient [facility] Guti[facility]rezt [id number] 09:30:00 09:30:00 [place] [address] [place] [address] [facility] Outpati ent Clinics 2019-01-31 2019-01-31 Outpatient [facility] Guti[facility]rezt [id number] 16:15:00 16:15:00 [facility] s [facility] 2019-01-17 2019-01-17 Outpatient Brock Gutiérrezt [id number] 11:15:00 11:15:00 [facility] Next 2 [place] [facility] Clinics Results Test Description Test Time Test Results Result Source Comments Comments CT Maxillofacial 2019-06-11 Renee Velarde on Wo Contrast 5 Radiology Results Method ist 01:46:21 - 07/04/2019 1:49 AM CSTEXAMINATION: CT MAXILLOFACIAL WO [...] appreciated.IMPRESSIO N:Unremarkable maxillofacial CT with no acute abnormality.[id number] CT Thoracic Spine 2019-06-11 Antonia Lynn Wo Contrast 5 Radiology Results Method ist 01:19:01 - 07/04/2019 1:22 AM CSTEXAMINATION: CT THORACIC SPINE WO CONTRASTCT IMAGING WAS PERFORMED WITH ITERATIVE RECONSTRUCTION TECHNIQUE AND/OR AUTOMATED EXPOSURE CONTROL TO REDUCE RADIATION DOSE.CLINICAL HISTORY: fall painCOMPARISON: None.FINDINGS: There is no acute abnormality demonstrated. Specifically there is no fracture.There is no significant spondylosis or stenosis.IMPRESSION:N o significant abnormality.[facility]-[id number] POC , urine 2019-07-04 00:28:00 Test Item Value Reference Range Interpretation Comme nts test urine, POC (test code = [id number]) Negative Internal QC (test code = 257) QC acceptable Reyes Anderson
--- OUTSIDE RECORDS SUMMARY | 2020-02-05 18:44 | XMS REPORT ---
:1995 Author Organization [employer] Care Team Providers Name Role Phone Wheeler, Na Provider Role Unavailable Allergies No Known Allergies Problems Problem Type Condition Code Onset Dates Condition Statu s Problem History of suicide attempt Z91.5 A ctive Problem 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 Active Problem Daytime somnolence R40.0 Active Problem Abnormal menstrual cycle N92.6 Act rupinder Assessment Allergic rhinitis J30.9 Active Problem Fever, unspecified R50.9 Active Problem Allergic [...]
--- OUTSIDE RECORDS SUMMARY | 2020-02-05 18:44 | XMS REPORT ---
[...] Abnormal menstrual cycle N92.6 Act rupinder Assessment Hypothyroidism, unspecified type E03.9 Active Problem Fever, unspecified R50.9 Active Problem [...]
--- OUTSIDE RECORDS SUMMARY | 2020-02-05 18:44 | XMS REPORT | Summary of Care ---
:1995 Author Organization [facility] Address [address] [place] [address] Care Team Providers Name Role Phone Pcp, Patient Does Not Have A Primary Care Provider +[id number] [id number] Reason for Visit Reason Comments Other restless legs Auth/Cert Status Reason Specialty Diagnoses / Referred By Referred To Procedures Contact Contact Emergency Medicine Ad[facility] Em ergency Dept [address] [place] [phone] Fax: Encounter Details Date Type Department Care Team Description 11/21/2019 - Emergency ADC-Emergency Depart Nannette Fierro EMNP [address] [id number] 11/22/[address] [place] [address] Dr rupinder Isaacs, Benjamin Ventura MD [address] [id number] [place], [place] [id number] Allergies No Known Allergiesdocumented as of this encounter (statuses as of 11/22/2019) Medications Not on filedocumented as of this encounter (statuses as of 11/22/2019) Active Problems Not on filedocumented as of this encounter (statuses as of 11/22/2019) Social History Tobacco Use Types Packs/Day Years Used Date Never Assessed Sex Assigned at Date Recorded Not on file Job Start Date Occupation Industry Not on file Not on file Not on file Travel History Travel Start Travel End No recent travel history available. COVID-19 Exposure Response Date Recorded In the last month, have you been in contact Unable to assess 11/21/2019 8:29 PM CDT with someone who was confirmed or suspected to have Coronavirus / COVID-19? documented as of this encounter Last Filed Vital Signs Vital Sign Reading Time Taken Comments Blood Pressure 125/82 11/21/2019 8:41 PM CDT Pulse 103 11/21/2019 8:41 PM CDT Temperature 37.2 C (99 F) 11/21/2019 8:41 PM CDT Respiratory Rate 18 11/21/2019 8:41 PM CDT Oxygen Saturation 98% 11/21/2019 8:41 PM CDT Inhaled Oxygen Concentration - - Weight 56.7 kg (125 lb) 11/21/2019 8:41 PM CDT Height - - Body Mass Index - - documented in this encounter Plan of Treatment Health Maintenance Due Date Last Done Comments VARICELLA VACCINES (1 of 2 - 1996 2-dose childhood series) DTaP,Tdap,and Td Vaccines (1 - 2006 Tdap) HPV VACCINES (1 - Female 2-dose 2006 series) Depression Screening 2007 CHLAMYDIA SCREENING 2011 PAP SMEAR 2016 INFLUENZA VACCINE (#1) 2020 PNEUMOCOCCAL 0-64 YEARS COMBINED Aged Out No longer eligible based on SERIES patient's age to complete this topic documented as of this encounter Results Not on filedocumented in this encounter documented as of this encounter
[2020-02-05 19:22] LABS: Absolute Lymphocytes (CBC) 1.4 K/uL (0.7-4.9); Basophils % 1.1 % (0-1.3); Hematocrit 41.3 % (36.0-45.0); Lymphocytes % 21.2 % (15.3-44.8); MPV 7.8 fL (7.6-11.3); RBC Red Blood Cell Count 5.15 M/uL (3.86-4.86)
[2020-02-05] MEDS ORDERED: Ringers Lactate 1,000 ML IV ONE ×2 (19:23→20:18)
[2020-02-05] MEDS ORDERED: ONDANSETRON 4 MG/2 ML VIAL ONE ×2 (19:23→20:11)
[2020-02-05] MEDS ORDERED: LORazepam 2 MG/ML VIAL ONE (19:23)
[2020-02-05 19:26] LABS: Potassium 3.1 mmol/L (3.5-5.1)
[2020-02-05] MEDS ORDERED: POTASSIUM CL SA 10 MEQ TAB PO ONE (19:47)
[2020-02-05] MEDS ORDERED: NA CHLORIDE 0.9% 1,000 ML ONE (20:11)
--- NOTE | 2020-02-05 20:31 | EDPHYS ---
Physician Documentation [facility] Name: Brenda Moody Age: 24 yrs Sex: Female : 1995 Arrival Date: 02/05/2020 Time: 18:43 Bed 13 Private MD: ED Physician Randy Smith HPI: 02/04 18:58 This 24 yrs old Female presents to ER via Ambulatory with complaints of jr8 Nausea/Vomiting, Shaking. 18:58 Pt presents to ED for dizziness and nausea after drinking a 5 hr energy drink for the jr8 first time 3-4 hours ago. The patient also states that she took Vivance 60 mg today as well. Denies CP, SOB, LOC, or any other symptoms at this time. . 20:28 Onset: The symptoms/episode began/occurred acutely, today. The symptoms are aggravated jr8 by nothing. The symptoms are alleviated by nothing. Severity of symptoms: At their worst the symptoms were moderate in the emergency department the symptoms are unchanged. The patient has not experienced similar symptoms in the past. The patient has not recently seen a physician. 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 - Social history:: Smoking status: Patient denies any tobacco usage or history of. ROS: 20:28 Eyes: Negative for injury, pain, redness, and discharge, ENT: Negative for injury, jr8 pain, and discharge, Neck: Negative for injury, pain, and swelling, Cardiovascular: Negative for chest pain, palpitations, and edema, Respiratory: Negative for shortness of breath, cough, wheezing, and pleuritic chest pain, Back: Negative for injury and pain, MS/Extremity: Negative for injury and deformity, Skin: Negative for injury, rash, and discoloration, Neuro: Negative for headache, weakness, numbness, tingling, and seizure. 20:28 Abdomen/GI: Positive for nausea and vomiting, Negative for abdominal pain, diarrhea. Exam: 20:28 Eyes: Pupils equal round and reactive to light, extra-ocular motions intact. Lids and jr8 lashes normal. Conjunctiva and sclera are non-icteric and not injected. Cornea within normal limits. Periorbital areas with no swelling, redness, or edema. ENT: Nares patent. No nasal discharge, no septal abnormalities noted. Tympanic membranes are normal and external auditory canals are clear. Oropharynx with no redness, swelling, or masses, exudates, or evidence of obstruction, uvula midline. Mucous membranes moist. Neck: Trachea midline, no thyromegaly or masses palpated, and no cervical lymphadenopathy. Supple, full range of motion without nuchal rigidity, or vertebral point tenderness. No Meningismus. Cardiovascular: Regular rate and rhythm with a normal S1 and S2. No gallops, murmurs, or rubs. Normal PMI, no JVD. No pulse deficits. Respiratory: Lungs have equal breath sounds bilaterally, clear to auscultation and percussion. No rales, rhonchi or wheezes noted. No increased work of breathing, no retractions or nasal flaring. Abdomen/GI: Soft, non-tender, with normal bowel sounds. No distension or tympany. No guarding or rebound. No evidence of tenderness throughout. Back: No spinal tenderness. No costovertebral tenderness. Full range of motion. Skin: Warm, dry with normal turgor. Normal color with no rashes, no lesions, and no evidence of cellulitis. MS/ Extremity: Pulses equal, no cyanosis. Neurovascular intact. Full, normal range of motion. Neuro: Awake and alert, GCS 15, oriented to person, place, time, and situation. Cranial nerves II-XII grossly intact. Motor strength 5/5 in all extremities. Sensory grossly intact. Cerebellar exam normal. Normal gait. Vital Signs: 18:48 BP 121 / 86; Pulse 113; Resp 22; Temp 97; Pulse Ox 100% ; Weight 56.7 kg; Height 5 ft. jl7 3 in. (160.02 cm); Pain 8/10; 19:44 BP 130 / 84; Pulse 91; Resp 16 S; Pulse Ox 100% on R/A; ca1 20:32 BP 129 / 89; Pulse 92; Resp 15 S; Pulse Ox 100% on R/A; ca1 18:48 Body Mass Index 22.14 (56.70 kg, 160.02 cm) jl7 MDM: 18:52 Patient medically screened. jr8 20:28 Data reviewed: vital signs, nurses notes, lab test result(s), EKG. Data interpreted: jr8 Pulse oximetry: on room air is 100 %. Interpretation: normal. Counseling: I had a detailed discussion with the patient and/or guardian regarding: the historical points, exam findings, and any diagnostic results supporting the discharge/admit diagnosis, lab results, the need for outpatient follow up, a family practitioner, to return to the emergency department if symptoms worsen or persist or if there are any questions or concerns that arise at home. Response to treatment: the patient's symptoms have mildly improved after treatment, patient is well hydrated. 02/04 18:57 Order name: CBC with Diff; Complete Time: 19:33 02/04 18:57 Order name: Basic Metabolic Panel; Complete Time: 19:33 8 02/04 18:57 Order name: EKG - Nurse/Tech; Complete Time: 19:18 8 02/04 18:58 Order name: IV; Complete Time: 19:07 Administered Medications: 19:09 Drug: Ringers - Lactated Ringers Solution 1000 ml Route: IV; Rate: bolus; Site: right ca1 antecubital; 20:01 Follow up: Response: No adverse reaction; IV Status: Completed infusion; IV Intake: ca1 1000ml 19:11 Drug: Zofran (Ondansetron) 4 mg Route: IVP; Site: right antecubital; ca1 20:02 Follow up: Response: No adverse reaction; Nausea unchanged ca1 19:15 Drug: Ativan 0.5 mg Route: IVP; Site: right antecubital; ca1 20:02 Follow up: Response: No adverse reaction; No change in condition ca1 19:38 Drug: Potassium Chloride 40 mEq Route: PO; rr5 20:02 Follow up: Response: No adverse reaction ca1 20:01 Drug: Ringers - Lactated Ringers Solution 1000 ml Route: IV; Rate: bolus; Site: right ca1 antecubital; 20:37 Follow up: Response: No adverse reaction; IV Status: Completed infusion; IV Intake: ca1 600ml 20:01 Drug: Zofran (Ondansetron) 4 mg Route: IVP; Site: right antecubital; ca1 20:37 Follow up: Response: No adverse reaction; Nausea is decreased ca1 20:25 Drug: Meclizine 25 mg Route: PO; ca1 20:37 Follow up: Response: No adverse reaction ca1 Disposition: 02/05 13:57 Co-signature as Attending Physician, Randy Smith MD I agree with the assessment and [facility] plan of care. Disposition: 02/05/20 20:30 Discharged to Home. Impression: Adverse effect of caffeine. - Condition is Stable. - Discharge Instructions: Panic Attacks. - Medication Reconciliation Form, Thank You Letter, Antibiotic Education, Prescription Opioid Use form. - Follow up: Private Physician; When: 2 - 3 days; Reason: Recheck today's complaints, Continuance of care, Re-evaluation by your physician. - Problem is new. - Symptoms have improved. Signatures: Dispatcher [employer] EDRandy Dailey MD MD cha Roszak, Josh, PA PA jr8 Letha Murray, RN RN jl7 Amado Yadav, RN RN rr5 Katelyn Woods RN RN ca1 Corrections: (The following items were deleted from the chart) 02/04 20:38 20:30 02/05/2020 20:30 Discharged to Home. Impression: Adverse effect of caffeine. ca1 Condition is Stable. Forms are Medication Reconciliation Form, Thank You Letter, Antibiotic Education, Prescription Opioid Use. Follow up: Private Physician; When: 2 - 3 days; Reason: Recheck today's complaints, Continuance of care, Re-evaluation by your physician. Problem is new. Symptoms have improved. jr8
--- NOTE | 2020-02-05 20:31 | ER ---
Nurse's Notes [facility] Name: Brenda Moody Age: 24 yrs Sex: Female : 1995 Arrival Date: 02/05/2020 Time: 18:43 Bed 13 Private MD: Diagnosis: Adverse effect of caffeine Presentation: 02/04 18:48 Chief complaint: Patient states: Reports drinking a 5-hour energy shot 3-4 hours ago "I jl7 feel really bad, really shaky and my head hurts really bad." Reports nause, denies V/D. Coronavirus screen: Client denies travel out of the [place] in the last 14 days. At this time, the client does not indicate any symptoms associated with coronavirus-19. Ebola Screen: No symptoms or risks identified at this time. Initial Sepsis Screen: Does the patient meet any 2 criteria? No. Patient's initial sepsis screen is negative. Does the patient have a suspected source of infection? No. Patient's initial sepsis screen is negative. Risk Assessment: Do you want to hurt yourself or someone else? Patient reports no desire to harm self or others. Onset of symptoms was February 05, 2020 at 15:00. Care prior to arrival: None. 18:48 Method Of Arrival: Ambulatory 7 18:48 Acuity: SHAHAB 3 jl7 Triage Assessment: 18:51 General: Appears in no apparent distress. uncomfortable, Behavior is cooperative, jl7 anxious. Pain: Complains of pain in RIGGS Pain currently is 8 out of 10 on a pain scale. GI: Reports nausea. 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 - Social history:: Smoking status: Patient denies any tobacco usage or history of. Screenin:04 Abuse screen: Denies threats or abuse. Denies injuries from another. Nutritional ca1 screening: No deficits noted. Tuberculosis screening: No symptoms or risk factors identified. Fall Risk IV access (20 points). Assessment: 19:04 General: Appears in no apparent distress. uncomfortable, Behavior is cooperative, ca1 appropriate for age, anxious. Pain: Complains of pain in left upper quadrant and left lower quadrant Pain currently is 8 out of 10 on a pain scale. Pain began 2 hours ago. Neuro: Level of Consciousness is awake, alert, obeys commands. Neuro: Reports headache. Cardiovascular: Heart tones S1 S2 present Capillary refill < 3 seconds Patient's skin is warm and dry. Respiratory: Airway is patent Respiratory effort is even, unlabored, Respiratory pattern is regular, symmetrical, Breath sounds are clear bilaterally. GI: Abdomen is flat, non-distended, Bowel sounds present X 4 quads. Abd is soft X 4 quads Abdomen is tender to palpation in left upper quadrant and left lower quadrant Reports nausea. : No signs and/or symptoms were reported regarding the genitourinary system. EENT: No signs and/or symptoms were reported regarding the EENT system. Derm: Skin is intact, is healthy with good turgor, Skin is pink, warm \\T\\ dry. Musculoskeletal: Circulation, motion, and sensation intact. Capillary refill < 3 seconds. 19:44 Reassessment: Patient appears in no apparent distress at this time. Patient and/or ca1 family updated on plan of care and expected duration. Pain level reassessed. Patient is alert, oriented x 3, equal unlabored respirations, skin warm/dry/pink. 20:32 Reassessment: Patient appears in no apparent distress at this time. Patient is alert, ca1 oriented x 3, equal unlabored respirations, skin warm/dry/pink. Vital Signs: 18:48 BP 121 / 86; Pulse 113; Resp 22; Temp 97; Pulse Ox 100% ; Weight 56.7 kg; Height 5 ft. jl7 3 in. (160.02 cm); Pain 8/10; 19:44 BP 130 / 84; Pulse 91; Resp 16 S; Pulse Ox 100% on R/A; ca1 20:32 BP 129 / 89; Pulse 92; Resp 15 S; Pulse Ox 100% on R/A; ca1 18:48 Body Mass Index 22.14 (56.70 kg, 160.02 cm) jl7 ED Course: 18:43 Patient arrived in ED. ag5 18:50 Triage completed. jl7 18:51 Arm band placed on right wrist. jl7 18:52 Katelyn Woods, KUMAR is Primary Nurse. ca1 18:52 Ravi Brooks PA is PHCP. jr8 18:52 Randy Smith MD is Attending Physician. jr8 19:04 Patient has correct armband on for positive identification. Placed in gown. Bed in low ca1 position. Call light in reach. Side rails up X 1. Pulse ox on. NIBP on. Warm blanket given. 19:04 No provider procedures requiring assistance completed. Initial lab(s) drawn, by me, ca1 sent to lab. Inserted saline lock: 20 gauge in right antecubital area, using aseptic technique. Blood collected. 20:32 IV discontinued, intact, bleeding controlled, No redness/swelling at site. Pressure ca1 dressing applied. Administered Medications: 19:09 Drug: Ringers - Lactated Ringers Solution 1000 ml Route: IV; Rate: bolus; Site: right ca1 antecubital; 20:01 Follow up: Response: No adverse reaction; IV Status: Completed infusion; IV Intake: ca1 1000ml 19:11 Drug: Zofran (Ondansetron) 4 mg Route: IVP; Site: right antecubital; ca1 20:02 Follow up: Response: No adverse reaction; Nausea unchanged ca1 19:15 Drug: Ativan 0.5 mg Route: IVP; Site: right antecubital; ca1 20:02 Follow up: Response: No adverse reaction; No change in condition ca1 19:38 Drug: Potassium Chloride 40 mEq Route: PO; rr5 20:02 Follow up: Response: No adverse reaction ca1 20:01 Drug: Ringers - Lactated Ringers Solution 1000 ml Route: IV; Rate: bolus; Site: right ca1 antecubital; 20:37 Follow up: Response: No adverse reaction; IV Status: Completed infusion; IV Intake: ca1 600ml 20:01 Drug: Zofran (Ondansetron) 4 mg Route: IVP; Site: right antecubital; ca1 20:37 Follow up: Response: No adverse reaction; Nausea is decreased ca1 20:25 Drug: Meclizine 25 mg Route: PO; ca1 20:37 Follow up: Response: No adverse reaction ca1 Intake: 20:01 IV: 1000ml; Total: 1000ml. ca1 20:37 IV: 600ml; Total: 1600ml. ca1 Outcome: 20:30 Discharge ordered by MD. elliott 20:38 Discharged to home ambulatory. ca1 20:38 Condition: stable 20:38 Discharge instructions given to patient, Instructed on discharge instructions, follow up and referral plans. Demonstrated understanding of instructions, follow-up care. 20:38 Patient left the ED. ca1 Signatures: Ravi Brooks PA PA jr8 Leal, Jahala RN RN jl7 Amado Yadav RN RN rr5 AcobKatelyn, RN RN ca1 David, Simran ag5 Corrections: (The following items were deleted from the chart) 19:08 19:04 General: Appears in no apparent distress. uncomfortable, Behavior is calm, ca1 cooperative, appropriate for age, ca1
[2020-02-05] MEDS ORDERED: MECLIZINE HCL 12.5 MG TAB ONE (20:36)
[2020-02-05 20:45] VITALS: TEMP 97; O2SAT 100
[2020-02-05 20:47] VITALS: BP 129/89
--- NOTE | 2020-02-06 10:45 | EKG ---
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
== END 2020-02-05 20:38 | disposition home or self-care (01) ==
LOC: ER 18:42
DX: R11.2 Nausea with vomiting, unspecified (principal); T43.615A Adverse effect of caffeine, initial encounter; F31.9 Bipolar disorder, unspecified; E03.9 Hypothyroidism, unspecified
CPT/HCPCS: 96365; 93005; 85025; 80048; 36415; 96375; 99284; J8597; J7120 ×2; J7030; J2405 ×2